=== PATIENT | male | born 1945 | race Caucasian/White ===

== ENCOUNTER 2017-02-03 15:02 | Emergency (ER) | payer MEDICARE, MEDICAID ==
--- NOTE | 2017-02-03 15:12 | ER Document Report ---
ED Cardiac - General Chief Complaint: Chest Pain > 30 Stated Complaint: DIZZINESS Notes: The patient is a 71-year-old male, past medical history diabetes, hypertension, CAD s/p 3 stents, vascular dementia, presents with 4 weeks of intermittent dizziness described as room spinning. He says the dizziness is worse when he stands up. He also having intermittent chest pain over the same time period. He denies numbness, tingling, headache, current chest pain, shortness of breath , back pain, blurry vision, fevers, chills, neck pain or rash. TRAVEL OUTSIDE OF THE [place] IN LAST 30 DAYS: No - Related Data Allergies/Adverse Reactions: No Known Allergies Allergy (Verified 02/03/17 15:44) Past Medical History - General Information source: Patient - Social History Smoking Status: Unknown if Ever Smoked Family History: Reviewed & Not Pertinent - Past Medical History Cardiac Medical History: Reports: Hx Coronary Artery Disease, Hx Heart Attack, Hx Hypercholesterolemia, Hx Hypertension Pulmonary Medical History: Reports: Hx Pneumonia Denies: Hx Tuberculosis Endocrine Medical History: Reports: Hx Diabetes Mellitus Type 2 Musculoskeltal Medical History: Reports Hx Arthritis Psychiatric Medical History: Reports: Hx Anxiety, Hx Depression Traumatic Medical History: Reports: Hx Fractures - left arm childhood Past Surgical History: Reports: Hx Cardiac Catheterization - Stent x3, Hx Cholecystectomy, Hx Coronary Stent. Denies: Hx Pacemaker - Immunizations Immunizations up to date: Yes Hx Diphtheria, Pertussis, Tetanus Vaccination: No Hx Pneumococcal Vaccination: 09/20/10 Review of Systems - Review of Systems Notes: REVIEW OF SYSTEMS: CONSTITUTIONAL: -fevers, -chills EENT: -eye pain, -difficulty swallowing, -nasal congestion CARDIOVASCULAR: +chest pain, -syncope. RESPIRATORY: -cough, -SOB GASTROINTESTINAL: -abdominal pain, -nausea, -vomiting, -diarrhea GENITOURINARY: -dysuria, -hematuria MUSCULOSKELETAL: -back pain, -neck pain SKIN: -rash or skin lesions. HEMATOLOGIC: -easy bruising or bleeding. LYMPHATIC: -swollen, enlarged glands. NEUROLOGICAL: -altered mental status or loss of consciousness, -headache, + dizziness PSYCHIATRIC: -anxiety, -depression. ALL OTHER SYSTEMS REVIEWED AND NEGATIVE. Physical Exam - Vital signs Vitals: Temp Pulse Resp BP Pulse Ox 98.1 F 59 L 20 148/69 H 94 02/03/17 15:15 02/03/17 15:15 02/03/17 15:15 02/03/17 15:15 02/03/17 15:15 - Notes Notes: PHYSICAL EXAMINATION: GENERAL: Well-appearing, well-nourished and in no acute distress. HEAD: Atraumatic, normocephalic. EYES: Horizontal nystagmus when looking right. Pupils equal round and reactive to light, extraocular movements intact, sclera anicteric, conjunctiva are normal. ENT: nares patent, oropharynx clear without exudates. Moist mucous membranes. NECK: Normal range of motion, supple without lymphadenopathy LUNGS: Breath sounds clear to auscultation bilaterally and equal. No wheezes rales or rhonchi. HEART: Regular rate and rhythm without murmurs ABDOMEN: Soft, nontender, normoactive bowel sounds. No guarding, no rebound. No masses appreciated. EXTREMITIES: Normal range of motion, no pitting or edema. No cyanosis. NEUROLOGICAL: +past pointing. Cranial nerves grossly intact. Normal speech, normal gait. Normal sensory, motor, and reflex exams. PSYCH: Normal mood, normal affect. SKIN: Warm, Dry, normal turgor, no rashes or lesions noted. Course - Re-evaluation Re-evalutation: Patient does have symptoms of posterior cerebellar involvement. Will obtain CT head and then MRI of the brain to assess posterior circulation. He already received 162 mg aspirin by EMS earlier today. He does not have any chest pain at this time. HEART score is 3. 02/03/17 21:58 Pt's MRI of the brain does not show any evidence of posterior cerebellar involvement or any other acute changes. Patient's symptoms consistent with a vertigo and treated with meclizine. Chest pain is atypical in nature and has been ongoing for some the last month. 2 sets of troponins are negative and EKG does not show any ischemic changes. Will have patient follow with his primary care physician for further evaluation and treatment. Patient comfortable with plan. - Vital Signs Vital signs: Temp Pulse Resp BP Pulse Ox 98.0 F 55 L 16 165/82 H 95 02/03/17 19:01 02/03/17 18:15 02/03/17 21:31 02/03/17 21:31 02/03/17 21:31 - Laboratory Result Diagrams: 02/03/17 16:34 02/03/17 16:34 Laboratory results interpreted by me: 03/17/17 03/17/17 16:34 16:34 RBC 3.92 L Hgb 12.1 L Hct 36.3 L Glucose 331 H - Diagnostic Test Radiology reviewed: Image reviewed, Reports reviewed - EKG Interpretation by Me EKG shows normal: Sinus rhythm, [place], Intervals, QRS Complexes, ST-T Waves Voltage: Consistant with LVH When compared to previous EKG there are: No significant change Discharge - Discharge Clinical Impression: Vertigo Chest pain Qualifiers: Chest pain type: unspecified Qualified Code(s): R07.9 - Chest pain, unspecified Condition: Good Disposition: HOME, SELF-CARE Additional Instructions: Your CAT scan of the head and MRI of the brain did not show any evidence of stroke causing her dizziness. You do have symptoms of vertigo and meclizine may help with her symptoms. The blood work and EKG looking at your heart does not show any evidence of acute heart attack. He must follow-up with her primary care physician for further evaluation and treatment. Return immediately to the emergency room if he have worsening chest pain or any other concerns. Vertigo You have experienced an episode of vertigo -- a whirling dizziness which may be accompanied by nausea and vomiting or staggering. Vertigo is often caused by an irritation of the inner ear, in which case it is called labyrinthitis. It can also be a symptom of a degenerating inner ear, nerve damage, or brain injury. Your physician has evaluated you to determine whether any further testing is necessary. Vertigo is often treated with dramamine or meclizine. These medications are helpful, but stronger medication may be needed if you are vomiting. Rest in bed. You should not drive or operate machinery until completely better. It may take one to three weeks for recovery. If there are new symptoms, such as decreased hearing or vision, severe headache, weakness or faintness, or confusion, call the physician. CHEST PAIN OF UNCLEAR CAUSE: The exact cause of your chest pain isn't clear. Fortunately, there is no evidence of a dangerous medical condition. Further testing may be required to find the source of the pain. Most often, we find that this pain is coming from the chest wall -- the muscles or rib joints in the chest. But chest pain can come from the lung and lung lining, the esophagus, the heart valves or heart lining, and even the stomach or gallbladder. Rest. Eat lightly until the pain is gone. We may prescribe medicine for pain and inflammation. You should call the physician immediately if the pain radiates to the shoulder, jaw or arms; if you start to run a fever or develop a cough; or if you develop shortness of breath, or other new or alarming symptoms. NORMAL EXAM AND WORKUP: At this time, your examination and workup show no significant abnormality. No significant abnormal physical findings were noted. All laboratory, EKG, and imaging (x-ray, CT scans, ultrasound) studies that were ordered show no significant abnormality. Although your examination and all studies that were ordered showed no significant abnormal finding, there are no examinations and no studies that are 100% accurate. There is always the possibility that some abnormality could exist and not be detected with physical examination or within the limits and capabilities of laboratory and other studies. You should return or follow up as you were instructed on your visit today for further evaluation if your symptoms do not resolve. CHEST WALL PAIN: Your chest pain may be coming from the chest wall. This is often caused by straining the muscles or joints in the chest during physical activity, direct trauma, coughing, or vigorous vomiting. Persons with arthritis are especially prone to this type of pain, due to inflammation of the cartilage joints near the breast bone. Occasionally, no cause can be found. Rest from strenuous physical activity. This kind of chest pain is usually made worse by movement of the chest. Depending on the symptoms, we may prescribe medicine for pain, muscle relaxation, and antiinflammatory effects. If the pain is new, and seems to be due to muscle strain, cold packs can help. Otherwise, apply gentle warmth to the painful area for 15 minutes every hour or two. You should call contact the doctor immediately if things change. Further evaluation is needed if you develop a fever or cough, if the nature of the pain changes, or if you become short of breath. ANGINA EPISODE: Your physician has diagnosed the pain you experienced as an episode of angina. Angina occurs when a portion of the heart muscle temporarily lacks oxygen. It does not cause any permanent heart damage, but serves as a warning. Hospitalization is not necessary now. Evaluation of your cardiac condition , and medical therapy for angina will be necessary. It's important you be sure to keep all appointments and take medication exactly as prescribed. Angina is usually treated with a type of "nitrate" medication. This is available as ointment, pills, or sublingual (under the tongue) tablets. Depending on your clinical situation, other medications may be added to help control angina. These may include beta blockers or calcium blockers. If episodes of angina are occurring with increased frequency, or if chest pain lasts longer than 15 minutes or does not respond to nitroglycerin, you must seek emergency medical care immediately. ACID REFLUX DISEASE (GERD): Gastro-Esophageal Reflux Disease (GERD) is caused by stomach acid refluxing back up into the esophagus. The valve at the end of the esophagus may be weak. This is common in persons with a hiatal hernia. GERD symptoms can include indigestion, chest pain, heartburn, or food "sticking." Certain foods, alcohol, and aspirin can make GERD worse. Treatment depends on the severity. Usually, antacids or acid-suppressing medicines are used. When the esophagus is acutely inflamed, the physician will often prescribe membrane-protective drugs such as Carafate. Some patients benefit from medication such as Reglan that tightens the valve at the top of the stomach. Avoid those foods that bring on your symptoms. For many people, these foods are coffee, chocolate, onions, garlic, and carbonated drinks. Don't use alcohol, aspirin, caffeine, or tobacco. Don't eat late at night -- within 4 hours of bedtime. Don't over-eat. If necessary, elevate the head of your bed about 4 inches so that stomach acid will not roll up into your esophagus. Call the doctor if you develop severe chest pain, inability to swallow fluids, fever, or worsening symptoms. ASPIRIN: Aspirin has been shown to have a beneficial effect on blood circulation by reducing the clotting effect of platelets in the blood. These beneficial effects can be achieved by taking just a single baby (81 mg) aspirin a day. It is recommended that any person over the age of forty take a single baby aspirin every day for heart and brain circulation, unless you are allergic to aspirin or have some significant bleeding disorder. It is strongly recommended that people who have proven cardiac or blood circulation disturbances should take a baby aspirin every day. NITRATES: Nitroglycerin and related longer-acting nitrate medications are used to prevent or treat attacks of angina. These medicines dilate blood vessels, decreasing the work of the heart, and improving its supply of oxygen. Many different forms are available, including sublingual tablets (used under the tongue), sprays, skin patches, and long-acting pills. If the particular form of medication you have been given is not working well for you, contact your doctor. Long-acting forms: Take exactly as prescribed. Sudden stopping of medication can provoke increased attacks. Sublingual tabs or spray: A headache will usually occur with use. Sit or lie while waiting for the pain to go away. If angina doesn't respond to three doses (five minutes apart), call for emergency assistance. ANTACID THERAPY: You have been instructed to start antacid therapy. Antacids directly neutralize stomach acid. This is useful for acid irritation of the esophagus, gastritis, and ulcers. You should take two tablespoons of antacid one hour after each meal and three hours after each meal. If you are not eating, take the antacid every two hours. If you are using a concentrate (such as Maalox TC), use only one tablespoon. Many antacids affect the bowels. The most common problem is diarrhea. In this case, a pure aluminum hydroxide antacid (such as AlternaGel) can be substituted for some or all doses. If the problem is constipation, add a teaspoon of Milk of Magnesia to each dose. Call the doctor if you experience continued diarrhea or constipation, or if you develop lightheadedness, bloody stool or vomitus, severe abdominal pain, or black stool. PRILOSEC (ACID PUMP INHIBITOR): Prilosec (omeprazole) is an acid-pump inhibitor. It blocks the secretion of hydrogen ions in the acid-producing cells of the stomach. Prilosec keeps your stomach from making acid. Take all medication as prescribed, even after the pain is gone. Regular antacids may be added as needed if you have symptoms while taking this medicine. There are usually no side effects from this medication. Contact your doctor if there is fever, rash, yellow skin color, increasing abdominal pain, weakness, or unusual bruising. Return at once if you develop lightheadedness, black or bloody stool, or bloody vomitus. ORAL NARCOTIC MEDICATION: You have been given a prescription for pain control. This medication is a narcotic. It's best taken with food, as nausea can result if taken on an empty stomach. Don't operate machinery or drive within six hours of taking this medication. Do not combine this medicine with alcohol, or with any medication which can cause sedation (such as cold tablets or sleeping pills) unless you get permission from the physician. Narcotics tend to cause constipation. If possible, drink plenty of fluids and eat a diet high in fiber and fruits. Please be aware that prescription narcotics also have the potential for abuse. People become addicted to these medications because of the general sense of wellbeing that they induce. This feeling along with a significant reduction in tension, anxiety, and aggression provides a stimulating seductive quality to these drugs. Once your pain is under control, we encourage you to discard your unused narcotics. FOLLOW-UP CARE: If you have been referred to a physician for follow-up care, call the physician s office for an appointment as you were instructed or within the next two days. If you experience worsening or a significant change in your symptoms, notify the physician immediately or return to the Emergency Department at any time for re-evaluation. Prescriptions: Meclizine HCl 25 mg PO Q8H PRN #10 tablet PRN Reason:
[2017-02-03] MEDS ORDERED: NORMAL SALINE 1000 ML 1,000 ML IV ONE (15:43)
[2017-02-03 16:50] LABS: ABSOLUTE BASOPHILS # (AUTO) 0.1 10^3/uL (0.0-0.2); ABSOLUTE EOSINOPHILS # (AUTO) 0.2 10^3/uL (0.0-0.6); ABSOLUTE LYMPHOCYTES (AUTO) 1.7 10^3/uL (0.5-4.7); ABSOLUTE MONOCYTES (AUTO) 0.7 10^3/uL (0.1-1.4); ABSOLUTE NEUT (AUTO) 4.8 10^3/uL (1.7-8.2); BASOPHILS % (AUTO) 0.8 % (0-2); EOSINOPHILS % (AUTO) 2.4 % (0-6); HEMATOCRIT 36.3 % (37.9-51.0); HEMOGLOBIN 12.1 g/dL (13.5-17.0); LYMPHOCYTES % (AUTO) 22.9 % (13-45); MEAN CORPUSCULAR HEMOGLOBIN 30.9 pg (27.0-33.4); MEAN CORPUSCULAR HGB CONC 33.4 g/dL (32.0-36.0); MEAN CORPUSCULAR VOLUME 93 fl (80-97); MONOCYTES % (AUTO) 9.7 % (3-13); RED BLOOD COUNT 3.92 10^6/uL (4.35-5.55); RED CELL DISTRIBUTION WIDTH 13.3 % (11.5-14.0); SEGMENTED NEUTROPHILS % (AUTO) 64.2 % (42-78); WHITE BLOOD COUNT 7.5 10^3/uL (4.0-10.5)
[2017-02-03 17:24] LABS: ALANINE AMINOTRANSFERASE 21 U/L (21-72); ALBUMIN 3.6 g/dL (3.5-5.0); ALKALINE PHOSPHATASE 107 U/L (38-126); ANION GAP 12 (5-19); ASPARTATE AMINO TRANSFERASE 40 U/L (17-59); BILIRUBIN,TOTAL 0.4 mg/dL (0.2-1.3); BLOOD UREA NITROGEN 13 mg/dL (7-20); CALCIUM 8.6 mg/dL (8.4-10.2); CARBON DIOXIDE 28 mmol/L (22-30); CHLORIDE 99 mmol/L (98-107); CREATINE KINASE 130 U/L (55-170); CREATININE RESULT 0.71 mg/dL (0.52-1.25); GLUCOSE 331 mg/dL (75-110); LIPASE 75.1 U/L (23-300); POTASSIUM 4.1 mmol/L (3.6-5.0); SODIUM 138.8 mmol/L (137-145); TOTAL PROTEIN 6.7 g/dL (6.3-8.2)
[2017-02-03] MEDS ORDERED: MIDAZOLAM 2 MG/2 ML INJ IV ONE (19:01)
[2017-02-03] MEDS ORDERED: MECLIZINE HCL 25 MG TABLET PO ONE (21:49)
[2017-02-04 01:04] VITALS: BP 136/82
--- NOTE | 2017-02-04 16:07 | EKG REPORT ---
SEVERITY:- NORMAL ECG - SINUS RHYTHM : Confirmed by: Yessenia Hutchins MD 04-Feb-2017 16:06:21
== END 2017-02-04 01:05 | disposition home or self-care (01) ==
LOC: ER 15:02
DX: R42 Dizziness and giddiness (principal); H55.00 Unspecified nystagmus; R07.89 Other chest pain; I25.10 Atherosclerotic heart disease of native coronary artery without angina pectoris; I25.2 Old myocardial infarction; I10 Essential (primary) hypertension; E11.9 Type 2 diabetes mellitus without complications; F01.50 Vascular dementia, unspecified severity, without behavioral disturbance, psychotic disturbance, mood disturbance, and anxiety
CPT/HCPCS: 93005; 99285; 96374; 36415; 82550; 83690; 85025; 80053; 84484; 70551; 71010; 70450; 93010; J2250; A9270; J7030

== ENCOUNTER 2017-08-29 00:16 | Emergency (ER) | payer MEDICARE, MEDICAID ==
--- NOTE | 2017-08-29 01:13 | ER Document Report ---
ED General - General Chief Complaint: Chest Pain > 30 Stated Complaint: GENERAL WEAKNESS, HIGH BLOOD PRESSURE Time Seen by Provider: 08/29/17 00:35 Notes: 71-year-old male from on his last presenting with multiple symptoms. Intermittent chest tightness for 2 weeks associated with generalized weakness and headache. Symptoms are intermittent. Poorly described by patient likely secondary to dementia. Noted to be hypertensive and generally weak around the house. History of cardiac stents. : History limited by dementia TRAVEL OUTSIDE OF THE [place] IN LAST 30 DAYS: No - Related Data Allergies/Adverse Reactions: No Known Allergies Allergy (Verified 02/03/17 15:44) Past Medical History - Social History Smoking Status: Never Smoker Family History: Reviewed & Not Pertinent - Past Medical History Cardiac Medical History: Reports: Hx Coronary Artery Disease, Hx Heart Attack, Hx Hypercholesterolemia, Hx Hypertension Pulmonary Medical History: Reports: Hx Pneumonia Denies: Hx Tuberculosis Endocrine Medical History: Reports: Hx Diabetes Mellitus Type 2 Musculoskeltal Medical History: Reports Hx Arthritis Psychiatric Medical History: Reports: Hx Anxiety, Hx Depression Traumatic Medical History: Reports: Hx Fractures - left arm childhood Past Surgical History: Reports: Hx Cardiac Catheterization - Stent x3, Hx Cholecystectomy, Hx Coronary Stent. Denies: Hx Pacemaker - Immunizations Immunizations up to date: Yes Hx Diphtheria, Pertussis, Tetanus Vaccination: No Hx Pneumococcal Vaccination: 09/20/10 Review of Systems - Review of Systems Notes: REVIEW OF SYSTEMS Unit secondary to dementia PHYSICAL EXAMINATION General: No acute distress, well-nourished Head: Atraumatic, normocephalic ENT: Mouth normal, oropharynx moist, no exudates or tonsillar enlargement Eyes: Conjunctiva normal, pupils equal, lids normal Neck: No JVD, supple, no guarding CVS: Normal rate, regular rhythm, no murmurs Resp: No resp distress, equal and normal breath sounds bilaterally GI: Nondistended, soft, no tenderness to palpation, no rebound or guarding Ext: No deformities, no edema, normal range of motion in upper and lower ext Back: No CVA or midline TTP Skin: No rash, warm Lymphatic: No lymphadeopathy noted Neuro: Awake, alert. Knows the year and where he is and his name. Face symmetric. GCS 15. -: Yes ROS unobtainable due to patient's medical condition Physical Exam - Vital signs Vitals: Temp Pulse Pulse Ox 97.8 F 57 L 94 10/10/17 00:28 08/29/17 00:28 08/29/17 00:28 Course - Re-evaluation Re-evalutation: 08/29/17 01:13 71-year-old male presents with hypertension generalized weakness and intermittent chest pressure. No stigmata of stroke on exam. Will rule out ACS and get electrolytes. Differential includes electrolyte abnormality acute coronary syndrome, infection. Dehydration. 08/29/17 05:49 Reassessed at 5 AM. He has now has had 2 troponins both negative and unchanged EKG and unchanged chest x-ray. His mental status remains stable and his labs are all normal. No evidence of infection. No signs or symptoms of urinary tract infection and no fever. I think that given the 2 negative troponins and his overall clinical status especially the story of being quite nonspecific for ACS that he is stable for discharge back to his facility with follow-up at the facility doctor. 08/29/17 05:50 08/29/17 05:50 I have discussed with the patient there likely diagnosis, aftercare plan, follow -up plans and my usual and customary return precautions. They verbalized understanding of this. - Vital Signs Vital signs: Temp Pulse Resp BP Pulse Ox 97.8 F 58 L 158/89 H 97 08/29/17 00:28 08/29/17 00:35 08/29/17 04:01 08/29/17 00:35 - Laboratory Result Diagrams: 08/29/17 01:20 08/29/17 01:20 Laboratory results interpreted by me: 08/29/17 08/29/17 08/29/17 01:20 01:20 01:20 RBC 4.14 L Hgb 13.0 L Hct 37.8 L RDW 14.2 H Glucose 199 H Urine Glucose (UA) 50 H - Diagnostic Test Radiology reviewed: Image reviewed, Reports reviewed Discharge - Discharge Clinical Impression: Generalized weakness Chest pain Qualifiers: Chest pain type: unspecified Qualified Code(s): R07.9 - Chest pain, unspecified Condition: Good Disposition: HOME, SELF-CARE Instructions: Chest Pain of Unclear Cause ([facility]), Weakness ([facility]) Additional Instructions: Please see your regular doctor or the doctor which works at your facility within 5 days for a recheck.
[2017-08-29 01:53] LABS: ABSOLUTE BASOPHILS # (AUTO) 0.1 10^3/uL (0.0-0.2); ABSOLUTE EOSINOPHILS # (AUTO) 0.3 10^3/uL (0.0-0.6); ABSOLUTE LYMPHOCYTES (AUTO) 2.2 10^3/uL (0.5-4.7); ABSOLUTE MONOCYTES (AUTO) 0.9 10^3/uL (0.1-1.4); ABSOLUTE NEUT (AUTO) 5.9 10^3/uL (1.7-8.2); BASOPHILS % (AUTO) 0.7 % (0-2); EOSINOPHILS % (AUTO) 3.1 % (0-6); HEMATOCRIT 37.8 % (37.9-51.0); HGB HCT DIFFERENCE 1.2; LYMPHOCYTES % (AUTO) 23.5 % (13-45); MEAN CORPUSCULAR HEMOGLOBIN 31.5 pg (27.0-33.4); MEAN CORPUSCULAR HGB CONC 34.4 g/dL (32.0-36.0); MEAN CORPUSCULAR VOLUME 92 fl (80-97); MONOCYTES % (AUTO) 9.2 % (3-13); RED BLOOD COUNT 4.14 10^6/uL (4.35-5.55); RED CELL DISTRIBUTION WIDTH 14.2 % (11.5-14.0); SEGMENTED NEUTROPHILS % (AUTO) 63.5 % (42-78); WHITE BLOOD COUNT 9.3 10^3/uL (4.0-10.5)
[2017-08-29 01:58] LABS: APPEARANCE,URINE CLEAR; BILIRUBIN,URINE NEGATIVE (NEGATIVE); GLUCOSE, URINE 50 mg/dL (NEGATIVE); KETONES,URINE NEGATIVE (NEGATIVE); LEUKOCYTE ESTERASE,URINE NEGATIVE (NEGATIVE); NITRITE,URINE NEGATIVE (NEGATIVE); PROTEIN,URINE NEGATIVE (NEGATIVE); URINE SPECIFIC GRAVITY 1.001; UROBILINOGEN,URINE NEGATIVE mg/dL (<2.0)
[2017-08-29 02:06] LABS: ANION GAP 13 (5-19); BLOOD UREA NITROGEN 7 mg/dL (7-20); CALCIUM 9.4 mg/dL (8.4-10.2); CARBON DIOXIDE 29 mmol/L (22-30); CHLORIDE 100 mmol/L (98-107); GLUCOSE 199 mg/dL (75-110); POTASSIUM 3.6 mmol/L (3.6-5.0); SODIUM 141.8 mmol/L (137-145)
--- NOTE | 2017-08-29 05:12 | RADIOLOGY REPORT (SQ) ---
EXAM DESCRIPTION: CHEST SINGLE VIEW COMPLETED DATE/TIME: 08/29/2017 4:51 am REASON FOR STUDY: sob COMPARISON: None. EXAM PARAMETERS: NUMBER OF VIEWS: One view. TECHNIQUE: Single frontal radiographic view of the chest acquired. RADIATION DOSE: NA LIMITATIONS: None. FINDINGS: LUNGS AND PLEURA: Moderate interstitial markings with peripheral predominance, left more t merrill right. MEDIASTINUM AND HILAR STRUCTURES: No masses. Contour normal. HEART AND VASCULAR STRUCTURES: Mild -moderate enlargement of the cardiac silhouette. Atherosclerosis . BONES: No acute findings. HARDWARE: None in the chest. OTHER: No other significant finding. IMPRESSION: No significant interval change. Cardiac enlargement. Chronic interstitial lung disease . TECHNICAL DOCUMENTATION: JOB ID: [id number]
[2017-08-29] MEDS ORDERED: ACETAMINOPHEN 325 MG TABLET ONE (06:33)
[2017-08-29] MEDS ORDERED: ACETAMINOPHEN 325 MG TABLET PO ONE (06:34)
--- NOTE | 2017-08-29 08:11 | EKG REPORT ---
SEVERITY:- ABNORMAL ECG - SINUS RHYTHM LVH WITH SECONDARY REPOLARIZATION ABNORMALITY : Confirmed by: Ian Ricardo MD 29-Aug-2017 08:11:39
[2017-08-29 08:41] VITALS: BP 157/90
== END 2017-08-29 08:40 | disposition home or self-care (01) ==
LOC: ER 00:16
DX: R53.1 Weakness (principal); R07.9 Chest pain, unspecified; R51 Headache; I25.10 Atherosclerotic heart disease of native coronary artery without angina pectoris; E78.00 Pure hypercholesterolemia, unspecified; I10 Essential (primary) hypertension; E11.9 Type 2 diabetes mellitus without complications; I25.2 Old myocardial infarction; Z90.49 Acquired absence of other specified parts of digestive tract
CPT/HCPCS: 93005; 99285; 36415; 85025; 80048; 81001; 84484; 71010; 93010; A9270

== ENCOUNTER 2018-01-01 16:17 | Inpatient (IN) | payer MEDICARE, MEDICAID ==
[2018-01-01] MEDS ORDERED: ASPIRIN 325 MG TABLET PO ONE (16:44)
--- NOTE | 2018-01-01 16:44 | RADIOLOGY REPORT (SQ) ---
EXAM DESCRIPTION: CT HEAD WITHOUT COMPLETED DATE/TIME: 01/01/2018 4:31 pm REASON FOR STUDY: stroke s/s COMPARISON: 02/03/2017 TECHNIQUE: Axial images acquired through the brain without intravenous contrast. Images reviewed wi th bone, brain and subdural windows. Images stored on PACS. All CT scanners at this facility use dose modulation, iterative reconstruction, and/or weight based d osing when appropriate to reduce radiation dose to as low as reasonably achievable (ALARA). [facility]: Dose Right [facility]: CareDose [facility]: Dose Right [facility]: Teradose 4D [facility]: [employer] RADIATION DOSE: mGy. LIMITATIONS: None. FINDINGS: VENTRICLES: Prominent. CEREBRUM: No masses. No hemorrhage. No midline shift. Areas of low density in the white matter mos t likely due to chronic micro-vascular ischemic change. No evidence for acute infarction. CEREBELLUM: Vague low density in the right cerebellar hemisphere. No hemorrhage. No mass effect. EXTRAAXIAL SPACES: Age-related involutional change. No fluid collections. No masses. ORBITS AND GLOBE: No intra- or extraconal masses. Normal contour of globe without masses. CALVARIUM: No fracture. PARANASAL SINUSES: No fluid or mucosal thickening. SOFT TISSUES: No mass or hematoma. OTHER: No other significant finding. IMPRESSION: Possible evolving infarct right cerebellar hemisphere. Atrophy and microvascular ischemia. EVIDENCE OF ACUTE STROKE: YES. RIGHT VERTEBROBASILAR COMMENT: Pertinent findings on the imaging study reported as a CRITICAL RESULT to ER PROVIDER at16 :38 on 01/01/2018. Category of Critical Result: Acute stroke TECHNICAL DOCUMENTATION: JOB ID: [id number] Quality ID # [id number]: Final reports with documentation of one or more dose reduction techniques (e.g., Au tomated exposure control, adjustment of the mA and/or kV according to patient size, use of iterative reconstruction technique) 2010 [email or web address]- All Rights Reserved
[2018-01-01 16:54] LABS: ABSOLUTE BASOPHILS # (AUTO) 0.1 10^3/uL (0.0-0.2); ABSOLUTE EOSINOPHILS # (AUTO) 0.3 10^3/uL (0.0-0.6); ABSOLUTE LYMPHOCYTES (AUTO) 2.3 10^3/uL (0.5-4.7); ABSOLUTE MONOCYTES (AUTO) 0.8 10^3/uL (0.1-1.4); ABSOLUTE NEUT (AUTO) 5.7 10^3/uL (1.7-8.2); BASOPHILS % (AUTO) 0.9 % (0-2); EOSINOPHILS % (AUTO) 3.5 % (0-6); HEMATOCRIT 34.9 % (37.9-51.0); HEMOGLOBIN 11.7 g/dL (13.5-17.0); LYMPHOCYTES % (AUTO) 25.2 % (13-45); MEAN CORPUSCULAR HEMOGLOBIN 30.8 pg (27.0-33.4); MEAN CORPUSCULAR HGB CONC 33.4 g/dL (32.0-36.0); MEAN CORPUSCULAR VOLUME 92 fl (80-97); MONOCYTES % (AUTO) 8.4 % (3-13); PLATELET COUNT 237 10^3/uL (150-450); RED BLOOD COUNT 3.78 10^6/uL (4.35-5.55); RED CELL DISTRIBUTION WIDTH 14.2 % (11.5-14.0); TOTAL CELLS COUNTED % (AUTO) 100 %; WHITE BLOOD COUNT 9.2 10^3/uL (4.0-10.5)
[2018-01-01 16:56] LABS: INTERNATIONAL RATION (INR) 0.99; PROTHROMBIN TIME 13.8 SEC (11.4-15.4)
[2018-01-01] MEDS ORDERED: LORAZEPAM INJ 2 MG/1 ML VIAL ONE (16:56)
[2018-01-01 16:57] LABS: PARTIAL THROMBOPLASTIN TIME 32.8 SEC (23.5-35.8)
--- NOTE | 2018-01-01 17:02 | RADIOLOGY REPORT (SQ) ---
EXAM DESCRIPTION: CHEST SINGLE VIEW COMPLETED DATE/TIME: 01/01/2018 4:39 pm REASON FOR STUDY: stroke s/s COMPARISON: 05/21/2016 EXAM PARAMETERS: NUMBER OF VIEWS: One view. TECHNIQUE: Single frontal radiographic view of the chest acquired. RADIATION DOSE: NA LIMITATIONS: Shallow inspiration. Patient body habitus FINDINGS: LUNGS AND PLEURA: The right lung is generally clear. Consolidation noted left lung base c oncerning for pulmonary infiltrate and/or pleural fluid. MEDIASTINUM AND HILAR STRUCTURES: Prominent HEART AND VASCULAR STRUCTURES: Cardiomegaly. Vascular congestion not excluded. BONES: No acute findings. HARDWARE: None in the chest. OTHER: No other significant finding. IMPRESSION: Limited filming. Opacification left lung base Cardiomegaly. TECHNICAL DOCUMENTATION: JOB ID: [id number] [employer] All Rights Reserved
[2018-01-01 17:11] LABS: ALANINE AMINOTRANSFERASE 35 U/L (21-72); ALKALINE PHOSPHATASE 87 U/L (38-126); ANION GAP 10 (5-19); ASPARTATE AMINO TRANSFERASE 27 U/L (17-59); BILIRUBIN,DIRECT 0.3 mg/dL (0.0-0.4); BILIRUBIN,TOTAL 0.4 mg/dL (0.2-1.3); BLOOD UREA NITROGEN 8 mg/dL (7-20); CALCIUM 9.6 mg/dL (8.4-10.2); CARBON DIOXIDE 28 mmol/L (22-30); CHLORIDE 98 mmol/L (98-107); CREATINE KINASE 274 U/L (55-170); GLUCOSE 125 mg/dL (75-110); POTASSIUM 3.9 mmol/L (3.6-5.0); SODIUM 135.8 mmol/L (137-145); TOTAL PROTEIN 7.2 g/dL (6.3-8.2)
[2018-01-01] MEDS ORDERED: LORAZEPAM INJ 2 MG/1 ML VIAL IV ONE (17:11)
--- NOTE | 2018-01-01 17:11 | ER Document Report ---
ED Neuro Symptoms/Deficit - General Chief Complaint: Slurred Speech Stated Complaint: SLURRED SPEECH Time Seen by Provider: 01/01/18 16:33 Notes: The patient is a 72-year-old male, past medical history vascular dementia with behavioral disturbances, anxiety, hypertension, hyperlipidemia, presents with acute onset of slurred speech at 15:15, according to MD and EMS records. On arrival to the ER, the patient is continuing to ask for a diet Pepsi. He continues to repeat his request. Patient denies any pain or any other complaints. TRAVEL OUTSIDE OF THE [place] IN LAST 30 DAYS: No - Related Data Allergies/Adverse Reactions: No Known Allergies Allergy (Verified 02/03/17 15:44) Past Medical History - General Cannot obtain history due to: Uncooperative - Social History Smoking Status: Unknown if Ever Smoked Family History: Reviewed & Not Pertinent - Past Medical History Cardiac Medical History: Reports: Hx Coronary Artery Disease, Hx Heart Attack, Hx Hypercholesterolemia, Hx Hypertension Pulmonary Medical History: Reports: Hx Pneumonia Denies: Hx Tuberculosis Endocrine Medical History: Reports: Hx Diabetes Mellitus Type 2 Musculoskeltal Medical History: Reports Hx Arthritis Psychiatric Medical History: Reports: Hx Anxiety, Hx Depression Traumatic Medical History: Reports: Hx Fractures - left arm childhood Past Surgical History: Reports: Hx Cardiac Catheterization - Stent x3, Hx Cholecystectomy, Hx Coronary Stent. Denies: Hx Pacemaker - Immunizations Immunizations up to date: Yes Hx Diphtheria, Pertussis, Tetanus Vaccination: No Hx Pneumococcal Vaccination: 09/20/10 Review of Systems - Review of Systems Notes: REVIEW OF SYSTEMS: CONSTITUTIONAL: -fevers, -chills EENT: -eye pain, -difficulty swallowing, -nasal congestion CARDIOVASCULAR: -chest pain, -syncope. RESPIRATORY: -cough, -SOB GASTROINTESTINAL: -abdominal pain, -nausea, -vomiting, -diarrhea GENITOURINARY: -dysuria, -hematuria MUSCULOSKELETAL: -back pain, -neck pain SKIN: -rash or skin lesions. HEMATOLOGIC: -easy bruising or bleeding. LYMPHATIC: -swollen, enlarged glands. NEUROLOGICAL: -altered mental status or loss of consciousness, -headache, + slurred speech PSYCHIATRIC: -anxiety, -depression. ALL OTHER SYSTEMS REVIEWED AND NEGATIVE. Physical Exam - Notes Notes: PHYSICAL EXAMINATION: GENERAL: No acute distress. Walking around room and repeating, "Give me a Diet Pepsi." HEAD: Atraumatic, normocephalic. EYES: Pupils equal round and reactive to light, extraocular movements intact, sclera anicteric, conjunctiva are normal. ENT: nares patent, oropharynx clear without exudates. Moist mucous membranes. NECK: Normal range of motion, supple without lymphadenopathy LUNGS: Breath sounds clear to auscultation bilaterally and equal. No wheezes rales or rhonchi. HEART: Regular rate and rhythm without murmurs ABDOMEN: Soft, nontender, normoactive bowel sounds. No guarding, no rebound. No masses appreciated. EXTREMITIES: Normal range of motion, no pitting or edema. No cyanosis. NEUROLOGICAL: Cranial nerves grossly intact. Mild dysarthria and aphasia, normal gait. Normal finger to nose and no past pointing. Normal sensory and motor exams. PSYCH: Mildly agitated. Redirectable. SKIN: Warm, Dry, normal turgor, no rashes or lesions noted. Course - Re-evaluation Re-evalutation: Call from radiology. Possible acute vertebrobasilar stroke found on CAT scan. No bleeds. Patient says he has mild aphasia and dysarthria. His NIH stroke scale is 2. He does not have any evidence of posterior cerebellar signs on physical exam. He has a steady gait without any past pointing. 01/01/18 16:55 Placed call to [facility] to discuss case with Neurology (no Neurology transmission superintendent at [facility]). Awaiting callback. 01/01/18 17:00 Called into room by RN. Patient began to have arm shaking and was spitting. There was concern for a possible seizure, although I suspect it was more behavioral in nature. He was given 2 mg Ativan, since he is on chronic benzos. 01/01/18 17:[address] Sonal Martinez ([facility] Neurologist) and discussed the case. With the low NIH stroke scale, history of dementia and evidence of a possible stroke already on CAT scan, the risks of TPA outweighs any benefit at this time. Recommends obtaining CTA head and neck and admission for further evaluation and treatment. Patient does not require transfer at this time because [facility] is an accredited stroke center. On chest x-ray, there is a left lower lobe opacification, but patient does not have any evidence of pneumonia. No fever, normal white count and no coughing. - Laboratory Result Diagrams: 01/01/18 16:01 01/01/18 16:01 Laboratory results interpreted by me: 01/01/18 01/01/18 16:01 16:01 RBC 3.78 L Hgb 11.7 L Hct 34.9 L RDW 14.2 H Sodium 135.8 L Glucose 125 H Creatine Kinase 274 H - Diagnostic Test Radiology reviewed: Image reviewed, Reports reviewed Radiology results interpreted by me: CT Head: Possible evolving infarct right cerebellar hemisphere. Atrophy and microvascular ischemia. EVIDENCE OF ACUTE STROKE: YES. RIGHT VERTEBROBASILAR. CXR: Limited filming. Opacification left lung base. Cardiomegaly. - EKG Interpretation by Me EKG shows normal: Sinus rhythm, Intervals, QRS Complexes Rate: Normal Voltage: Consistant with LVH When compared to previous EKG there are: No significant change Critical Care Note - Critical Care Note Total time excluding time spent on procedures (mins): 55 Discharge - Discharge Clinical Impression: CVA (cerebral vascular accident) Qualifiers: CVA mechanism: unspecified Qualified Code(s): I63.9 - Cerebral infarction, unspecified Condition: Stable Disposition: ADMITTED INPATIENT Admitting Provider: Hospitalist - [facility] Admitted: [facility]
[2018-01-01 17:23] LABS: CREATINE KINASE MB 1.94 ng/mL (<4.55)
[2018-01-01 17:26] LABS: TROPONIN I < 0.012 ng/mL
--- NOTE | 2018-01-01 18:21 | PDOC H&P ---
History of Present Illness Admission Date/PCP: 01/01/2018 Patient complains of: Slurred speech History of Present Illness: RASHAAD EDOUARD is a 72 year old male with a past history of non-insulin- dependent diabetes, dementia, coronary artery disease, TIAs Who resides in a memory care unit. He was sent to the ED for evaluation of new onset slurred speech. Further history was impossible to obtain as the patient is extremely confused and not oriented Upon evaluation in the ED CT of the brain was suggestive of an evolving right cerebellar hemisphere stroke. Patient was found not to be a candidate for TPA He was referred to hospitalist for admission. Past Medical History Cardiac Medical History: Reports: Coronary Artery Disease, Myocardial Infarction , Hyperlipidema, Hypertension Pulmonary Medical History: Reports: Pneumonia Denies: Tuberculosis Endocrine Medical History: Reports: Diabetes Mellitus Type 2 Musculoskeltal Medical History: Reports: Arthritis Psychiatric Medical History: Reports: Dementia, Depression Past Surgical History Past Surgical History: Reports: Cardiac Catheterization - Stent x3, Cholecystectomy, Coronary Stent Denies: Pacemaker Social History Smoking Status: Unknown if Ever Smoked Frequency of Alcohol Use: None Hx Recreational Drug Use: No Hx Prescription Drug Abuse: No Past Social History Note: Impossible to obtain past social history Patient cannot answer questions appropriately - Advance Directive Resuscitation Status: Full Code Surrogate healthcare decision maker:: Patient is presumed to be a few full code as he cannot answer questions Family History Family History: Reviewed & Not Pertinent Parental Family History Reviewed: No - not available Children Family History Reviewed: No Sibling(s) Family History Reviewed.: No Medication/Allergy Allergies/Adverse Reactions: No Known Allergies Allergy (Verified 02/03/17 15:44) Review of Systems ROS unobtainable: Due to mental status - Cannot obtain review of system Physical Exam Vital Signs: Temp Pulse Resp BP Pulse Ox 98.4 F 60 14 123/79 96 01/01/18 17:32 01/01/18 16:24 01/01/18 17:54 01/01/18 17:54 01/01/18 17:54 General appearance: PRESENT: no acute distress, other - Lethargic moving all 4 extremities Patient had to be sedated Head exam: PRESENT: atraumatic, normocephalic Eye exam: PRESENT: conjunctiva pink, EOMI, PERRLA. ABSENT: scleral icterus Neck exam: ABSENT: carotid bruit, JVD, lymphadenopathy, thyromegaly Respiratory exam: PRESENT: clear to auscultation harsh. ABSENT: rales, rhonchi, wheezes Cardiovascular exam: PRESENT: RRR. ABSENT: diastolic murmur, rubs, systolic murmur Pulses: PRESENT: normal dorsalis pedis pul GI/Abdominal exam: PRESENT: normal bowel sounds, soft. ABSENT: distended, guarding, mass, organolmegaly, rebound, tenderness Extremities exam: ABSENT: calf tenderness, joint swelling Musculoskeletal exam: PRESENT: full ROM Neurological exam: PRESENT: awake, CN II-XII grossly intact Skin exam: PRESENT: dry, intact, warm. ABSENT: cyanosis, rash Results Laboratory Results: 01/01/18 16:01 01/01/18 16:01 01/01/18 01/01/18 16:01 16:01 WBC 9.2 RBC 3.78 L Hgb 11.7 L Hct 34.9 L MCV 92 MCH 30.8 MCHC 33.4 RDW 14.2 H Plt Count 237 Seg Neutrophils % 62.0 Lymphocytes % 25.2 Monocytes % 8.4 Eosinophils % 3.5 Basophils % 0.9 Absolute Neutrophils 5.7 Absolute Lymphocytes 2.3 Absolute Monocytes 0.8 Absolute Eosinophils 0.3 Absolute Basophils 0.1 Sodium 135.8 L Potassium 3.9 Chloride 98 Carbon Dioxide 28 Anion Gap 10 BUN 8 Creatinine 0.83 Est GFR ( Amer) > 60 Est GFR (Non-Af Amer) > 60 Glucose 125 H Calcium 9.6 Total Bilirubin 0.4 AST 27 ALT 35 Alkaline Phosphatase 87 Total Protein 7.2 Albumin 4.0 01/01/18 01/01/18 16:01 16:01 Creatine Kinase 274 H CK-MB (CK-2) 1.94 Troponin I < 0.012 Impressions: Chest X-Ray 01/01/18 16:24 IMPRESSION: Limited filming. Opacification left lung base Cardiomegaly. Head CT 01/01/18 16:24 IMPRESSION: Possible evolving infarct right cerebellar hemisphere. Atrophy and microvascular ischemia. EVIDENCE OF ACUTE STROKE: YES. RIGHT VERTEBROBASILAR Assessment & Plan - Diagnosis (1) CVA (cerebral vascular accident) Qualifiers: CVA mechanism: unspecified Qualified Code(s): I63.9 - Cerebral infarction, unspecified Is this a current diagnosis for this admission?: Yes Plan: Evolving posterior circulation stroke We will treat with aspirin suppository MEND exams Permissive hypertension We will obtain MRA of carotids if test can be performed in a.m. Speech evaluation (2) Diabetes Qualifiers: Diabetes mellitus complication status: with unspecified complications Diabetes mellitus intermediate insulin use: without buttermaker use Is this a current diagnosis for this admission?: Yes Plan: Accu-Chek every 4 hours lispro coverage (3) Hypertension Qualifiers: Hypertension type: essential hypertension Qualified Code(s): I10 - Essential (primary) hypertension Is this a current diagnosis for this admission?: Yes Plan: Hold BP meds permissive hypertension (4) Dementia Qualifiers: Dementia type: unspecified type Is this a current diagnosis for this admission?: Yes (5) Encephalopathy Is this a current diagnosis for this admission?: Yes Plan: Encephalopathy likely sent secondary to the stroke - Time Time Spent with patient: Patient will be admitted to [facility] with telemetry as an inpatient His condition is guarded Time Spent: 50 to 70 Minutes - Inpatient Certification Based on my medical assessment, after consideration of the patient's comorbidities, presenting symptoms, or acuity I expect that the services needed warrant INPATIENT care.: Yes I certify that my determination is in accordance with my understanding of Medicare's requirements for reasonable and necessary INPATIENT services [42 CFR 412.3e].: Yes Medical Necessity: Need Close Monitoring Due to Risk of Patient Decompensation, Need For IV Fluids, Need For Continuous Telemetry Monitoring, Risk of Complication if Not Cared For in Hospital
[2018-01-01] MEDS ORDERED: LABETALOL HCL INJ 20 MG/4 ML DISP.SYRIN IV PRN (18:23)
[2018-01-01 19:08] LABS: APPEARANCE,URINE CLEAR; BILIRUBIN,URINE NEGATIVE (NEGATIVE); COLOR,URINE COLORLESS; GLUCOSE, URINE NEGATIVE (NEGATIVE); KETONES,URINE NEGATIVE (NEGATIVE); LEUKOCYTE ESTERASE,URINE NEGATIVE (NEGATIVE); NITRITE,URINE NEGATIVE (NEGATIVE); PROTEIN,URINE NEGATIVE (NEGATIVE); URINE SPECIFIC GRAVITY 1.003; UROBILINOGEN,URINE NEGATIVE mg/dL (<2.0)
[2018-01-01] MEDS: FAMOTIDINE INJ/PF 20 MG/2 ML SDV IV SCH (21:48)
[2018-01-01] MEDS: NORMAL SALINE 1000 ML 1,000 ML IV PRN (21:48)
[2018-01-02] MEDS ORDERED: INFLUENZA ADLT QUAD (36MOS+) 2017-18 VAC 0.5 ML SYR IM PRN (00:13)
[2018-01-02 06:59] LABS: ABSOLUTE BASOPHILS # (AUTO) 0.1 10^3/uL (0.0-0.2); ABSOLUTE EOSINOPHILS # (AUTO) 0.2 10^3/uL (0.0-0.6); ABSOLUTE LYMPHOCYTES (AUTO) 1.5 10^3/uL (0.5-4.7); ABSOLUTE MONOCYTES (AUTO) 0.8 10^3/uL (0.1-1.4); ABSOLUTE NEUT (AUTO) 6.9 10^3/uL (1.7-8.2); BASOPHILS % (AUTO) 0.6 % (0-2); EOSINOPHILS % (AUTO) 2.4 % (0-6); HEMOGLOBIN 12.1 g/dL (13.5-17.0); LYMPHOCYTES % (AUTO) 16.3 % (13-45); MEAN CORPUSCULAR HEMOGLOBIN 31.4 pg (27.0-33.4); MEAN CORPUSCULAR HGB CONC 34.5 g/dL (32.0-36.0); MEAN CORPUSCULAR VOLUME 91 fl (80-97); PLATELET COUNT 198 10^3/uL (150-450); RED BLOOD COUNT 3.84 10^6/uL (4.35-5.55); SEGMENTED NEUTROPHILS % (AUTO) 72.7 % (42-78); TOTAL CELLS COUNTED % (AUTO) 100 %; WHITE BLOOD COUNT 9.4 10^3/uL (4.0-10.5)
[2018-01-02 07:21] LABS: ALANINE AMINOTRANSFERASE 31 U/L (21-72); ALBUMIN 3.7 g/dL (3.5-5.0); ALKALINE PHOSPHATASE 91 U/L (38-126); ANION GAP 8 (5-19); ASPARTATE AMINO TRANSFERASE 26 U/L (17-59); BILIRUBIN,DIRECT 0.4 mg/dL (0.0-0.4); BILIRUBIN,TOTAL 0.6 mg/dL (0.2-1.3); BLOOD UREA NITROGEN 7 mg/dL (7-20); CARBON DIOXIDE 27 mmol/L (22-30); CHLORIDE 103 mmol/L (98-107); GLUCOSE 150 mg/dL (75-110); POTASSIUM 3.8 mmol/L (3.6-5.0); SODIUM 137.8 mmol/L (137-145); TOTAL PROTEIN 6.8 g/dL (6.3-8.2); TRIGLYCERIDES 87 mg/dL (<150)
[2018-01-02 07:32] LABS: DIRECT LDL 87 mg/dL (<100)
--- NOTE | 2018-01-02 09:29 | EKG REPORT ---
SEVERITY:- ABNORMAL ECG - SINUS RHYTHM LVH WITH SECONDARY REPOLARIZATION ABNORMALITY : Confirmed by: Shana Alberts 02-Jan-2018 09:27:09
[2018-01-02] MEDS ORDERED: HALOPERIDOL LACTATE INJ 5 MG/1 ML VIAL IV ONE (09:45)
[2018-01-02] MEDS ORDERED: ASPIRIN 300 MG SUPP, RECTAL PR SCH (10:00)
[2018-01-02] MEDS ORDERED: ENOXAPARIN SODIUM INJ 40 MG/0.4 ML DISP.SYRIN SUBCUT SCH (10:00)
--- NOTE | 2018-01-02 10:04 | PDOC PROGRESS REPORT ---
Subjective Progress Note for:: 01/02/18 Subjective:: Is agitated today but doing well patient is agitated today but he He passed the swallow evaluation and can take a normal diet he does not have any deficits Is moving all 4 extremities An MRI of the brain is pending at time of this dictation Reason For Visit: ACUTE CVA,DEMENTIA Physical Exam Vital Signs: Temp Pulse Resp BP Pulse Ox 98.1 F 72 16 167/72 H 94 01/02/18 07:36 01/02/18 08:00 01/02/18 08:00 01/02/18 08:00 01/02/18 08:00 Intake & Output 01/01/18 01/02/18 01/03/18 00:59 00:59 00:59 Intake Total 538 Output Total 1450 Balance -912 Weight 94.3 kg 98.1 kg General appearance: PRESENT: no acute distress, other - confused and agitated Head exam: PRESENT: atraumatic, normocephalic Eye exam: PRESENT: conjunctiva pink, EOMI, PERRLA. ABSENT: scleral icterus Neck exam: ABSENT: carotid bruit, JVD, lymphadenopathy, thyromegaly Respiratory exam: PRESENT: clear to auscultation harsh. ABSENT: rales, rhonchi, wheezes Cardiovascular exam: PRESENT: RRR. ABSENT: diastolic murmur, rubs, systolic murmur Pulses: PRESENT: normal dorsalis pedis pul GI/Abdominal exam: PRESENT: normal bowel sounds, soft. ABSENT: distended, guarding, mass, organolmegaly, rebound, tenderness Extremities exam: ABSENT: calf tenderness, joint swelling Musculoskeletal exam: PRESENT: full ROM Neurological exam: PRESENT: awake, CN II-XII grossly intact Skin exam: PRESENT: dry, intact, warm. ABSENT: cyanosis, rash Results Laboratory Results: 01/02/18 06:41 01/02/18 06:41 01/02/18 01/02/18 06:41 06:41 WBC 9.4 RBC 3.84 L Hgb 12.1 L Hct 35.0 L MCV 91 MCH 31.4 MCHC 34.5 RDW 14.0 Plt Count 198 Seg Neutrophils % 72.7 Lymphocytes % 16.3 Monocytes % 8.0 Eosinophils % 2.4 Basophils % 0.6 Absolute Neutrophils 6.9 Absolute Lymphocytes 1.5 Absolute Monocytes 0.8 Absolute Eosinophils 0.2 Absolute Basophils 0.1 Sodium 137.8 Potassium 3.8 Chloride 103 Carbon Dioxide 27 Anion Gap 8 BUN 7 Creatinine 0.70 Est GFR ( Amer) > 60 Est GFR (Non-Af Amer) > 60 Glucose 150 H Calcium 9.0 Magnesium 2.0 Total Bilirubin 0.6 AST 26 ALT 31 Alkaline Phosphatase 91 Total Protein 6.8 Albumin 3.7 Triglycerides 87 Cholesterol 130.10 LDL Cholesterol Direct 87 VLDL Cholesterol 17.0 HDL Cholesterol 33 L 01/02/18 01/02/18 00:13 06:41 Troponin I < 0.012 < 0.012 Impressions: Chest X-Ray 01/01/18 16:24 IMPRESSION: Limited filming. Opacification left lung base Cardiomegaly. Head CT 01/01/18 16:24 IMPRESSION: Possible evolving infarct right cerebellar hemisphere. Atrophy and microvascular ischemia. EVIDENCE OF ACUTE STROKE: YES. RIGHT VERTEBROBASILAR Assessment & Plan - Diagnosis (1) CVA (cerebral vascular accident) Qualifiers: CVA mechanism: unspecified Qualified Code(s): I63.9 - Cerebral infarction, unspecified Is this a current diagnosis for this admission?: Yes Plan: Evolving posterior circulation stroke? We will treat with aspirin suppository MEND exams Permissive hypertension We will obtain MRI brain , MRA of carotids if test can be performed passed speech evaluation (2) Diabetes Qualifiers: Diabetes mellitus complication status: with unspecified complications Diabetes mellitus accountant insulin use: without residential use Is this a current diagnosis for this admission?: Yes Plan: Accu-Chek every 4 hours lispro coverage (3) Hypertension Qualifiers: Hypertension type: essential hypertension Qualified Code(s): I10 - Essential (primary) hypertension Is this a current diagnosis for this admission?: Yes (4) Dementia Qualifiers: Dementia type: unspecified type Is this a current diagnosis for this admission?: Yes (5) Encephalopathy Is this a current diagnosis for this admission?: Yes Plan: Encephalopathy likely sent secondary to the stroke ; we will reevaluate meds - Time Time Spent with patient: 25-34 minutes - Awaiting MRIs to be performed PT evaluation Patient may be transferred back to assisted living today or tomorrow depending on the results and his clinical status
[2018-01-02] MEDS ORDERED: RISPERIDONE 1 MG TABLET PO SCH ×2 (10:15→22:00)
[2018-01-02] MEDS ORDERED: RISPERIDONE 1 MG TABLET PO ONE (10:30)
[2018-01-02] MEDS ORDERED: LORAZEPAM INJ 2 MG/1 ML VIAL IV ONE (10:30)
[2018-01-02] MEDS: FAMOTIDINE INJ/PF 20 MG/2 ML SDV IV SCH ×2 (11:17→22:10)
[2018-01-02] MEDS ORDERED: ASPIRIN 325 MG TABLET, ENT COATED PO ONE (14:00)
--- NOTE | 2018-01-02 15:03 | RADIOLOGY REPORT (SQ) ---
EXAM DESCRIPTION: MRI HEAD WITHOUT COMPLETED DATE/TIME: 01/02/2018 2:07 pm REASON FOR STUDY: CVA COMPARISON: CT dated 01/01/2018. CT and MRI dated 02/03/2017. TECHNIQUE: Multiplanar imaging includes non-contrasted T1, T2, FLAIR, and diffusion with ADC map seq uences. Images stored on PACS. LIMITATIONS: None. FINDINGS: ANATOMY: No anomalies. Normal vascular flow voids. Pituitary fossa normal. CSF SPACES: Atrophy induced prominence of ventricles and CSF spaces. CEREBRUM: High signal intensity lesions scattered throughout the white matter on FLAIR imaging with d istribution suggesting micro-vascular ischemic changes. No evidence of hemorrhage, mass, or extraaxi al fluid collection. POSTERIOR FOSSA: No signal alteration. No hemorrhage. No edema, masses or mass effect. Internal khoi tory canals, cerebello-pontine angles, mastoids normal. DIFFUSION IMAGING: Negative for acute or sub-acute infarction. ORBITS: No masses. Globes normal. PARANASAL SINUSES: No fluid levels. Mucosa normal. OTHER: No other significant finding. IMPRESSION: ATROPHY AND CHRONIC MICRO-VASCULAR ISCHEMIC CHANGES. NO ACUTE FINDINGS. EVIDENCE OF ACUTE STROKE: NO. TECHNICAL DOCUMENTATION: JOB ID: [id number] [employer]- All Rights Reserved
--- NOTE | 2018-01-02 15:06 | RADIOLOGY REPORT (SQ) ---
EXAM DESCRIPTION: MRA HEAD WITHOUT COMPLETED DATE/TIME: 01/02/2018 2:07 pm REASON FOR STUDY: CVA COMPARISON: None. TECHNIQUE: Axial 3-D [id number] acquisition imaging performed through the brain in the area of t he [place] of [place]. Images reformatted using 3-D MIPS. LIMITATIONS: None. FINDINGS: SOURCE IMAGES: No unexpected findings on source images. No large masses. 3-D MIP: No aneurysm. No occlusions. No significant stenosis. OTHER: No other significant finding. IMPRESSION: NORMAL MRA OF THE NATIVE OF [place]. TECHNICAL DOCUMENTATION: JOB ID: [id number] [employer]- All Rights Reserved
--- NOTE | 2018-01-02 15:10 | RADIOLOGY REPORT (SQ) ---
EXAM DESCRIPTION: MRA NECK COMBO COMPLETED DATE/TIME: 01/02/2018 2:07 pm REASON FOR STUDY: cerebellar stroke COMPARISON: None. TECHNIQUE: MRA of the carotid and vertebral arteries was performed using 2D and 3D [id number]-[id number] te chniques without and with the use of gadolinium. 3-D MIPs performed at the workstation and stored on PACS. CONTRAST TYPE AND DOSE: 20 mL Multihance. RENAL FUNCTION: GFR > 60. LIMITATIONS: Due to a unknown technical reasons, postcontrast MRA images could not be acquired. There is significant motion artifact. FINDINGS: GREAT VESSEL ORIGINS: Normal. No stenoses. VERTEBRAL ARTERIES: Patent vessels. No evidence for aneurysm or dissection. RIGHT CAROTID SYSTEM: Patent vessels. No high-grade stenosis. LEFT CAROTID SYSTEM: Patent vessels. No high-grade stenosis. OTHER: No other significant finding. IMPRESSION: STUDY LIMITED DUE TO MOTION ARTIFACT AND SUBOPTIMAL CONTRAST IMAGING. THE MAJOR EXTRACR ANIAL VESSELS ARE PATENT. NO HIGH-GRADE STENOSIS PRESENT. COMMENT: Quality ID #[id number]: Measurements of distal internal carotid diameter were used as the denomina tor for stenosis measurement. TECHNICAL DOCUMENTATION: JOB ID: [id number] [employer]- All Rights Reserved
[2018-01-02] MEDS: NORMAL SALINE 1000 ML 1,000 ML IV PRN (16:29)
--- NOTE | 2018-01-02 18:09 | PDOC TRANSFER SUMMARY ---
General - Admit/Disc Date/PCP Admission Date/Primary Care Provider: 01/01/18 18:07 Discharge Date: 01/03/18 - Discharge Diagnosis (1) Diabetes Is this a current diagnosis for this admission?: Yes (2) Hypertension Is this a current diagnosis for this admission?: Yes (3) Dementia Is this a current diagnosis for this admission?: Yes (4) Encephalopathy Is this a current diagnosis for this admission?: Yes (5) TIA (transient ischemic attack) Is this a current diagnosis for this admission?: Yes - Additional Information Resuscitation Status: Full Code Home Medications: Acetaminophen [Tylenol Extra Strength 500 mg Tablet] 500 mg PO Q4HP PRN Amlodipine Besylate [Norvasc 5 mg Tablet] 5 mg PO DAILY 01/01/18 Aspirin [Aspirin EC] 81 mg PO DAILY 01/01/18 Atorvastatin Calcium [Lipitor 20 mg Tablet] 20 mg PO QHS 01/01/18 Bupropion HCl [Wellbutrin 75 mg Tablet] 75 mg PO DAILY 01/01/18 Cholecalciferol (Vitamin D3) [Vitamin D3 2000 unit Tablet] 2,000 unit PO DAILY 01/01/18 Clopidogrel Bisulfate [Plavix 75 mg Tablet] 75 mg PO DAILY 01/01/18 Cyanocobalamin (Vitamin B-12) [Vitamin B-12] 1,000 mcg PO DAILY 01/01/18 Donepezil HCl [Aricept] 10 mg PO QHS 01/01/18 Fluoxetine HCl [Prozac 20 mg Capsule] 20 mg PO DAILY 01/01/18 Glipizide [Glucotrol 10 mg Tablet] 10 mg PO DAILY 01/01/18 Insulin Aspart [Novolog Insulin (Aspart) 100 unit/mL] See Protocol SQ QID Loperamide HCl [Loperamide] 2 mg PO DAILYP PRN 01/01/18 Lorazepam [Ativan 0.5 mg Tablet] 0.5 mg PO DAILY 01/01/18 Losartan Potassium [Cozaar 100 mg Tablet] 100 mg PO DAILY 01/01/18 Magnesium Hydroxide [Milk of Magnesia 30 ml Udcup] 30 ml PO HSP PRN 01/01/18 Meclizine HCl [Antivert 25 mg Tablet] 25 mg PO Q8HP PRN 01/01/18 Metoprolol Tartrate [Lopressor 25 mg Tablet] 25 mg PO Q12 01/01/18 Temazepam [Restoril 15 mg Capsule] 15 mg PO QHS 01/01/18 History of Present Illness Admission Date/PCP: 01/01/18 18:07 Patient complains of: confusion History of Present Illness: RASHAAD EDOUARD is a 72 year old male with a past history of non-insulin- dependent diabetes, dementia, coronary artery disease, TIAs Who resides in a memory care unit. He was sent to the ED for evaluation of new onset slurred speech. Further history was impossible to obtain as the patient is extremely confused and not oriented Upon evaluation in the ED CT of the brain was suggestive of an evolving right cerebellar hemisphere stroke. Patient was found not to be a candidate for TPA He was referred to hospitalist for admission. Hospital Course Hospital Course: (1) TIA Patient was admitted with new onset confusion and agitation initial CT of the brain was suggestive of a cerebral stroke Patient was monitored He had serial troponins that were all normal Neuro exams were performed; his mentation improved He was very confused at times but can move all 4 extremities He passed a swallow evaluation Further tests included MRI MRA of the brain; MRA of the neck and they were all normal No stroke was visualized on MRI studies Patient likely had a TIA We will discharge him on Ecotrin p.o. and add Lipitor to his medications (2) Diabetes Was fairly well controlled with blood sugars of 120-150 (3) Hypertension Was controlled (4) Dementia Patient was very confused at times We added small doses of Risperdal during his stay We will discharge him with a dose of risperidal at night (5) Encephalopathy Likely secondary to the TIA Physical Exam Vital Signs: Temp Pulse Resp BP Pulse Ox 98.1 F 93 16 167/72 H 94 01/02/18 07:36 01/02/18 14:00 01/02/18 08:00 01/02/18 08:00 01/02/18 08:00 Intake & Output 01/01/18 01/02/18 01/03/18 00:59 00:59 00:59 Intake Total 1365 Output Total 1450 Balance -85 Weight 94.3 kg 98.1 kg General appearance: PRESENT: no acute distress, other - confused and agitated Head exam: PRESENT: atraumatic, normocephalic Eye exam: PRESENT: conjunctiva pink, EOMI, PERRLA. ABSENT: scleral icterus Neck exam: ABSENT: carotid bruit, JVD, lymphadenopathy, thyromegaly Respiratory exam: PRESENT: clear to auscultation harsh. ABSENT: rales, rhonchi, wheezes Cardiovascular exam: PRESENT: RRR. ABSENT: diastolic murmur, rubs, systolic murmur Pulses: PRESENT: normal dorsalis pedis pul GI/Abdominal exam: PRESENT: normal bowel sounds, soft. ABSENT: distended, guarding, mass, organolmegaly, rebound, tenderness Extremities exam: ABSENT: calf tenderness, joint swelling Musculoskeletal exam: PRESENT: full ROM Neurological exam: PRESENT: awake, CN II-XII grossly intact Skin exam: PRESENT: dry, intact, warm. ABSENT: cyanosis, rash Results Laboratory Results: 01/02/18 06:41 01/02/18 06:41 01/02/18 01/02/18 06:41 06:41 WBC 9.4 RBC 3.84 L Hgb 12.1 L Hct 35.0 L MCV 91 MCH 31.4 MCHC 34.5 RDW 14.0 Plt Count 198 Seg Neutrophils % 72.7 Lymphocytes % 16.3 Monocytes % 8.0 Eosinophils % 2.4 Basophils % 0.6 Absolute Neutrophils 6.9 Absolute Lymphocytes 1.5 Absolute Monocytes 0.8 Absolute Eosinophils 0.2 Absolute Basophils 0.1 Sodium 137.8 Potassium 3.8 Chloride 103 Carbon Dioxide 27 Anion Gap 8 BUN 7 Creatinine 0.70 Est GFR ( Amer) > 60 Est GFR (Non-Af Amer) > 60 Glucose 150 H Calcium 9.0 Magnesium 2.0 Total Bilirubin 0.6 AST 26 ALT 31 Alkaline Phosphatase 91 Total Protein 6.8 Albumin 3.7 Triglycerides 87 Cholesterol 130.10 LDL Cholesterol Direct 87 VLDL Cholesterol 17.0 HDL Cholesterol 33 L 01/02/18 01/02/18 01/02/18 00:13 06:41 14:17 Troponin I < 0.012 < 0.012 < 0.012 Impressions: Chest X-Ray 01/01/18 16:24 IMPRESSION: Limited filming. Opacification left lung base Cardiomegaly. Head CT 01/01/18 16:24 IMPRESSION: Possible evolving infarct right cerebellar hemisphere. Atrophy and microvascular ischemia. EVIDENCE OF ACUTE STROKE: YES. RIGHT VERTEBROBASILAR Brain MRI with MRA 01/02/18 00:00 IMPRESSION: NORMAL MRA OF THE [place]. Neck MRA 02/13/18 00:00 IMPRESSION: STUDY LIMITED DUE TO MOTION ARTIFACT AND SUBOPTIMAL CONTRAST IMAGING. THE MAJOR EXTRACRANIAL VESSELS ARE PATENT. NO HIGH-GRADE STENOSIS PRESENT. Head MRI 01/02/18 10:11 IMPRESSION: ATROPHY AND CHRONIC MICRO-VASCULAR ISCHEMIC CHANGES. NO ACUTE FINDINGS. EVIDENCE OF ACUTE STROKE: NO. Transfer Plan - Disposition Transfer Plan: Discharge in a.m. back to the assisted living - Time Spent with Patient Time spent with patient: Greater than 30 Minutes
[2018-01-02] MEDS ORDERED: METOPROLOL TARTRATE 25 MG TABLET PO SCH (22:00)
[2018-01-02] MEDS ORDERED: (PENDING PHARMACY ID) (Donepezil Hcl [Aricept] 10 MG) PO SCH (22:00)
[2018-01-02] MEDS ORDERED: ATORVASTATIN CALCIUM 20 MG TABLET PO SCH (22:00)
[2018-01-02] MEDS ORDERED: DONEPEZIL HCL 5 MG TABLET PO SCH (22:00)
[2018-01-02] MEDS ORDERED: TEMAZEPAM 15 MG CAPSULE PO SCH (22:00)
[2018-01-03 05:15] VITALS: BP 115/64
[2018-01-03] MEDS: NORMAL SALINE 1000 ML 1,000 ML IV PRN (05:20)
[2018-01-03] MEDS ORDERED: CHOLECALCIFEROL (D3) 1,000 UNIT TABLET PO SCH (10:00)
[2018-01-03] MEDS ORDERED: CLOPIDOGREL BISULFATE 75 MG TABLET PO SCH (10:00)
[2018-01-03] MEDS ORDERED: FLUOXETINE HCL 20 MG CAPSULE PO SCH (10:00)
[2018-01-03] MEDS ORDERED: LORAZEPAM 0.5 MG TABLET PO SCH (10:00)
[2018-01-03] MEDS ORDERED: ASPIRIN 325 MG TABLET, ENT COATED PO SCH (10:00)
[2018-01-03] MEDS ORDERED: BUPROPION HCL 75 MG TABLET PO SCH (10:00)
[2018-01-03] MEDS ORDERED: (PENDING PHARMACY ID) (Cholecalciferol (Vitamin D3) [Vitamin D3 2000 Unit Tablet] 2,000 UN PO SCH (10:00)
[2018-01-03] MEDS ORDERED: LOSARTAN POTASSIUM 50 MG TABLET PO SCH (10:00)
[2018-01-03] MEDS ORDERED: CYANOCOBALAMIN (VITAMIN B-12) 1,000 MCG TABLET PO SCH (10:00)
== END 2018-01-03 10:05 | disposition short-term general hospital (02) | DRG 69 ==
LOC: ER 16:17 → EH 18:07 → 3N 20:46
PROVIDERS: ADMIT Emergency Medicine; ATTEND Emergency Medicine
DX: G45.9 Transient cerebral ischemic attack, unspecified (principal); G93.40 Encephalopathy, unspecified; R47.01 Aphasia; I10 Essential (primary) hypertension; E78.5 Hyperlipidemia, unspecified; R47.81 Slurred speech; F03.90 Unspecified dementia, unspecified severity, without behavioral disturbance, psychotic disturbance, mood disturbance, and anxiety; F41.9 Anxiety disorder, unspecified; I25.10 Atherosclerotic heart disease of native coronary artery without angina pectoris; I25.2 Old myocardial infarction; E11.9 Type 2 diabetes mellitus without complications; M19.90 Unspecified osteoarthritis, unspecified site; F32.9 Major depressive disorder, single episode, unspecified; Z95.5 Presence of coronary angioplasty implant and graft; R47.1 Dysarthria and anarthria
CPT/HCPCS: 36415; 70450; 70544; 70549; 70551; 71045; 80053; 80061; 81001; 82550; 82553; 83735; 84484; 85025; 85610; 85730; 93005; 93010; 96374; 99291; A9576; G8978-GP; G8979-GP; G8980-GP; G8987-GO; G8988-GO; G8989-GO; G8996-GN; G8997-GN; G8998-GN; J1650; J2060; J3490; J7030; S0028

== ENCOUNTER 2018-01-04 20:25 | Emergency (ER) | payer MEDICARE, MEDICAID ==
--- NOTE | 2018-01-04 20:57 | ER Document Report ---
ED General - General Chief Complaint: General Weakness Stated Complaint: STROKE LIKE SYMPTOMS Time Seen by Provider: 01/04/18 20:36 Cannot obtain history due to: Dementia Notes: Patient is a 72-year-old male just discharged from this hospital less than 2 days ago for concern of strokelike symptoms although had a negative MRI/MRA of his head and neck who presents by EMS with facility concerns of slurred speech. Patient is demented at baseline although is able to relate to me his hospitalization and the fact that there was "nothing wrong with me" and is asking to go back to the facility. He is able to give the entire address of the facility but does not know the month or the year. He denies any chest pain , headache, neck pain, shortness of breath, weakness, numbness, and states that his speech "feels like normal". TRAVEL OUTSIDE OF THE [place] IN LAST 30 DAYS: No - Related Data Allergies/Adverse Reactions: No Known Allergies Allergy (Verified 02/03/17 15:44) Past Medical History - General Information source: Patient, [facility] Records Cannot obtain history due to: Dementia - Social History Smoking Status: Never Smoker Frequency of alcohol use: None Drug Abuse: None Lives with: Detention Family History: Reviewed & Not Pertinent - Past Medical History Cardiac Medical History: Reports: Hx Coronary Artery Disease, Hx Heart Attack, Hx Hypercholesterolemia, Hx Hypertension Pulmonary Medical History: Reports: Hx Pneumonia Denies: Hx Tuberculosis Endocrine Medical History: Reports: Hx Diabetes Mellitus Type 2 Renal/ Medical History: Denies: Hx Peritoneal Dialysis Musculoskeltal Medical History: Reports Hx Arthritis Psychiatric Medical History: Reports: Hx Anxiety, Hx Dementia, Hx Depression Traumatic Medical History: Reports: Hx Fractures - left arm childhood Past Surgical History: Reports: Hx Cardiac Catheterization - Stent x3, Hx Cholecystectomy, Hx Coronary Stent. Denies: Hx Pacemaker - Immunizations Immunizations up to date: Yes Hx Diphtheria, Pertussis, Tetanus Vaccination: No Hx Pneumococcal Vaccination: 09/20/10 Review of Systems - Review of Systems Notes: Constitutional: Negative for fever. HENT: Negative for sore throat. Eyes: Negative for visual changes. Cardiovascular: Negative for chest pain. Respiratory: Negative for shortness of breath. Gastrointestinal: Negative for abdominal pain, vomiting or diarrhea. Genitourinary: Negative for dysuria. Musculoskeletal: Negative for back pain. Skin: Negative for rash. Neurological: Negative for headaches, weakness or numbness. 10 point ROS negative except as marked above and in HPI. Physical Exam - Vital signs Vitals: Resp Pulse Ox 20 98 01/04/18 20:36 01/04/18 20:36 Interpretation: Normal Notes: PHYSICAL EXAMINATION: GENERAL: Well-appearing, well-nourished and in no acute distress. HEAD: Atraumatic, normocephalic. EYES: Pupils equal round and reactive to light, extraocular movements intact, sclera anicteric, conjunctiva are normal. ENT: nares patent, oropharynx clear without exudates. Moist mucous membranes. NECK: Normal range of motion, supple without lymphadenopathy LUNGS: Breath sounds clear to auscultation bilaterally and equal. No wheezes rales or rhonchi. HEART: Regular rate and rhythm without murmurs ABDOMEN: Soft, nontender, normoactive bowel sounds. No guarding, no rebound. No masses appreciated. EXTREMITIES: Normal range of motion, no pitting or edema. No cyanosis. NEUROLOGICAL: Face symmetric. Tongue protrudes midline. Extraocular motions intact. Pupils are 2 mm and equally reactive. Normal speech. 5 out of 5 strength in both the distal and proximal upper and lower extremities bilaterally. Sensation is grossly intact throughout. Finger to nose testing normal. Pronator drift normal. PSYCH: Alert, oriented to person and place SKIN: Warm, Dry, normal turgor, no rashes or lesions noted. Course - Re-evaluation Re-evalutation: 01/04/18 20:55 Patient presents with reported concerns of "slurred speech" but patient has no evidence of stroke on exam. NIH stroke scale is 0 at time of presentation and was also 0 for EMS. The patient just had an MRI and MRA of his neck less than 48 hours ago for similar presentation and that did not demonstrate any evidence of a stroke or any carotid occlusions that would make him higher risk for this. The patient is very pleasant on contact but demented. He is speaking at his baseline, multiple staff members who have assessed him during his most recent visit states that this is exactly how he was speaking before. There is no indication for labs or imaging as patient himself denies any complaints and states that the staff "needs to come over here and get me and take me back home ". Vitals otherwise within normal limits. I do not see any indication for diagnostic workup at this time as the patient does not demonstrate any symptoms to suggest an acute stroke at this time. He also denies any additional complaints that would warrant further workup. At this time will discharge with return precautions and follow-up recommendations. Verbal discharge instructions given a the bedside and opportunity for questions given. Patient is in agreement with this plan and has verbalized understanding of return precautions and the need for primary care follow-up in the next 24-72 hours. - Vital Signs Vital signs: Temp Pulse Resp BP Pulse Ox 98.3 F 70 16 146/90 H 96 01/04/18 22:44 01/04/18 22:44 01/04/18 22:44 01/04/18 22:44 01/04/18 22:44 Discharge - Discharge Clinical Impression: Dementia Qualifiers: Dementia type: unspecified type Dementia behavioral disturbance: with behavioral disturbance Qualified Code(s): F03.91 - Unspecified dementia with behavioral disturbance Condition: Stable Disposition: HOME, SELF-CARE Additional Instructions: Please return to the emergency room immediately if you experience any concerning symptoms including high fevers, severe headache, chest pain, difficulty breathing, abdominal pain, slurred speech, numbness or weakness in your arms or legs, or any other symptom that concerns you.
[2018-01-04 23:59] VITALS: BP 146/90
== END 2018-01-04 22:43 | disposition home or self-care (01) ==
LOC: ER 20:25
DX: F03.91 Unspecified dementia, unspecified severity, with behavioral disturbance (principal); I25.10 Atherosclerotic heart disease of native coronary artery without angina pectoris; I25.2 Old myocardial infarction; I10 Essential (primary) hypertension; E11.9 Type 2 diabetes mellitus without complications; Z95.5 Presence of coronary angioplasty implant and graft
CPT/HCPCS: 99285

== ENCOUNTER 2018-01-06 01:03 | Emergency (ER) | payer MEDICARE, MEDICAID ==
[2018-01-06 01:48] LABS: APPEARANCE,URINE CLEAR; BILIRUBIN,URINE NEGATIVE (NEGATIVE); COLOR,URINE COLORLESS; GLUCOSE, URINE NEGATIVE (NEGATIVE); KETONES,URINE NEGATIVE (NEGATIVE); LEUKOCYTE ESTERASE,URINE NEGATIVE (NEGATIVE); NITRITE,URINE NEGATIVE (NEGATIVE); PROTEIN,URINE NEGATIVE (NEGATIVE); URINE SPECIFIC GRAVITY 1.001; UROBILINOGEN,URINE NEGATIVE mg/dL (<2.0)
[2018-01-06] MEDS ORDERED: ZIPRASIDONE MESYLATE INJ/PF 20 MG SDV IM ONE (02:34)
--- NOTE | 2018-01-06 02:35 | ER Document Report ---
ED General - General Chief Complaint: Other Stated Complaint: EVALUATION Time Seen by Provider: 01/06/18 01:14 Notes: Patient is a 72-year-old male who presents with complaints of agitation at the memory care unit at the [facility]. Patient states currently has had increased agitation presents he was admitted for possible stroke and TIA. His MRIs at that time was negative. That occurred 3 weeks ago. Patient himself says that he is supposed to have someone at the front attendant when outside his room at all times. He says when he goes out there there is no one there and therefore he starts pounding on the desk asking for help. Patient denies any recent fevers or infections. He denies any pain. He has no other complaints at this time. A news gathering technician from the facility named Irving benoit arrive and expressed concern that the patient has been continuously agitated since his admission 3 weeks ago. He says he has had no fevers or any signs of infection at the [facility]. He is concerned they may have had a stroke. I did explain to news gathering technician that the patient did have a full workup for stroke including MRI and MRA which did not show evidence of stroke. TRAVEL OUTSIDE OF THE [place] IN LAST 30 DAYS: No - Related Data Allergies/Adverse Reactions: No Known Allergies Allergy (Verified 02/03/17 15:44) Past Medical History - Social History Smoking Status: Never Smoker Frequency of alcohol use: None Drug Abuse: None Family History: Reviewed & Not Pertinent - Past Medical History Cardiac Medical History: Reports: Hx Coronary Artery Disease, Hx Heart Attack, Hx Hypercholesterolemia, Hx Hypertension Pulmonary Medical History: Reports: Hx Pneumonia Denies: Hx Tuberculosis Endocrine Medical History: Reports: Hx Diabetes Mellitus Type 2 Renal/ Medical History: Denies: Hx Peritoneal Dialysis Musculoskeltal Medical History: Reports Hx Arthritis Psychiatric Medical History: Reports: Hx Anxiety, Hx Dementia, Hx Depression Traumatic Medical History: Reports: Hx Fractures - left arm childhood Past Surgical History: Reports: Hx Cardiac Catheterization - Stent x3, Hx Cholecystectomy, Hx Coronary Stent. Denies: Hx Pacemaker - Immunizations Immunizations up to date: Yes Hx Diphtheria, Pertussis, Tetanus Vaccination: No Hx Pneumococcal Vaccination: 09/20/10 Review of Systems - Review of Systems Notes: My Normal Review Basic REVIEW OF SYSTEMS: CONSTITUTIONAL : Denies fever, chills, or sweats. Denies recent illness. EENT: Denies eye, ear, throat, or mouth pain or symptoms. Denies nasal or sinus congestion. CARDIOVASCULAR: Denies chest pain. RESPIRATORY: Denies cough, cold, or chest congestion. Denies shortness of breath, difficulty breathing, or wheezing. GASTROINTESTINAL: Denies abdominal pain. Denies nausea, vomiting, or diarrhea. Denies constipation. Last BM: MUSCULOSKELETAL: Denies neck or back pain or joint pain or swelling. SKIN: Denies rash or skin lesions. NEUROLOGICAL: Denies altered mental status or loss of consciousness. Denies headache. Denies weakness or paralysis or loss of use of either side. Denies problems with gait or speech. Denies sensory or motor loss. PSYCHIATRIC: Agitation.. ALL OTHER SYSTEMS REVIEWED AND NEGATIVE. Physical Exam - Vital signs Vitals: Temp Pulse BP Pulse Ox 98.1 F 78 149/78 H 97 01/06/18 01:09 01/06/18 01:09 01/06/18 01:09 01/06/18 01:09 - Notes Notes: General Appearance: She answers all questions appropriately. When he leaves the room he consciously is asking for constant attention. He is always asking for something to drink and always asks for someone to come in the room and answers questions. He asks about the same questions over and over again consistent with dementia. Vitals: reviewed, See vital signs table. Head: no swelling or tenderness to the head Eyes: PERRL, EOMI, Conjuctiva clear Mouth: No decreasd moisture Lungs: No wheezing, No rales, No rhonci, No accessory muscle use, good air exchange bilaterally. Heart: Normal rate, Regular rythm, No murmur, no rub Abdomen: Normal BS, soft, No rigidity, No abdominal tenderness, No guarding, no rebound, no abdominal masses, no organomegaly Extremities: strength 5/5 in all extremities, good pulses in all extremities, no swelling or tenderness in the extremities, no edema. Skin: warm, dry, appropriate color, no rash Neuro: speech clear, oriented x 3, normal affect, responds appropriately to questions. Renal nerves II through XII are intact. Distal sensation intact. Patient moves all extremities without difficulty. Normal gait. Course - Re-evaluation Re-evalutation: 01/07/18 06:31 I suspect the patient has worsening dementia. I spoke with the news gathering technician from [facility] informed him that I do not think this is stroke related being that he had an MRI 48 hours after the symptoms started become known. MRI showed no evidence of stroke. I feel that he needs medication treatment for agitation most likely related to his dementia. I informed the news gathering technician will start him on Geodon but the patient is be closely evaluated again on Monday by the medical provider at the facility to determine whether not this medication is helping and whether not to continue or adjust it. Production Foreman is agreeable plan and patient be discharged home with Geodon. Dictation of this chart was performed using voice recognition software; therefore, there may be some unintended grammatical errors. - Vital Signs Vital signs: Temp Pulse Resp BP Pulse Ox 98.1 F 77 16 144/85 H 97 01/06/18 03:31 01/06/18 03:44 01/06/18 03:31 01/06/18 03:44 01/06/18 03:44 - Laboratory Laboratory results interpreted by me: 01/06/18 01:30 Urine Blood SMALL H - EKG Interpretation by Me Additional EKG results interpreted by me: 01/06/18 02:35 EKG is reviewed and interpreted by me. EKG shows normal sinus rhythm with a rate of [address] segment elevation. Mild ST segment depression in the lateral precordial leads. No ischemic T-wave inversions. [place] interval, QRS duration, QTc intervals are within normal range. No changes comparison to his old EKG from January 01, 2018. 01/06/18 02:35 Discharge - Discharge Clinical Impression: Agitation Dementia Qualifiers: Dementia type: unspecified type Dementia behavioral disturbance: with behavioral disturbance Qualified Code(s): F03.91 - Unspecified dementia with behavioral disturbance Condition: Good Disposition: HOME, SELF-CARE Additional Instructions: Please have Mr. Leong reevaluated by his provider on Monday to help determine whether or not the Geodon is working and whether to continue it. please return to the ER if Mr. Leong has any rash, over sedation, or if you have concerns he is having an adverse reaction to the Geodon. Prescriptions: Ziprasidone HCl [Geodon 20 Mg Capsule] 20 mg PO BID #14 capsule
[2018-01-06 04:13] VITALS: BP 144/85
--- NOTE | 2018-01-06 09:51 | EKG REPORT ---
SEVERITY:- ABNORMAL ECG - SINUS RHYTHM LVH WITH SECONDARY REPOLARIZATION ABNORMALITY VS ISCHEMIA : Confirmed by: Shana Alberts 06-Jan-2018 09:50:22
== END 2018-01-06 04:12 | disposition home or self-care (01) ==
LOC: ER 01:03
DX: R45.1 Restlessness and agitation (principal); F03.91 Unspecified dementia, unspecified severity, with behavioral disturbance; I25.10 Atherosclerotic heart disease of native coronary artery without angina pectoris; E78.00 Pure hypercholesterolemia, unspecified; I10 Essential (primary) hypertension; E11.9 Type 2 diabetes mellitus without complications; I25.2 Old myocardial infarction; Z90.49 Acquired absence of other specified parts of digestive tract
CPT/HCPCS: 93005; 99285; 96372; 81001; 93010; J3486

== ENCOUNTER 2018-05-04 20:48 | Emergency (ER) | payer MEDICARE, MEDICAID ==
[2018-05-04] MEDS ORDERED: HALOPERIDOL LACTATE INJ 5 MG/1 ML VIAL IM ONE (21:35)
[2018-05-04] MEDS ORDERED: HALOPERIDOL LACTATE INJ 5 MG/1 ML VIAL ONE (21:36)
[2018-05-04 22:28] LABS: ABSOLUTE BASOPHILS # (AUTO) 0.1 10^3/uL (0.0-0.2); ABSOLUTE EOSINOPHILS # (AUTO) 0.2 10^3/uL (0.0-0.6); ABSOLUTE LYMPHOCYTES (AUTO) 2.1 10^3/uL (0.5-4.7); ABSOLUTE MONOCYTES (AUTO) 0.8 10^3/uL (0.1-1.4); ABSOLUTE NEUT (AUTO) 6.9 10^3/uL (1.7-8.2); BASOPHILS % (AUTO) 0.6 % (0-2); EOSINOPHILS % (AUTO) 2.3 % (0-6); HEMOGLOBIN 13.2 g/dL (13.5-17.0); LYMPHOCYTES % (AUTO) 21.2 % (13-45); MEAN CORPUSCULAR HGB CONC 34.8 g/dL (32.0-36.0); MEAN CORPUSCULAR VOLUME 92 fl (80-97); MONOCYTES % (AUTO) 7.8 % (3-13); PLATELET COUNT 237 10^3/uL (150-450); RED BLOOD COUNT 4.13 10^6/uL (4.35-5.55); RED CELL DISTRIBUTION WIDTH 13.8 % (11.5-14.0); SEGMENTED NEUTROPHILS % (AUTO) 68.1 % (42-78); TOTAL CELLS COUNTED % (AUTO) 100 %; WHITE BLOOD COUNT 10.1 10^3/uL (4.0-10.5)
[2018-05-04 22:33] LABS: ALANINE AMINOTRANSFERASE 32 U/L (21-72); ALBUMIN 4.1 g/dL (3.5-5.0); ALKALINE PHOSPHATASE 87 U/L (38-126); ANION GAP 12 (5-19); ASPARTATE AMINO TRANSFERASE 24 U/L (17-59); BILIRUBIN,DIRECT 0.3 mg/dL (0.0-0.4); BILIRUBIN,TOTAL 0.4 mg/dL (0.2-1.3); BLOOD UREA NITROGEN 7 mg/dL (7-20); CALCIUM 9.4 mg/dL (8.4-10.2); CARBON DIOXIDE 30 mmol/L (22-30); CHLORIDE 97 mmol/L (98-107); GLUCOSE 238 mg/dL (75-110); POTASSIUM 3.7 mmol/L (3.6-5.0); SODIUM 138.6 mmol/L (137-145); TOTAL PROTEIN 7.3 g/dL (6.3-8.2)
--- NOTE | 2018-05-04 23:01 | ER Document Report ---
ED General - General Chief Complaint: Probable Seizure Stated Complaint: POSSIBLE SEIZURE Time Seen by Provider: 05/04/18 21:34 Cannot obtain history due to: Dementia Notes: The patient is a 72 year old male who presents from [facility] with concerns of a possible seizure. The patient apparently had an event at the nursing facility that the staff was uncertain how to describe. He was however apparently talking during this episode. Although the patient apparently has a history of seizures during his most recent hospitalization this was not listed as a known problem and he is not on any antiepileptic medications. The patient himself is profoundly demented and unable to provide any form of meaningful history. TRAVEL OUTSIDE OF THE [place] IN LAST 30 DAYS: No - Related Data Allergies/Adverse Reactions: No Known Allergies Allergy (Verified 02/03/17 15:44) Past Medical History - General Information source: Relative, Transfer Record, Emergency Med Personnel - Social History Smoking Status: Never Smoker Frequency of alcohol use: None Drug Abuse: None Lives with: Correction Family History: Reviewed & Not Pertinent Patient has suicidal ideation: No Patient has homicidal ideation: No - Past Medical History Cardiac Medical History: Reports: Hx Coronary Artery Disease, Hx Heart Attack, Hx Hypercholesterolemia, Hx Hypertension Pulmonary Medical History: Reports: Hx Pneumonia Denies: Hx Tuberculosis Neurological Medical History: Reports: Hx Seizures - "several" per pt's son Endocrine Medical History: Reports: Hx Diabetes Mellitus Type 2 Renal/ Medical History: Denies: Hx Peritoneal Dialysis Musculoskeltal Medical History: Reports Hx Arthritis Psychiatric Medical History: Reports: Hx Anxiety, Hx Dementia, Hx Depression Traumatic Medical History: Reports: Hx Fractures - left arm childhood Past Surgical History: Reports: Hx Cardiac Catheterization - Stent x3, Hx Cholecystectomy, Hx Coronary Stent. Denies: Hx Pacemaker - Immunizations Immunizations up to date: Yes Hx Diphtheria, Pertussis, Tetanus Vaccination: No Hx Pneumococcal Vaccination: 09/20/10 Review of Systems - Review of Systems Notes: Constitutional: Negative for fever. HENT: Negative for sore throat. Eyes: Negative for visual changes. Cardiovascular: Negative for chest pain. Respiratory: Negative for shortness of breath. Gastrointestinal: Negative for abdominal pain, vomiting or diarrhea. Genitourinary: Negative for dysuria. Musculoskeletal: Negative for back pain. Skin: Negative for rash. Neurological: Negative for headaches, weakness or numbness. 10 point ROS negative except as marked above and in HPI. Physical Exam - Vital signs Vitals: Temp Pulse Resp BP Pulse Ox 97.9 F 85 18 126/70 H 97 05/05/18 02:29 05/05/18 02:29 05/05/18 02:29 05/05/18 02:29 05/05/18 02:29 Interpretation: Normal Notes: PHYSICAL EXAMINATION: GENERAL: Well-appearing, well-nourished and in no acute distress. HEAD: Atraumatic, normocephalic. EYES: Pupils equal round and reactive to light, extraocular movements intact, sclera anicteric, conjunctiva are normal. ENT: nares patent, oropharynx clear without exudates. Moist mucous membranes. NECK: Normal range of motion, supple without lymphadenopathy LUNGS: Breath sounds clear to auscultation bilaterally and equal. No wheezes rales or rhonchi. HEART: Regular rate and rhythm without murmurs ABDOMEN: Soft, nontender, normoactive bowel sounds. No guarding, no rebound. No masses appreciated. EXTREMITIES: Normal range of motion, no pitting or edema. No cyanosis. NEUROLOGICAL: No focal neurological deficits. Moves all extremities spontaneously and on command. PSYCH: Alert, oriented only to person SKIN: Warm, Dry, normal turgor, no rashes or lesions noted. Course - Re-evaluation Re-evalutation: 05/04/18 23:00 Presentation of progressively worsening dementia with associated agitation. Have had a long conversation with the patient's son at the bedside who initially seemed unaware that the patient was actually formally diagnosed with dementia and currently residing in a memory care unit at [facility]. We have reviewed that the patient's behaviors here are not at all consistent with seizures and he is not on any antiepileptic drugs. The patient is noted to be on lorazepam which would be ill advised 72-year-old male with dementia and I have encouraged the patient's son discussed with the nursing facility about discontinuation of this medication. He is also not on any antipsychotics which would be more appropriate for his agitated behaviors. Review of previous hospitalizations and visits to the emergency department reveal a pattern of similar behaviors. Will obtain basic laboratories to ensure that there is no obvious alternative etiology of today's presentation and plan for discharge home. Patient has had improvement of his behaviors after receiving 3 mg of haloperidol. 05/04/18 23:50 Labs unremarkable. Patient's continued behaviors are very consistent with dementia with associated behavioral disruption. He will be discharged back to [facility]. 05/04/18 23:59 The patient has had a witnessed generalized tonic-clonic seizure lasting for 45 seconds that spontaneously terminated. This was markedly different than the patient's previous behaviors here in the emergency department and different from what was described at [facility]. This does however corroborate that the patient does have a history of seizures. The patient is not however on any antiepileptic medications at the nursing facility. He has been loaded with levetiracetam and will be prescribed this to be started at the facility. I have also made recommendations that he needs to follow-up with neurology and have called and informed the family of this diagnosis. - Vital Signs Vital signs: Temp Pulse Resp BP Pulse Ox 97.9 F 85 18 126/70 H 97 05/05/18 02:29 05/05/18 02:29 05/05/18 02:29 05/05/18 02:29 05/05/18 02:29 - Laboratory Result Diagrams: 05/04/18 21:14 05/04/18 21:14 Laboratory results interpreted by me: 05/04/18 05/04/18 05/04/18 21:05 21:14 21:14 RBC 4.13 L Hgb 13.2 L Chloride 97 L Glucose 238 H Urine Glucose (UA) >=500 H Discharge - Discharge Clinical Impression: Agitation, Seizure Dementia Qualifiers: Dementia type: Alzheimer's disease Alzheimer's disease onset: unspecified onset Dementia behavioral disturbance: with behavioral disturbance Qualified Code(s): G30.9 - Alzheimer's disease, unspecified Condition: Good Disposition: HOME-SNF (ED ONLY) Additional Instructions: The patient's behaviors are related to his advancing dementia. I would strongly advise that you discontinue administration of lorazepam to this patient as this is contraindicated in patients with known history of dementia. An alternative consideration could be to start something such as risperidone, Geodon, or haloperidol which have a much better evidence basis for behavioral control in patients with dementia. Laboratories today are also normal. The patient does also have true seizures. I would discontinue bupropion as this can be a cause of seizures even at therapeutic doses. He has been started on Keppra but does need a complete evaluation by a neurologist including an EEG. He had an MRI within the last several months which was normal. The patient should return to the emergency department if he has recurrent seizures, has persistent vomiting, fever, or any other symptoms that are of concern to you. Prescriptions: Levetiracetam [Keppra 500 mg Tablet] 500 mg PO Q12 #60 tablet
[2018-05-04] MEDS ORDERED: RISPERIDONE 1 MG TABLET PO ONE (23:04)
[2018-05-04 23:19] LABS: APPEARANCE,URINE CLEAR; BILIRUBIN,URINE NEGATIVE (NEGATIVE); COLOR,URINE STRAW; GLUCOSE, URINE >=500 mg/dL (NEGATIVE); KETONES,URINE NEGATIVE (NEGATIVE); LEUKOCYTE ESTERASE,URINE NEGATIVE (NEGATIVE); NITRITE,URINE NEGATIVE (NEGATIVE); PROTEIN,URINE NEGATIVE (NEGATIVE); URINE SPECIFIC GRAVITY 1.007; UROBILINOGEN,URINE NEGATIVE mg/dL (<2.0)
[2018-05-04] MEDS ORDERED: LEVETIRACETAM 1500 MG/NACL-ISO 1,500 MG/100 ML RTUPB IV ONE (23:59)
[2018-05-05 02:30] VITALS: BP 126/70
== END 2018-05-05 02:40 ==
LOC: ER 20:48
DX: G30.9 Alzheimer's disease, unspecified (principal); F02.80 Dementia in other diseases classified elsewhere, unspecified severity, without behavioral disturbance, psychotic disturbance, mood disturbance, and anxiety; R56.9 Unspecified convulsions; R45.1 Restlessness and agitation; I25.2 Old myocardial infarction; I10 Essential (primary) hypertension; E11.9 Type 2 diabetes mellitus without complications
CPT/HCPCS: 99284; 96372; 96374; 36415; 85025; 80053; 81001; A9270; J1630; J1953

== ENCOUNTER 2018-05-11 09:14 | Emergency (ER) | payer MEDICARE, MEDICAID ==
[2018-05-11] MEDS ORDERED: HALOPERIDOL LACTATE INJ 5 MG/1 ML VIAL IV ONE (09:41)
[2018-05-11 09:53] LABS: ABSOLUTE EOSINOPHILS # (AUTO) 0.1 10^3/uL (0.0-0.6); ABSOLUTE LYMPHOCYTES (AUTO) 1.1 10^3/uL (0.5-4.7); ABSOLUTE MONOCYTES (AUTO) 0.5 10^3/uL (0.1-1.4); ABSOLUTE NEUT (AUTO) 7.8 10^3/uL (1.7-8.2); BASOPHILS % (AUTO) 0.4 % (0-2); EOSINOPHILS % (AUTO) 0.6 % (0-6); LYMPHOCYTES % (AUTO) 11.6 % (13-45); MEAN CORPUSCULAR HEMOGLOBIN 31.1 pg (27.0-33.4); MEAN CORPUSCULAR HGB CONC 34.1 g/dL (32.0-36.0); MEAN CORPUSCULAR VOLUME 91 fl (80-97); MONOCYTES % (AUTO) 5.7 % (3-13); PLATELET COUNT 237 10^3/uL (150-450); RED BLOOD COUNT 4.17 10^6/uL (4.35-5.55); RED CELL DISTRIBUTION WIDTH 13.8 % (11.5-14.0); SEGMENTED NEUTROPHILS % (AUTO) 81.7 % (42-78); TOTAL CELLS COUNTED % (AUTO) 100 %; WHITE BLOOD COUNT 9.6 10^3/uL (4.0-10.5)
[2018-05-11] MEDS ORDERED: LORAZEPAM INJ 2 MG/1 ML VIAL IV ONE ×2 (09:57→13:00)
[2018-05-11] MEDS ORDERED: DIPHENHYDRAMINE HCL 50 MG/ML VIAL IV ONE (09:57)
[2018-05-11 10:11] LABS: ALANINE AMINOTRANSFERASE 33 U/L (21-72); ALBUMIN 4.1 g/dL (3.5-5.0); ALKALINE PHOSPHATASE 99 U/L (38-126); ANION GAP 15 (5-19); ASPARTATE AMINO TRANSFERASE 26 U/L (17-59); BILIRUBIN,DIRECT 0.3 mg/dL (0.0-0.4); BILIRUBIN,TOTAL 0.6 mg/dL (0.2-1.3); BLOOD UREA NITROGEN 5 mg/dL (7-20); CALCIUM 9.1 mg/dL (8.4-10.2); CARBON DIOXIDE 27 mmol/L (22-30); CHLORIDE 97 mmol/L (98-107); GLUCOSE 252 mg/dL (75-110); POTASSIUM 3.6 mmol/L (3.6-5.0); SODIUM 139.4 mmol/L (137-145); TOTAL PROTEIN 7.1 g/dL (6.3-8.2)
[2018-05-11 10:21] LABS: APPEARANCE,URINE CLEAR; BILIRUBIN,URINE NEGATIVE (NEGATIVE); COLOR,URINE COLORLESS; GLUCOSE, URINE >=500 mg/dL (NEGATIVE); KETONES,URINE TRACE mg/dL (NEGATIVE); LEUKOCYTE ESTERASE,URINE NEGATIVE (NEGATIVE); NITRITE,URINE NEGATIVE (NEGATIVE); PROTEIN,URINE NEGATIVE (NEGATIVE); URINE SPECIFIC GRAVITY 1.001; UROBILINOGEN,URINE NEGATIVE mg/dL (<2.0)
[2018-05-11] MEDS ORDERED: LEVETIRACETAM 500 MG TABLET PO ONE (12:10)
--- NOTE | 2018-05-11 12:41 | ER Document Report ---
ED General - General Chief Complaint: Altered Mental Status Stated Complaint: ALTERED MENTAL STATUS Time Seen by Provider: 05/11/18 09:26 Notes: Patient Is a Resident of [facility]. EMS was called to the scene this morning and told that the patient was altered mental status. There was no other information provided. There is recorded on his paperwork from transit, that he had blood pressures of 250 systolic both at the facility and by EMS. However, upon his arrival here, his blood pressure is 172/91. Patient was brought in very loudly hollering and screaming and requesting ice water and waving his Bible at everyone. I spoke with the patient's daughter who is concerned he may have had a seizure. He was diagnosed with seizures earlier this month when he was here in this emergency department and acted in the similar manner to his behavior today. He was observed to have a seizure at that time. He was placed on Keppra 500 mg twice a day and Ativan 1 mg in the morning and 1 mg in the evening and a half a milligram midday. Nurse here called [facility] and found out that they did not give the patient his 8 AM Keppra and Ativan 1 mg. He was picked up by EMS about 9 AM and they arrived here about 9:15. No one reports seeing a seizure at [facility], however. In route here, patient was given 2 mg of Ativan IM and 2.5 mg of Versed intranasal. Patient is still very agitated and loud and confused. He answers some questions appropriately and follows some commands, and then does not seem to make any sense at all and what he saying. He has been diagnosed as having dementia. Patient is a DNR patient and has the proper yellow form with his records sent here. TRAVEL OUTSIDE OF THE [place] IN LAST 30 DAYS: No - Related Data Allergies/Adverse Reactions: No Known Allergies Allergy (Verified 05/11/18 09:39) Past Medical History - Social History Smoking Status: Never Smoker Chew tobacco use (# tins/day): No Frequency of alcohol use: None Drug Abuse: None Lives with: Custodial Family History: Reviewed & Not Pertinent Patient has suicidal ideation: No Patient has homicidal ideation: No - Past Medical History Cardiac Medical History: Reports: Hx Coronary Artery Disease, Hx Heart Attack, Hx Hypercholesterolemia, Hx Hypertension Pulmonary Medical History: Reports: Hx Pneumonia Neurological Medical History: Reports: Hx Seizures - "several" per pt's son Endocrine Medical History: Reports: Hx Diabetes Mellitus Type 1, Hx Diabetes Mellitus Type 2, Hx Hypothyroidism Musculoskeltal Medical History: Reports Hx Arthritis Psychiatric Medical History: Reports: Hx Anxiety, Hx Dementia, Hx Depression Traumatic Medical History: Reports: Hx Fractures - left arm childhood Past Surgical History: Reports: Hx Cardiac Catheterization - Stent x3, Hx Cholecystectomy, Hx Coronary Stent - Immunizations Immunizations up to date: Yes Hx Diphtheria, Pertussis, Tetanus Vaccination: No Hx Pneumococcal Vaccination: 09/20/10 Review of Systems - Review of Systems -: Yes ROS unobtainable due to patient's medical condition Physical Exam - Vital signs Vitals: Temp Pulse Resp BP Pulse Ox 98.3 F 93 19 172/91 H 95 05/11/18 09:14 05/11/18 09:14 05/11/18 09:14 05/11/18 09:14 05/11/18 09:14 Interpretation: Normal, Hypertensive - Mild - Notes Notes: PHYSICAL EXAMINATION: GENERAL: Well-appearing, but agitated and loud and somewhat disruptive, although not belligerent or hostile. HEAD: Atraumatic, normocephalic. EYES: Pupils equal round and reactive to light, extraocular movements intact. ENT: oropharynx clear without exudates. Moist mucous membranes. NECK: Normal range of motion, supple. LUNGS: Breath sounds clear and equal bilaterally. HEART: Regular rate and rhythm without murmurs. ABDOMEN: Soft, nontender. No guarding or rebound. No masses. BACK: No tenderness throughout entire back. EXTREMITIES: Normal range of motion without pain. NEUROLOGICAL: Patient is able to stand at bedside. His speech is confused at times although at other times you can understand what he saying. He follows some commands and not others. Grossly normal sensory, motor, and reflex exams. Awake, alert, not oriented x3. PSYCH: Normal mood, normal affect. SKIN: Warm, dry, no rashes. Course - Re-evaluation Re-evalutation: 05/11/18 19:58 Patient's agitation was controlled with Haldol, Benadryl, and Ativan IV. By the time of his discharge, he had eaten lunch and had calm down and was relatively quiet and cooperative. - Vital Signs Vital signs: Temp Pulse Resp BP Pulse Ox 98.4 F 93 16 154/86 H 95 05/11/18 14:59 05/11/18 09:14 05/11/18 15:00 05/11/18 14:59 05/11/18 15:00 - Laboratory Result Diagrams: 05/11/18 09:20 05/11/18 09:20 Laboratory results interpreted by me: 05/11/18 05/11/18 05/11/18 09:20 09:20 09:20 RBC 4.17 L Hgb 13.0 L Seg Neutrophils % 81.7 H Lymphocytes % 11.6 L Chloride 97 L BUN 5 L Glucose 252 H Urine Glucose (UA) >=500 H Urine Ketones TRACE H Discharge - Discharge Clinical Impression: Altered mental status, Dementia, Seizure Condition: Stable Disposition: HOME, SELF-CARE Additional Instructions: Altered Mental Status An altered mental status is a change in the normal functioning of the brain. This alteration of function can range from minor decreased brain function with some forgetfulness and confusion to complete loss of consciousness and coma. There are many possible causes of an altered mental status and include brain injuries such as trauma or strokes, problems with oxygen supply to the brain, fever and infections of the brain and/or elsewhere in the body, metabolic abnormalities such as low or high blood sugar, overdoses or excessive medication ingestion, and mental and psychiatric illnesses. Sometimes the altered mental status resolves and a definite cause is not determined. If a cause for your altered mental status was found, it has likely been corrected. Your evaluation has not shown any condition that requires that you be admitted to the hospital. It is believed that you are safe to leave and return to your home. If you have a return of your symptoms, you should return for re-evaluation. Dementia The exam shows a decrease in mental ability called dementia. Signs of dementia include a gradual loss of memory and a decreased ability to reason and solve problems. Personality changes, hostility, lack of self-care, and loss of bladder or bowel control are later signs of dementia. In these later stages, patients may become confused, lost, fearful, or agitated, even in familiar places. Alzheimer's disease is the most common type of dementia. It has no known cause or specific treatment. Other causes include alcohol and drug abuse, medication effects (especially tranquilizers and sleeping pills), strokes, head injuries, and brain tumors. Sometimes severe depression in an elderly person is mistaken for dementia, and this can be treated if recognized. A complete medical evaluation and ongoing care with a doctor is important. Most people with dementia need help or supervision with daily living. Some may be able to live independently with occasional help; others require foster care or even fpc placement. Alcohol, sedatives, and antihistamines may make the symptoms worse and should be avoided. Alzheimer's disease support groups are available in some communities and can be very valuable to the entire family. Prescription medication can ease the symptoms of Alzheimer's disease in some patients. Please arrange for medical follow-up. Return here if there is a sudden change in mental function, inability to move an arm or leg, inability to speak, fever, or any other significant change. Possible Seizure, Known Epileptic You have had a seizure. Seizures may "break through" in an epileptic due to stress of infection or injury, a change in blood chemistry, or drug and alcohol use. Another common cause is failure to take medication as prescribed. Your doctor has evaluated your situation for the likely cause of this seizure. It is important that you follow his advice concerning any medication changes and follow-up care. Further testing of anti-seizure medication levels in your blood may be necessary. If you have a courtesy bus driver's license, it's important that you DO NOT DRIVE until given permission by your physician. This seizure must be reported to the courtesy bus driver 's license bureau. Call the doctor or return if seizures recur, or if new or unusual symptoms arise -- such as severe headache, confusion, excessive sleepiness, local weakness or numbness, neck stiffness, or fever. Give patient his seizure medications as scheduled.
[2018-05-11 15:21] VITALS: BP 154/86
== END 2018-05-11 15:00 | disposition home or self-care (01) ==
LOC: ER 09:14
DX: R56.9 Unspecified convulsions (principal); F03.90 Unspecified dementia, unspecified severity, without behavioral disturbance, psychotic disturbance, mood disturbance, and anxiety; R45.1 Restlessness and agitation; I25.10 Atherosclerotic heart disease of native coronary artery without angina pectoris; I25.2 Old myocardial infarction; I10 Essential (primary) hypertension; E11.9 Type 2 diabetes mellitus without complications; Z66 Do not resuscitate
CPT/HCPCS: 96376; 99285; 96374; 96375; 36415; 85025; 80053; 81001; J1200; J1630; J2060; A9270

== ENCOUNTER 2018-05-22 13:20 | Observation (INO) | payer MEDICARE, MEDICAID ==
--- NOTE | 2018-05-22 13:32 | ER Document Report ---
ED General - General Stated Complaint: PSYCH EVAL Time Seen by Provider: 05/22/18 13:27 Mode of Arrival: Medic Information source: Patient TRAVEL OUTSIDE OF THE [place] IN LAST 30 DAYS: No - HPI Notes: 72-year-old male with a history of dementia, Alzheimer's and newly diagnosed seizure disorder who is a resident at [place] presents via EMS today for concerns of altered mental status and acting "weird" today. patient is very agitated, loud and appears to be confused. Olegario warren was concerned about patient having manic-like behavior in want him evaluated in the ED. Olegario Warren states that his behavior changes started declining back in July 2016. Patient is taking Aricept for his dementia. Vitals are stable. Pt has been very combative and hostile towards staff from when he came to the ER. - Related Data Allergies/Adverse Reactions: No Known Allergies Allergy (Verified 05/11/18 09:39) Past Medical History - General Information source: Patient - Social History Smoking Status: Unknown if Ever Smoked Family History: Reviewed & Not Pertinent - Past Medical History Cardiac Medical History: Reports: Hx Coronary Artery Disease, Hx Heart Attack, Hx Hypercholesterolemia, Hx Hypertension Pulmonary Medical History: Reports: Hx Pneumonia Denies: Hx Tuberculosis Neurological Medical History: Reports: Hx Seizures - "several" per pt's son Endocrine Medical History: Reports: Hx Diabetes Mellitus Type 1, Hx Diabetes Mellitus Type 2, Hx Hypothyroidism Renal/ Medical History: Denies: Hx Peritoneal Dialysis Musculoskeltal Medical History: Reports Hx Arthritis Psychiatric Medical History: Reports: Hx Anxiety, Hx Dementia, Hx Depression Traumatic Medical History: Reports: Hx Fractures - left arm childhood Past Surgical History: Reports: Hx Cardiac Catheterization - Stent x3, Hx Cholecystectomy, Hx Coronary Stent. Denies: Hx Pacemaker - Immunizations Immunizations up to date: Yes Hx Diphtheria, Pertussis, Tetanus Vaccination: No Hx Pneumococcal Vaccination: 09/20/10 Review of Systems - Review of Systems Constitutional: See HPI EENT: No symptoms reported Cardiovascular: No symptoms reported Respiratory: No symptoms reported Gastrointestinal: No symptoms reported Genitourinary: No symptoms reported Male Genitourinary: No symptoms reported Musculoskeletal: See HPI Skin: No symptoms reported Hematologic/Lymphatic: No symptoms reported Neurological/Psychological: See HPI Physical Exam - Vital signs Vitals: Temp Pulse Resp BP Pulse Ox 98.2 F 72 18 157/81 H 97 05/22/18 13:27 07/03/18 13:27 05/22/18 13:27 05/22/18 13:27 05/22/18 13:27 - Notes Notes: PHYSICAL EXAMINATION: GENERAL: Well-appearing, well-nourished and in no mild distress. HEAD: Atraumatic, normocephalic. EYES: Pupils equal round and reactive to light, extraocular movements intact, sclera anicteric, conjunctiva are normal. ENT: Nares patent, oropharynx clear without exudates. Moist mucous membranes. NECK: Normal range of motion, supple without lymphadenopathy LUNGS: Breath sounds clear to auscultation bilaterally and equal. No wheezes rales or rhonchi. HEART: Regular rate and rhythm without murmurs ABDOMEN: Soft, nontender, nondistended abdomen. No guarding, no rebound. No masses appreciated. Musculoskeletal: Normal range of motion, no pitting or edema. No cyanosis. NEUROLOGICAL: Cranial nerves grossly intact. Normal speech, normal gait. Normal sensory, motor exams SKIN: Warm, Dry, normal turgor, no rashes or lesions noted. - Psychological Associated symptoms: Aggressive, Agitated, Combative, Restlessness, Uncooperative Course - Re-evaluation Re-evalutation: 05/22/18 14:09 72-year-old male with past medical history of Alzheimer's and dementia presents via EMS from [facility] concerns of not acting himself and appearing to be manic. Patient being aggressive with staff, attempting to kick and punch staff members. Patient redirected multiple times, patient unwilling to listen to staff to not kick and punch, patient given 5 mg of Haldol to try and calm patient, 50 mg of Benadryl given, patient placed in 4 point restraints as he is continually attempting to punch and kick bedside nurse and staff at 1400. Patient is making Chest x-ray negative for any acute findings per radiology. Lactic is 1.4. Ammonia is 10.3. CT head without contrast essentially unchanged, no acute stroke. BNP is 192. CBC shows slight elevation leukocytosis, however I do not suspect this to be urinalysis negative for infection, proteinuria or glucosuria , CMP negative for hepatic or renal deficiency. no electrolyte disturbances. Pt remains combative, screaming at staff and nonsensical manner. Psych consult initiated patient given Ativan because he missed his home dose this morning, given IV Keppra, advised to start patient on Depakote, BuSpar and Klonopin patch and to DC all home medications. Pt has encephalopathy and altered mental status, will admit under hospitalist, Dr. Marquis Valdes, for further evaluation and management of his care - Vital Signs Vital signs: Temp Pulse Resp BP Pulse Ox 98.2 F 72 18 157/81 H 97 05/22/18 13:27 05/22/18 13:27 05/22/18 13:27 05/22/18 13:27 05/22/18 13:27 - Laboratory Result Diagrams: 05/22/18 13:25 05/22/18 13:25 Laboratory results interpreted by me: 05/22/18 05/22/18 05/22/18 13:25 13:25 13:25 WBC 13.4 H RBC 3.89 L Hgb 12.0 L Hct 35.5 L Absolute Neutrophils 9.4 H Potassium 3.5 L Chloride 94 L Carbon Dioxide 31 H Creatine Kinase 759 H CK-MB (CK-2) 5.71 H Salicylates < 1.0 L Acetaminophen < 10 L - EKG Interpretation by Me EKG shows normal: Sinus rhythm Rate: Normal Rhythm: NSR - no stemi When compared to previous EKG there are: No significant change Discharge - Discharge Clinical Impression: Encephalopathy Altered mental status Qualifiers: Altered mental status type: disorientation Qualified Code(s): R41.0 - Disorientation, unspecified Condition: Stable Disposition: ADMITTED INPATIENT Admitting Provider: Hospitalist - Dr. Marquis Valdes Unit Admitted: Medical Floor
[2018-05-22 13:43] LABS: ABSOLUTE BASOPHILS # (AUTO) 0.1 10^3/uL (0.0-0.2); ABSOLUTE EOSINOPHILS # (AUTO) 0.1 10^3/uL (0.0-0.6); ABSOLUTE LYMPHOCYTES (AUTO) 2.5 10^3/uL (0.5-4.7); ABSOLUTE MONOCYTES (AUTO) 1.2 10^3/uL (0.1-1.4); ABSOLUTE NEUT (AUTO) 9.4 10^3/uL (1.7-8.2); BASOPHILS % (AUTO) 0.7 % (0-2); HEMATOCRIT 35.5 % (37.9-51.0); LYMPHOCYTES % (AUTO) 18.5 % (13-45); MEAN CORPUSCULAR HEMOGLOBIN 30.9 pg (27.0-33.4); MEAN CORPUSCULAR HGB CONC 33.9 g/dL (32.0-36.0); MEAN CORPUSCULAR VOLUME 91 fl (80-97); PLATELET COUNT 267 10^3/uL (150-450); RED BLOOD COUNT 3.89 10^6/uL (4.35-5.55); SEGMENTED NEUTROPHILS % (AUTO) 70.8 % (42-78); TOTAL CELLS COUNTED % (AUTO) 100 %; WHITE BLOOD COUNT 13.4 10^3/uL (4.0-10.5)
--- NOTE | 2018-05-22 13:54 | RADIOLOGY REPORT (SQ) ---
EXAM DESCRIPTION: CHEST SINGLE VIEW COMPLETED DATE/TIME: 05/22/2018 1:42 pm REASON FOR STUDY: ams per housing residence COMPARISON: AP chest 05/21/2016, 02/03/2017, 08/29/2017, 01/01/2018 EXAM PARAMETERS: NUMBER OF VIEWS: One view. TECHNIQUE: Single frontal radiographic view of the chest acquired. RADIATION DOSE: NA LIMITATIONS: Obese patient, portable technique with mild motion artifact. FINDINGS: LUNGS AND PLEURA: No acute infiltrates. No pleural effusion or pneumothorax. Mild increa sed interstitial markings at both lung bases are stable. MEDIASTINUM AND HILAR STRUCTURES: No masses. Contour normal. HEART AND VASCULAR STRUCTURES: Stable moderate cardiomegaly BONES: No acute findings. HARDWARE: None in the chest. OTHER: No other significant finding. IMPRESSION: No acute findings TECHNICAL DOCUMENTATION: JOB ID: [id number] [employer]- All Rights Reserved Reading location - IP/workstation name: [email or web address]
[2018-05-22] MEDS ORDERED: HALOPERIDOL LACTATE INJ 5 MG/1 ML VIAL IV ONE (14:00)
[2018-05-22] MEDS ORDERED: HALOPERIDOL LACTATE INJ 5 MG/1 ML VIAL ONE (14:01)
[2018-05-22] MEDS ORDERED: DIPHENHYDRAMINE HCL 50 MG/ML VIAL IV ONE (14:02)
[2018-05-22] MEDS ORDERED: DIPHENHYDRAMINE HCL 50 MG/ML VIAL ONE (14:03)
[2018-05-22 14:04] LABS: ALANINE AMINOTRANSFERASE 32 U/L (21-72); ALKALINE PHOSPHATASE 92 U/L (38-126); ANION GAP 13 (5-19); ASPARTATE AMINO TRANSFERASE 39 U/L (17-59); BILIRUBIN,DIRECT 0.2 mg/dL (0.0-0.4); BILIRUBIN,TOTAL 0.7 mg/dL (0.2-1.3); BLOOD UREA NITROGEN 7 mg/dL (7-20); CALCIUM 8.9 mg/dL (8.4-10.2); CARBON DIOXIDE 31 mmol/L (22-30); CHLORIDE 94 mmol/L (98-107); CREATINE KINASE 759 U/L (55-170); GLUCOSE 104 mg/dL (75-110); POTASSIUM 3.5 mmol/L (3.6-5.0); SODIUM 137.7 mmol/L (137-145); TOTAL PROTEIN 7.1 g/dL (6.3-8.2)
[2018-05-22 14:05] LABS: ACETAMINOPHEN < 10 ug/mL (10-30); ALCOHOL < 10 mg/dL (NONE DETECTED); SALICYLATE < 1.0 mg/dL (2.0-20.0)
[2018-05-22 14:15] LABS: CREATINE KINASE MB 5.71 ng/mL (<4.55)
[2018-05-22] MEDS ORDERED: ZIPRASIDONE MESYLATE INJ/PF 20 MG SDV IM ONE (14:16)
[2018-05-22 14:18] LABS: TROPONIN I < 0.012 ng/mL
[2018-05-22] MEDS ORDERED: LEVETIRACETAM 1500 MG/NACL-ISO 1,500 MG/100 ML RTUPB IV ONE (14:18)
[2018-05-22] MEDS ORDERED: BUSPIRONE HCL 10 MG TABLET PO ONE (14:33)
[2018-05-22] MEDS ORDERED: CLONIDINE 0.1 MG/24 HR PATCH.TDWK TD ONE ×2 (15:02→18:13)
[2018-05-22] MEDS ORDERED: LORAZEPAM INJ 2 MG/1 ML VIAL IV ONE ×2 (15:02→17:40)
--- NOTE | 2018-05-22 16:43 | PSYCHOLOGICAL NOTE ---
Psych Note - Psych Note Psych Note: Reason for Consult: medication recommendations 72-year-old male with a history of dementia, Alzheimer's and newly diagnosed seizure disorder who is a resident at [facility] presents via EMS today for concerns of altered mental status. Information was provided at time of patient arriving to the ED. patient is very agitated, loud and appears to be confused. [facility] was concerned about patient having manic-like behavior in want him evaluated in the ED. States his fever started declining back in July 2016. Medication recommendations per [facility] contracted psychiatrist Dr. Janelle PINEDA are as follows 1. Please discontinue home medications of Haldol, Wellbutrin, lorazepam, trazodone, Prozac, and Keppra 2. Please increase Depakote to 500 mg twice daily 3. Please start BuSpar 5 mg every morning and 10 mg nightly 4. Please start Clonidine 0.1mg 24 hour patch 5. Propranolol 10 mg once Impression\plan: Patient is cleared from acute psychiatric services. Medication recommendations have been provided. Patient has advanced Alzheimer' s and is a resident of [facility]. Dr. Navarrete was consulted and the care management this patient; attending physician is agreement with recommendations and disposition.
[2018-05-22 17:37] LABS: APPEARANCE,URINE CLEAR; BILIRUBIN,URINE NEGATIVE (NEGATIVE); COLOR,URINE STRAW; GLUCOSE, URINE NEGATIVE (NEGATIVE); KETONES,URINE NEGATIVE (NEGATIVE); LEUKOCYTE ESTERASE,URINE NEGATIVE (NEGATIVE); NITRITE,URINE NEGATIVE (NEGATIVE); PROTEIN,URINE NEGATIVE (NEGATIVE); URINE SPECIFIC GRAVITY 1.002; UROBILINOGEN,URINE NEGATIVE mg/dL (<2.0)
[2018-05-22 17:57] LABS: URINE AMPHETAMINES SCREEN NEGATIVE; URINE BARBITURATES SCREEN NEGATIVE; URINE BENZODIAZEPINES SCREEN NEGATIVE; URINE COCAINE SCREEN NEGATIVE; URINE MARIJUANA (THC) SCREEN NEGATIVE; URINE METHADONE SCREEN NEGATIVE; URINE PHENCYCLIDINE SCREEN NEGATIVE
[2018-05-22] MEDS ORDERED: ACETAMINOPHEN 650 MG SUPP.RECT PR PRN (18:04)
[2018-05-22] MEDS ORDERED: ONDANSETRON HCL INJ/PF 4 MG/2 ML SDV IV PRN (18:04)
--- NOTE | 2018-05-22 18:22 | RADIOLOGY REPORT (SQ) ---
EXAM DESCRIPTION: CT HEAD WITHOUT COMPLETED DATE/TIME: 05/22/2018 6:07 pm REASON FOR STUDY: ams COMPARISON: 01/01/2018 TECHNIQUE: Axial images acquired through the brain without intravenous contrast. Images reviewed wi th bone, brain and subdural windows. Additional sagittal and coronal reconstructions were generated. Images stored on PACS. All CT scanners at this facility use dose modulation, iterative reconstruction, and/or weight based d osing when appropriate to reduce radiation dose to as low as reasonably achievable (ALARA). [facility]: Dose Right [facility]: CareDose [facility]: Dose Right [facility]: Teradose 4D [facility]: Smart Ignyta RADIATION DOSE: CT Rad equipment meets quality standard of care and radiation dose reduction techniq ues were employed. CTDIvol: 48.5 mGy. DLP: 855 mGy-cm.mGy. LIMITATIONS: None. FINDINGS: VENTRICLES: Prominent. CEREBRUM: No masses. No hemorrhage. No midline shift. Areas of low density in the white matter mos t likely due to chronic micro-vascular ischemic change. 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 No evidence for acute infarction. CEREBELLUM: No masses. No hemorrhage. No alteration of density. No evidence for acute infarction. EXTRAAXIAL SPACES: Age-related involutional change. No fluid collections. No masses. ORBITS AND GLOBE: No intra- or extraconal masses. Normal contour of globe without masses. CALVARIUM: No fracture. PARANASAL SINUSES: No fluid or mucosal thickening. SOFT TISSUES: No mass or hematoma. OTHER: No other significant finding. IMPRESSION: CHRONIC CHANGES OF ATROPHY AND MICROVASCULAR ISCHEMIA. 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 NO A CUTE PROCESS. EVIDENCE OF ACUTE STROKE: NO. TECHNICAL DOCUMENTATION: JOB ID: [id number] Quality ID # [id number]: Final reports with documentation of one or more dose reduction techniques (e.g., Au tomated exposure control, adjustment of the mA and/or kV according to patient size, use of iterative reconstruction technique) 2010 [employer]- All Rights Reserved Reading location - IP/workstation name: [email or web address]
--- NOTE | 2018-05-22 18:24 | PDOC H&P ---
History of Present Illness History of Present Illness: RASHAAD EDOUARD is a 72 year old male patient with past medical history of CAD, hyperlipidemia, hypothyroidism, Alzheimer's dementia, hypertension, recent diagnosis of seizure and diabetes mellitus who is [facility] resident today for altered mental status. Based on when he arrived to ER patient is aggressive and agitated and combative so they put four-point soft restraints. Patient has been evaluated by psych and they discontinued his home medication which includes Haldol, lorazepam, Keppra, Prozac, trazodone recommended to start him on Depakote, BuSpar and clonidine. Further detailed history and review of systems unobtainable because of patient's cognitive impairment and agitation. Past Medical History Cardiac Medical History: Reports: Coronary Artery Disease, Myocardial Infarction , Hyperlipidema, Hypertension Pulmonary Medical History: Reports: Pneumonia Denies: Tuberculosis Neurological Medical History: Reports: Seizures - "several" per pt's son Endocrine Medical History: Reports: Diabetes Mellitus Type 1, Diabetes Mellitus Type 2, Hypothyroidism Musculoskeltal Medical History: Reports: Arthritis Psychiatric Medical History: Reports: Dementia, Depression Past Surgical History Past Surgical History: Reports: Cardiac Catheterization - Stent x3, Cholecystectomy, Coronary Stent Denies: Pacemaker Social History Smoking Status: Unknown if Ever Smoked Frequency of Alcohol Use: None Hx Recreational Drug Use: No Drugs: None Hx Prescription Drug Abuse: No Family History Family History: Reviewed & Not Pertinent, Other - Unknown Parental Family History Reviewed: Yes Children Family History Reviewed: Yes Sibling(s) Family History Reviewed.: Yes Medication/Allergy Home Medications: Acetaminophen [Tylenol Extra Strength 500 mg Tablet] 500 mg PO Q4HP PRN Amlodipine Besylate [Norvasc 5 mg Tablet] 5 mg PO DAILY 01/01/18 Aspirin [Aspirin EC] 81 mg PO DAILY 01/01/18 Atorvastatin Calcium [Lipitor 20 mg Tablet] 20 mg PO QHS 01/01/18 Bupropion HCl [Wellbutrin 75 mg Tablet] 75 mg PO DAILY 01/01/18 Cholecalciferol (Vitamin D3) [Vitamin D3 2000 unit Tablet] 2,000 unit PO DAILY 01/01/18 Clopidogrel Bisulfate [Plavix 75 mg Tablet] 75 mg PO DAILY 01/01/18 Cyanocobalamin (Vitamin B-12) [Vitamin B-12] 1,000 mcg PO DAILY 01/01/18 Donepezil HCl [Aricept] 10 mg PO QHS 01/01/18 Fluoxetine HCl [Prozac 20 mg Capsule] 20 mg PO DAILY 01/01/18 Glipizide [Glucotrol 10 mg Tablet] 10 mg PO DAILY 01/01/18 Insulin Aspart [Novolog Insulin (Aspart) 100 unit/mL] See Protocol SQ QID Loperamide HCl [Loperamide] 2 mg PO DAILYP PRN 01/01/18 Lorazepam [Ativan 0.5 mg Tablet] 0.5 mg PO DAILY 01/01/18 Losartan Potassium [Cozaar 100 mg Tablet] 100 mg PO DAILY 01/01/18 Magnesium Hydroxide [Milk of Magnesia 30 ml Udcup] 30 ml PO HSP PRN 01/01/18 Meclizine HCl [Antivert 25 mg Tablet] 25 mg PO Q8HP PRN 01/01/18 Metoprolol Tartrate [Lopressor 25 mg Tablet] 25 mg PO Q12 01/01/18 Temazepam [Restoril 15 mg Capsule] 15 mg PO QHS 01/01/18 Aspirin [Ecotrin 81 mg EC Tablet] 81 mg PO DAILY 30 Days #30 tabec 01/02/18 Risperidone [Risperdal] 0.5 mg PO ACSUPPER 30 Days #30 tablet 01/02/18 Ziprasidone HCl [Geodon 20 Mg Capsule] 20 mg PO BID #14 capsule 01/06/18 Levetiracetam [Keppra 500 mg Tablet] 500 mg PO Q12 #60 tablet 05/05/18 Allergies/Adverse Reactions: No Known Allergies Allergy (Verified 05/11/18 09:39) Review of Systems ROS unobtainable: Due to mental status Physical Exam Vital Signs: Temp Pulse Resp BP Pulse Ox 98.2 F 72 18 157/81 H 97 05/22/18 13:27 05/22/18 13:27 05/22/18 13:27 05/22/18 13:27 05/22/18 13:27 Intake & Output 05/21/18 05/22/18 05/23/18 06:59 06:59 06:59 Output Total 750 Balance -750 General appearance: PRESENT: mild distress Head exam: PRESENT: atraumatic Ear exam: PRESENT: normal external ear exam Neck exam: ABSENT: carotid bruit, JVD, lymphadenopathy, thyromegaly Respiratory exam: PRESENT: clear to auscultation harsh. ABSENT: rales, rhonchi, wheezes Cardiovascular exam: PRESENT: RRR. ABSENT: diastolic murmur, rubs, systolic murmur GI/Abdominal exam: PRESENT: normal bowel sounds, soft. ABSENT: distended, guarding, mass, organolmegaly, rebound, tenderness Neurological exam: PRESENT: altered Focused psych exam: PRESENT: psychomotor agitation, restlessness Results Laboratory Results: 05/22/18 13:25 05/22/18 13:25 05/22/18 05/22/18 05/22/18 13:25 13:25 13:25 WBC 13.4 H RBC 3.89 L Hgb 12.0 L Hct 35.5 L MCV 91 MCH 30.9 MCHC 33.9 RDW 14.0 Plt Count 267 Seg Neutrophils % 70.8 Lymphocytes % 18.5 Monocytes % 9.0 Eosinophils % 1.0 Basophils % 0.7 Absolute Neutrophils 9.4 H Absolute Lymphocytes 2.5 Absolute Monocytes 1.2 Absolute Eosinophils 0.1 Absolute Basophils 0.1 Sodium 137.7 Potassium 3.5 L Chloride 94 L Carbon Dioxide 31 H Anion Gap 13 BUN 7 Creatinine 0.74 Est GFR ( Amer) > 60 Est GFR (Non-Af Amer) > 60 Glucose 104 Lactic Acid Calcium 8.9 Total Bilirubin 0.7 AST 39 ALT 32 Alkaline Phosphatase 92 Ammonia Total Protein 7.1 Albumin 4.0 TSH 2.95 Urine Color Urine Appearance Urine pH Ur Specific [place] Urine Protein Urine Glucose (UA) Urine Ketones Urine Blood Urine Nitrite Ur Leukocyte Esterase Urine WBC (Auto) Urine RBC (Auto) 05/22/18 05/22/18 05/22/18 16:50 16:50 16:50 WBC RBC Hgb Hct MCV MCH MCHC RDW Plt Count Seg Neutrophils % Lymphocytes % Monocytes % Eosinophils % Basophils % Absolute Neutrophils Absolute Lymphocytes Absolute Monocytes Absolute Eosinophils Absolute Basophils Sodium Potassium Chloride Carbon Dioxide Anion Gap BUN Creatinine Est GFR ( Amer) Est GFR (Non-Af Amer) Glucose Lactic Acid 1.4 Calcium Total Bilirubin AST ALT Alkaline Phosphatase Ammonia 10.2 Total Protein Albumin TSH Urine Color STRAW Urine Appearance CLEAR Urine pH 7.0 Ur Specific [place] 1.002 Urine Protein NEGATIVE Urine Glucose (UA) NEGATIVE Urine Ketones NEGATIVE Urine Blood NEGATIVE Urine Nitrite NEGATIVE Ur Leukocyte Esterase NEGATIVE Urine WBC (Auto) 0 Urine RBC (Auto) 0 07/03/18 07/03/18 07/03/18 13:25 13:25 13:25 Creatine Kinase 759 H CK-MB (CK-2) 5.71 H Troponin I < 0.012 NT-Pro-B Natriuret Pep 193 Impressions: Chest X-Ray 05/22/18 13:27 IMPRESSION: No acute findings Assessment & Plan - Diagnosis (1) Altered mental status Qualifiers: Altered mental status type: disorientation Qualified Code(s): R41.0 - Disorientation, unspecified Is this a current diagnosis for this admission?: Yes Plan: Patient has underlying dementia and has been on benzodiazepine and Haldol which might precipitate his current condition. His medications has been discontinued and replaced with BuSpar, clonidine, and Depakote. (2) Diabetes mellitus Qualifiers: Diabetes mellitus type: type 2 Is this a current diagnosis for this admission?: Yes Plan: Continue start his home medication he will be on sliding scale. (3) CAD (coronary artery disease) Qualifiers: Coronary Disease-Associated Artery/Lesion type: [place] artery Is this a current diagnosis for this admission?: Yes Plan: No angina. We will continue his home medications. (4) Seizure disorder Is this a current diagnosis for this admission?: Yes Plan: Patient recently diagnosed with seizure and has been on Keppra which is discontinued today by psych and he will be on Depakote. We will elevate his bed., Will monitor him for aspiration and seizure. (5) Hypothyroidism Qualifiers: Hypothyroidism type: acquired Qualified Code(s): E03.9 - Hypothyroidism, unspecified Is this a current diagnosis for this admission?: Yes Plan: Continue Synthroid
--- NOTE | 2018-05-22 18:53 | EKG REPORT ---
SEVERITY:- ABNORMAL ECG - SINUS RHYTHM PROBABLE LVH WITH SECONDARY REPOL ABNRM BORDERLINE PROLONGED QT INTERVAL : Confirmed by: Ian Ricardo MD 22-May-2018 18:53:01
[2018-05-23 05:44] LABS: ABSOLUTE BASOPHILS # (AUTO) 0.1 10^3/uL (0.0-0.2); ABSOLUTE EOSINOPHILS # (AUTO) 0.2 10^3/uL (0.0-0.6); ABSOLUTE LYMPHOCYTES (AUTO) 1.1 10^3/uL (0.5-4.7); ABSOLUTE MONOCYTES (AUTO) 0.8 10^3/uL (0.1-1.4); BASOPHILS % (AUTO) 0.6 % (0-2); EOSINOPHILS % (AUTO) 1.9 % (0-6); HEMATOCRIT 33.8 % (37.9-51.0); HEMOGLOBIN 11.7 g/dL (13.5-17.0); LYMPHOCYTES % (AUTO) 11.2 % (13-45); MEAN CORPUSCULAR HEMOGLOBIN 31.5 pg (27.0-33.4); MEAN CORPUSCULAR HGB CONC 34.6 g/dL (32.0-36.0); MEAN CORPUSCULAR VOLUME 91 fl (80-97); MONOCYTES % (AUTO) 7.6 % (3-13); PLATELET COUNT 213 10^3/uL (150-450); RED BLOOD COUNT 3.72 10^6/uL (4.35-5.55); SEGMENTED NEUTROPHILS % (AUTO) 78.7 % (42-78); TOTAL CELLS COUNTED % (AUTO) 100 %; WHITE BLOOD COUNT 10.1 10^3/uL (4.0-10.5)
[2018-05-23 05:52] LABS: ANION GAP 10 (5-19); BLOOD UREA NITROGEN 6 mg/dL (7-20); CALCIUM 8.4 mg/dL (8.4-10.2); CARBON DIOXIDE 30 mmol/L (22-30); CHLORIDE 99 mmol/L (98-107); GLUCOSE 101 mg/dL (75-110); POTASSIUM 3.1 mmol/L (3.6-5.0)
[2018-05-23] MEDS: VALPROATE SODIUM SYRUP 250 MG/5 ML UDCUP PO SCH ×3 (06:20→23:55)
[2018-05-23] MEDS: BUSPIRONE HCL 10 MG TABLET PO SCH ×3 (06:20→23:52)
[2018-05-23] MEDS ORDERED: LOPERAMIDE HCL 2 MG CAPSULE PO PRN (12:44)
[2018-05-23] MEDS ORDERED: MECLIZINE HCL 25 MG TABLET PO PRN (12:44)
[2018-05-23] MEDS ORDERED: (PENDING PHARMACY ID) (Acetaminophen [Tylenol Extra Strength 500 Mg Tablet] 500 MG) PO PRN (12:44)
[2018-05-23] MEDS ORDERED: MAGNESIUM HYDROXIDE SUSP 30 ML UDCUP PO PRN (12:44)
--- NOTE | 2018-05-23 13:23 | PDOC PROGRESS REPORT ---
Subjective Progress Note for:: 05/23/18 Subjective:: Is a 72 years old male patient transferred from custodial for altered mental status evidenced by disorientation and agitation and combativeness. Yesterday patient evaluated by psych and they recommended to discontinue Haldol, Prozac, trazodone, Keppra and lorazepam. Currently patient is getting Depakote and BuSpar. This morning I evaluated the patient while he is resting in bed comfortably. He is awake alert and less agitated and conversant. Patient is off restraint. His vital signs are stable and his lab shows mild hypokalemia with potassium of 3.1. Reason For Visit: ALTERED MENTAL STATUS POSSIBLY DUE TO UNDERLYING Physical Exam Vital Signs: Temp Pulse Resp BP Pulse Ox 97.7 F 91 17 148/69 H 94 05/23/18 11:49 05/23/18 11:49 05/23/18 11:49 05/23/18 11:49 05/23/18 11:49 General appearance: PRESENT: no acute distress, well-developed, well-nourished Head exam: PRESENT: atraumatic, normocephalic Eye exam: PRESENT: conjunctiva pink, EOMI, PERRLA. ABSENT: scleral icterus Ear exam: PRESENT: normal external ear exam Mouth exam: PRESENT: moist, tongue midline Neck exam: ABSENT: carotid bruit, JVD, lymphadenopathy, thyromegaly Respiratory exam: PRESENT: clear to auscultation harsh. ABSENT: rales, rhonchi, wheezes Cardiovascular exam: PRESENT: RRR. ABSENT: diastolic murmur, rubs, systolic murmur Pulses: PRESENT: normal dorsalis pedis pul Vascular exam: PRESENT: normal capillary refill GI/Abdominal exam: PRESENT: normal bowel sounds, soft. ABSENT: distended, guarding, mass, organolmegaly, rebound, tenderness Rectal exam: PRESENT: deferred Extremities exam: PRESENT: full ROM. ABSENT: calf tenderness, clubbing, pedal edema Neurological exam: PRESENT: alert, awake, oriented to time, oriented to situation. ABSENT: motor sensory deficit Psychiatric exam: PRESENT: appropriate affect, normal mood. ABSENT: homicidal ideation, suicidal ideation Skin exam: PRESENT: dry, intact, warm. ABSENT: cyanosis, rash Results Laboratory Results: 05/23/18 04:08 05/23/18 04:08 05/23/18 05/23/18 04:08 04:08 WBC 10.1 RBC 3.72 L Hgb 11.7 L Hct 33.8 L MCV 91 MCH 31.5 MCHC 34.6 RDW 14.0 Plt Count 213 Seg Neutrophils % 78.7 H Lymphocytes % 11.2 L Monocytes % 7.6 Eosinophils % 1.9 Basophils % 0.6 Absolute Neutrophils 8.0 Absolute Lymphocytes 1.1 Absolute Monocytes 0.8 Absolute Eosinophils 0.2 Absolute Basophils 0.1 Sodium 139.0 Potassium 3.1 L Chloride 99 Carbon Dioxide 30 Anion Gap 10 BUN 6 L Creatinine 0.68 Est GFR ( Amer) > 60 Est GFR (Non-Af Amer) > 60 Glucose 101 Calcium 8.4 Impressions: Chest X-Ray 05/22/18 13:27 IMPRESSION: No acute findings Head CT 05/22/18 15:12 IMPRESSION: CHRONIC CHANGES OF ATROPHY AND MICROVASCULAR ISCHEMIA. 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 NO ACUTE PROCESS. EVIDENCE OF ACUTE STROKE: NO. Assessment & Plan - Diagnosis (1) Altered mental status Qualifiers: Altered mental status type: disorientation Qualified Code(s): R41.0 - Disorientation, unspecified Is this a current diagnosis for this admission?: Yes Plan: Currently patient is at his baseline. (2) Diabetes mellitus Qualifiers: Diabetes mellitus type: type 2 Is this a current diagnosis for this admission?: Yes Plan: Shins on sliding scale his blood glucose is well controlled and I resumed also his metformin. (3) CAD (coronary artery disease) Qualifiers: Coronary Disease-Associated Artery/Lesion type: [place] artery Is this a current diagnosis for this admission?: Yes Plan: No angina. We will continue his home medications. (4) Seizure disorder Is this a current diagnosis for this admission?: Yes Plan: Patient recently diagnosed with seizure and has been on Keppra which is discontinued today by psych and he will be on Depakote. We will elevate his bed., Will monitor him for aspiration and seizure. (5) Hypothyroidism Qualifiers: Hypothyroidism type: acquired Qualified Code(s): E03.9 - Hypothyroidism, unspecified Is this a current diagnosis for this admission?: Yes Plan: Continue Synthroid
[2018-05-23] MEDS ORDERED: ENOXAPARIN SODIUM INJ 40 MG/0.4 ML DISP.SYRIN SUBCUT ONE (15:30)
[2018-05-23] MEDS ORDERED: GLUCAGON,HUMAN RECOMB 1 MG INJ IM PRN (20:00)
[2018-05-23] MEDS ORDERED: DEXTROSE 50%-WATER 25 GM/50 ML DISP.SYRIN IV PRN ×2 (20:00)
[2018-05-23] MEDS ORDERED: DEXTROSE 40% GEL 15 GM TUBE PO PRN ×2 (20:00)
[2018-05-23] MEDS ORDERED: HALOPERIDOL LACTATE INJ 5 MG/1 ML VIAL ONE (20:19)
[2018-05-23] MEDS ORDERED: LORAZEPAM INJ 2 MG/1 ML VIAL ONE (20:20)
[2018-05-23] MEDS ORDERED: HALOPERIDOL LACTATE INJ 5 MG/1 ML VIAL IV ONE (20:30)
[2018-05-23] MEDS ORDERED: LORAZEPAM INJ 2 MG/1 ML VIAL IV ONE (20:30)
[2018-05-23] MEDS ORDERED: (PENDING PHARMACY ID) (Donepezil Hcl [Aricept] 10 MG) PO SCH (22:00)
[2018-05-23] MEDS: DONEPEZIL HCL 5 MG TABLET PO SCH (23:51)
[2018-05-23] MEDS: ATORVASTATIN CALCIUM 20 MG TABLET PO SCH (23:52)
[2018-05-23] MEDS: METOPROLOL TARTRATE 25 MG TABLET PO SCH (23:53)
[2018-05-23] MEDS: INSULIN LISPRO 100 UNIT/ML 3 ML VIAL SUBCUT PRN (23:55)
--- NOTE | 2018-05-24 07:58 | PDOC TRANSFER SUMMARY ---
General - Admit/Disc Date/PCP Admission Date/Primary Care Provider: 05/22/18 18:32 Discharge Date: 05/24/18 - Discharge Diagnosis (1) Altered mental status Is this a current diagnosis for this admission?: Yes (2) Diabetes mellitus Is this a current diagnosis for this admission?: Yes (3) CAD (coronary artery disease) Is this a current diagnosis for this admission?: Yes (4) Seizure disorder Is this a current diagnosis for this admission?: Yes (5) Hypothyroidism Is this a current diagnosis for this admission?: Yes - Additional Information Resuscitation Status: Do Not Resuscitate Discharge Activity: Activity As Tolerated Prescriptions: Buspirone HCl [Buspar 10 mg Tablet] 10 mg PO Q12 #60 tablet Valproate Sodium [Depakene Syrup 250 mg/5 ml Udcup] 500 mg PO Q12 #60 cap Home Medications: Acetaminophen [Tylenol Extra Strength 500 mg Tablet] 500 mg PO Q4HP PRN Amlodipine Besylate [Norvasc 5 mg Tablet] 5 mg PO DAILY 01/01/18 Aspirin [Aspirin EC] 81 mg PO DAILY 01/01/18 Atorvastatin Calcium [Lipitor 20 mg Tablet] 20 mg PO QHS 01/01/18 Cholecalciferol (Vitamin D3) [Vitamin D3 2000 unit Tablet] 2,000 unit PO DAILY 01/01/18 Clopidogrel Bisulfate [Plavix 75 mg Tablet] 75 mg PO DAILY 01/01/18 Cyanocobalamin (Vitamin B-12) [Vitamin B-12] 1,000 mcg PO DAILY 01/01/18 Donepezil HCl [Aricept] 10 mg PO QHS 01/01/18 Glipizide [Glucotrol 10 mg Tablet] 10 mg PO DAILY 01/01/18 Insulin Aspart [Novolog Insulin (Aspart) 100 unit/mL] See Protocol SQ ACHS 01/01 Loperamide HCl [Loperamide] 2 mg PO DAILYP PRN 01/01/18 Losartan Potassium [Cozaar 100 mg Tablet] 100 mg PO DAILY 01/01/18 Magnesium Hydroxide [Milk of Magnesia 30 ml Udcup] 30 ml PO HSP PRN 01/01/18 Meclizine HCl [Antivert 25 mg Tablet] 25 mg PO Q8HP PRN 01/01/18 Metoprolol Tartrate [Lopressor 25 mg Tablet] 25 mg PO Q12 01/01/18 Multivitamin [One-A-Day Essential] 1 tab PO DAILY 05/22/18 Buspirone HCl [Buspar 10 mg Tablet] 10 mg PO Q12 #60 tablet 05/24/18 Valproate Sodium [Depakene Syrup 250 mg/5 ml Udcup] 500 mg PO Q12 #60 cap History of Present Illness Admission Date/PCP: 05/22/18 18:32 History of Present Illness: RASHAAD EDOUARD is a 72 year old male patient with past medical history of CAD, hyperlipidemia, hypothyroidism, Alzheimer's dementia, hypertension, recent diagnosis of seizure and diabetes mellitus who is [facility] resident today for altered mental status. Based on when he arrived to ER patient is aggressive and agitated and combative so they put four-point soft restraints. Patient has been evaluated by psych and they discontinued his home medication which includes Haldol, lorazepam, Keppra, Prozac, trazodone recommended to start him on Depakote, BuSpar and clonidine. Further detailed history and review of systems unobtainable because of patient's cognitive impairment and agitation. Hospital Course Hospital Course: Mr. Edouard is a 6 series old male patient who is a resident of [facility] brought by EMS with chief complaint of altered mental status agitation and combative behavior. His medications were reviewed by psych and they discontinued the Haldol, Keppra, trazodone, Prozac and Ativan. The above- mentioned medications are most probably the culprit to participate his altered mental status and agitation. It is also started patient has been started on BuSpar 10 mg twice daily and Depakote 500 mg twice daily. The next morning patient's conditions are remarkably improved he is awake alert less agitated and conversant. His 4 point restraints were removed while he was at ER. This morning I seen patient resting in bed comfortably his not in pain or distress he is awake alert and communicative. Patient is good to go. Physical Exam Vital Signs: Temp Pulse Resp BP Pulse Ox 98.5 F 119 H 18 173/97 H 97 05/23/18 20:20 05/23/18 20:20 05/23/18 20:20 05/23/18 20:20 05/23/18 20:20 Intake & Output 05/23/18 05/24/1818 06:59 06:59 06:59 Intake Total 2000 Balance 2000 Weight 95.1 kg General appearance: PRESENT: no acute distress, well-developed, well-nourished Head exam: PRESENT: atraumatic, normocephalic Eye exam: PRESENT: conjunctiva pink, EOMI, PERRLA. ABSENT: scleral icterus Ear exam: PRESENT: normal external ear exam Mouth exam: PRESENT: moist, tongue midline Neck exam: ABSENT: carotid bruit, JVD, lymphadenopathy, thyromegaly Respiratory exam: PRESENT: clear to auscultation harsh. ABSENT: rales, rhonchi, wheezes Cardiovascular exam: PRESENT: RRR. ABSENT: diastolic murmur, rubs, systolic murmur Pulses: PRESENT: normal dorsalis pedis pul Vascular exam: PRESENT: normal capillary refill GI/Abdominal exam: PRESENT: normal bowel sounds, soft. ABSENT: distended, guarding, mass, organolmegaly, rebound, tenderness Rectal exam: PRESENT: deferred Extremities exam: PRESENT: full ROM. ABSENT: calf tenderness, clubbing, pedal edema Neurological exam: PRESENT: alert, awake, oriented to person, oriented to place. ABSENT: motor sensory deficit Psychiatric exam: PRESENT: appropriate affect, normal mood. ABSENT: homicidal ideation, suicidal ideation Skin exam: PRESENT: dry, intact, warm. ABSENT: cyanosis, rash Results Laboratory Results: 05/23/18 04:08 05/23/18 04:08 Impressions: Chest X-Ray 05/22/18 13:27 IMPRESSION: No acute findings Head CT 05/22/18 15:12 IMPRESSION: CHRONIC CHANGES OF ATROPHY AND MICROVASCULAR ISCHEMIA. 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 NO ACUTE PROCESS. EVIDENCE OF ACUTE STROKE: NO. Qualifiers - * PATIENT BEING DISCHARGED WITH ANY OF THE FOLLOWING DIAGNOSIS: No
[2018-05-24] MEDS ORDERED: (PENDING PHARMACY ID) (Cholecalciferol (Vitamin D3) [Vitamin D3 2000 Unit Tablet] 2,000 UN PO SCH (10:00)
[2018-05-24] MEDS: ENOXAPARIN SODIUM INJ 40 MG/0.4 ML DISP.SYRIN SUBCUT SCH (10:15)
[2018-05-24] MEDS: AMLODIPINE BESYLATE 5 MG TABLET PO SCH (10:23)
[2018-05-24] MEDS: ASPIRIN 81 MG TABLET, ENT COATED PO SCH (10:23)
[2018-05-24] MEDS: CHOLECALCIFEROL (D3) 1,000 UNIT TABLET PO SCH (10:24)
[2018-05-24] MEDS: BUSPIRONE HCL 10 MG TABLET PO SCH ×2 (10:24→21:31)
[2018-05-24] MEDS: CYANOCOBALAMIN (VITAMIN B-12) 1,000 MCG TABLET PO SCH (10:24)
[2018-05-24] MEDS: CLOPIDOGREL BISULFATE 75 MG TABLET PO SCH (10:24)
[2018-05-24] MEDS: GLIPIZIDE 10 MG TABLET PO SCH (10:24)
[2018-05-24] MEDS: LOSARTAN POTASSIUM 50 MG TABLET PO SCH (10:25)
[2018-05-24] MEDS: VALPROATE SODIUM SYRUP 250 MG/5 ML UDCUP PO SCH ×2 (10:25→21:29)
[2018-05-24] MEDS: MULTIVITAMIN TABLET PO SCH (10:25)
[2018-05-24] MEDS: METOPROLOL TARTRATE 25 MG TABLET PO SCH ×2 (10:25→21:30)
[2018-05-24] MEDS: ACETAMINOPHEN 325 MG TABLET PO PRN (12:09)
[2018-05-24 17:00] LABS: ANION GAP 16 (5-19); BLOOD UREA NITROGEN 12 mg/dL (7-20); CALCIUM 9.5 mg/dL (8.4-10.2); CARBON DIOXIDE 29 mmol/L (22-30); CHLORIDE 95 mmol/L (98-107); GLUCOSE 255 mg/dL (75-110); POTASSIUM 4.1 mmol/L (3.6-5.0)
[2018-05-24] MEDS: ATORVASTATIN CALCIUM 20 MG TABLET PO SCH (21:30)
[2018-05-24] MEDS: DONEPEZIL HCL 5 MG TABLET PO SCH (21:30)
[2018-05-25] MEDS: ENOXAPARIN SODIUM INJ 40 MG/0.4 ML DISP.SYRIN SUBCUT SCH (08:21)
[2018-05-25] MEDS: AMLODIPINE BESYLATE 5 MG TABLET PO SCH (09:16)
[2018-05-25] MEDS: ASPIRIN 81 MG TABLET, ENT COATED PO SCH (09:16)
[2018-05-25] MEDS: VALPROATE SODIUM SYRUP 250 MG/5 ML UDCUP PO SCH (09:17)
[2018-05-25] MEDS: CLOPIDOGREL BISULFATE 75 MG TABLET PO SCH (09:17)
[2018-05-25] MEDS: MULTIVITAMIN TABLET PO SCH (09:17)
[2018-05-25] MEDS: BUSPIRONE HCL 10 MG TABLET PO SCH (09:17)
[2018-05-25] MEDS: CHOLECALCIFEROL (D3) 1,000 UNIT TABLET PO SCH (09:17)
[2018-05-25] MEDS: LOSARTAN POTASSIUM 50 MG TABLET PO SCH (09:17)
[2018-05-25] MEDS: METOPROLOL TARTRATE 25 MG TABLET PO SCH (09:17)
[2018-05-25] MEDS: CYANOCOBALAMIN (VITAMIN B-12) 1,000 MCG TABLET PO SCH (09:17)
[2018-05-25] MEDS: GLIPIZIDE 10 MG TABLET PO SCH (09:18)
[2018-05-25] MEDS ORDERED: INSULIN LISPRO 100 UNIT/ML 3 ML VIAL SUBCUT ONE (11:32)
[2018-05-25] MEDS: INSULIN LISPRO 100 UNIT/ML 3 ML VIAL SUBCUT PRN (11:32)
--- NOTE | 2018-05-25 11:35 | Progress Note ---
Provider Note Provider Note: This is brief addendum to discharge summary I dictated for Mr. Leong. Patient was discharged yesterday but the halfway. Accept him because his potassium is low and has hyperglycemia. This morning his potassium is 4.1 and he is able to Eliquis 175. Patient is awake alert and oriented and he is not agitated.
[2018-05-25 12:11] VITALS: BP 150/74
[2018-05-25] MEDS: ACETAMINOPHEN 325 MG TABLET PO PRN (13:37)
== END 2018-05-25 15:12 | disposition short-term general hospital (02) ==
LOC: ER 13:20 → EH 18:32 → 4N 22:39
PROVIDERS: ADMIT Internal Medicine; ATTEND Internal Medicine
DX: R41.0 Disorientation, unspecified (principal); E87.6 Hypokalemia; G30.8 Other Alzheimer's disease; F02.81 Dementia in other diseases classified elsewhere, unspecified severity, with behavioral disturbance; G40.909 Epilepsy, unspecified, not intractable, without status epilepticus; E11.9 Type 2 diabetes mellitus without complications; I10 Essential (primary) hypertension; I25.2 Old myocardial infarction; I25.10 Atherosclerotic heart disease of native coronary artery without angina pectoris; E03.9 Hypothyroidism, unspecified
CPT/HCPCS: 96376; 99285; 96375; 96365; 36415 ×3; 87086; 82553; 82962 ×3; 80307 ×4; 82140; 82550; 84443; 85025 ×2; 80048 ×2; 80053; 81001; 84484; 83605; 83880; 71045; 70450; 93005; 93010; G0378 ×5; A9270 ×29; J1200; J1630 ×2; J2060 ×2; J3490; J1953

== ENCOUNTER 2018-05-28 08:29 | Emergency (ER) | payer MEDICARE, MEDICAID ==
--- NOTE | 2018-05-28 08:40 | ER Document Report ---
ED General - General Stated Complaint: POSSIBLE SEIZURE Time Seen by Provider: 05/28/18 08:35 Mode of Arrival: Medic Information source: Patient Cannot obtain history due to: Dementia Notes: 72-year-old male with dementia with no seizure hx presents with complaints of a shaking episode while standing at the counter. pt did not lose consciousness, is at his baseline, denies any concerns at this time TRAVEL OUTSIDE OF THE [place] IN LAST 30 DAYS: No - HPI Onset: Just prior to arrival Onset/Duration: Sudden Quality of pain: No pain Severity: None Pain Level: Denies Associated symptoms: Other Exacerbated by: Denies Relieved by: Denies Similar symptoms previously: No Recently seen / treated by doctor: No - Related Data Allergies/Adverse Reactions: No Known Allergies Allergy (Verified 05/11/18 09:39) Past Medical History - Social History Smoking Status: Never Smoker Cigarette use (# per day): No Chew tobacco use (# tins/day): No Smoking Education Provided: No Family History: Reviewed & Not Pertinent - Past Medical History Cardiac Medical History: Reports: Hx Coronary Artery Disease, Hx Heart Attack, Hx Hypercholesterolemia, Hx Hypertension Pulmonary Medical History: Reports: Hx Pneumonia Denies: Hx Tuberculosis Neurological Medical History: Reports: Hx Seizures - "several" per pt's son Endocrine Medical History: Reports: Hx Diabetes Mellitus Type 1, Hx Diabetes Mellitus Type 2, Hx Hypothyroidism Renal/ Medical History: Denies: Hx Peritoneal Dialysis Musculoskeltal Medical History: Reports Hx Arthritis Psychiatric Medical History: Reports: Hx Anxiety, Hx Dementia, Hx Depression Traumatic Medical History: Reports: Hx Fractures - left arm childhood Past Surgical History: Reports: Hx Cardiac Catheterization - Stent x3, Hx Cholecystectomy, Hx Coronary Stent. Denies: Hx Pacemaker - Immunizations Immunizations up to date: Yes Hx Diphtheria, Pertussis, Tetanus Vaccination: No Hx Pneumococcal Vaccination: 09/20/10 Review of Systems - Review of Systems Notes: REVIEW OF SYSTEMS: per care facility CONSTITUTIONAL : Denies fever, chills, or sweats. Denies recent illness. EENT: Denies eye, ear, throat, or mouth pain or symptoms. Denies nasal or sinus congestion or discharge. Denies throat, tongue, or mouth swelling or difficulty swallowing. CARDIOVASCULAR: Denies chest pain. Denies palpitations or racing or irregular heart beat. Denies ankle edema. RESPIRATORY: Denies cough, cold, or chest congestion. Denies shortness of breath, difficulty breathing, or wheezing. GASTROINTESTINAL: Denies abdominal pain or distention. Denies nausea, vomiting , or diarrhea. Denies blood in vomitus, stools, or per rectum. Denies black, tarry stools. Denies constipation. GENITOURINARY: Denies difficulty urinating, painful urination, burning, frequency, blood in urine, or discharge. MUSCULOSKELETAL: Denies back or neck pain or stiffness. Denies joint pain or swelling. SKIN: Denies rash, lesions or sores. HEMATOLOGIC : Denies easy bruising or bleeding. LYMPHATIC: Denies swollen, enlarged glands. NEUROLOGICAL: shaking episode PSYCHIATRIC: Denies anxiety or stress. Denies depression, suicidal ideation, or homicidal ideation. ALL OTHER SYSTEMS REVIEWED AND NEGATIVE. Dictation was performed using [employer] voice recognition software PHYSICAL EXAMINATION: GENERAL: Well-appearing, well-nourished and in no acute distress. HEAD: Atraumatic, normocephalic. EYES: Pupils equal round and reactive to light, extraocular movements intact, sclera anicteric, conjunctiva are normal. ENT: Nares patent, oropharynx clear without exudates. Moist mucous membranes. NECK: Normal range of motion, supple without lymphadenopathy LUNGS: Breath sounds clear to auscultation bilaterally and equal. No wheezes rales or rhonchi. HEART: Regular rate and rhythm without murmurs ABDOMEN: Soft, nontender, nondistended abdomen. No guarding, no rebound. No masses appreciated. Musculoskeletal: Normal range of motion, no pitting or edema. No cyanosis. NEUROLOGICAL: Cranial nerves grossly intact. Normal speech. Normal sensory, motor exams PSYCH: Normal mood, normal affect. SKIN: Ecchymosis right antecubital from previous IV access Physical Exam - Vital signs Vitals: Temp Pulse Resp BP Pulse Ox 97.9 F 99 18 160/91 H 95 05/28/18 08:34 05/28/18 08:34 05/28/18 08:34 05/28/18 08:34 05/28/18 08:34 Course - Re-evaluation Re-evalutation: 05/28/18 08:39 Patient is pleasantly demented, denies any complaints, obviously the patient did not seize if he was standing awake and was just shaking his blood sugar was 235 I feel it is inappropriate to do further testing for an episode that does not appear to have any life-threatening issues Patient is on valproic acid After performing a Medical Screening Examination, I estimate there is LOW risk for INTRACRANIAL HEMORRHAGE, ISCHEMIC CVA, MALIGNANT DYSRHYTHMIA, ACUTE CORONARY SYNDROME, MENINGITIS, PULMONARY EMBOLISM, or SEPSIS thus I consider the discharge disposition reasonable. I have reevaluated this patient multiple times and no significant life threatening changes are noted. The patient and I have discussed the diagnosis and risks, and we agree with discharging home with close follow-up with the understanding that symptoms and presentations can change. We also discussed returning to the Emergency Department immediately if new or worsening symptoms occur. We have discussed the symptoms which are most concerning (e.g., changing or worsening pain, weakness, vomiting, fever) that necessitate immediate return. - Vital Signs Vital signs: Temp Pulse Resp BP Pulse Ox 97.9 F 99 18 160/91 H 95 05/28/18 08:34 05/28/18 08:34 05/28/18 08:34 05/28/18 08:34 05/28/18 08:34 Discharge - Discharge Clinical Impression: Seizure disorder Condition: Stable Disposition: HOME, SELF-CARE Additional Instructions: Follow up with your physician tomorrow for further care or return to the ED IMMEDIATELY if symptoms worsen or new concerns occur. If you cannot afford to follow up with your primary care physician a list of low cost clinics have been provided at the end of your discharge papers as well.
[2018-05-28 09:24] VITALS: BP 124/78
== END 2018-05-28 09:24 | disposition home or self-care (01) ==
LOC: ER 08:29
DX: G40.909 Epilepsy, unspecified, not intractable, without status epilepticus (principal); F03.90 Unspecified dementia, unspecified severity, without behavioral disturbance, psychotic disturbance, mood disturbance, and anxiety; I25.10 Atherosclerotic heart disease of native coronary artery without angina pectoris; I10 Essential (primary) hypertension; E11.9 Type 2 diabetes mellitus without complications
CPT/HCPCS: 99284

== ENCOUNTER 2018-05-30 14:19 | Emergency (ER) | payer MEDICARE, MEDICAID ==
[2018-05-30] MEDS ORDERED: OLANZAPINE 5 MG TABLET PO ONE (14:56)
--- NOTE | 2018-05-30 14:56 | ER Document Report ---
ED General - General Stated Complaint: PSYCH EVAL Time Seen by Provider: 05/30/18 14:32 TRAVEL OUTSIDE OF THE [place] IN LAST 30 DAYS: No - HPI Patient complains to provider of: IVC Notes: 72-year-old man with lengthy history of Alzheimer's dementia presents from his correction. skilled nursing states they can no longer take care of him secondary advanced dementia. He is not in the locked unit. They initiated IVC paperwork on the patient. They state patient is suicidal. On very aggressive with staff. On my evaluation patient denies any suicidal or issue. Very amiable at baseline. He son bedside states he does not think his father is mentally ill and is just as Alzheimer's. Patient denies all physical complaints but he is an unreliable review of systems secondary to advanced dementia. Patient has been seen multiple times in the emergency department for this underlying condition. At this time the patient arrives with discharge paperwork from the correction and they are refusing to take him back. - Related Data Allergies/Adverse Reactions: No Known Allergies Allergy (Verified 05/11/18 09:39) Past Medical History - Social History Smoking Status: Unknown if Ever Smoked Family History: Reviewed & Not Pertinent - Past Medical History Cardiac Medical History: Reports: Hx Coronary Artery Disease, Hx Heart Attack, Hx Hypercholesterolemia, Hx Hypertension Pulmonary Medical History: Reports: Hx Pneumonia Denies: Hx Tuberculosis Neurological Medical History: Reports: Hx Seizures - "several" per pt's son Endocrine Medical History: Reports: Hx Diabetes Mellitus Type 1, Hx Diabetes Mellitus Type 2, Hx Hypothyroidism Renal/ Medical History: Denies: Hx Peritoneal Dialysis Musculoskeletal Medical History: Reports Hx Arthritis Psychiatric Medical History: Reports: Hx Anxiety, Hx Dementia, Hx Depression Traumatic Medical History: Reports: Hx Fractures - left arm childhood Past Surgical History: Reports: Hx Cardiac Catheterization - Stent x3, Hx Cholecystectomy, Hx Coronary Stent. Denies: Hx Pacemaker - Immunizations Immunizations up to date: Yes Hx Diphtheria, Pertussis, Tetanus Vaccination: No Hx Pneumococcal Vaccination: 09/20/10 Review of Systems - Review of Systems -: Yes ROS unobtainable due to patient's medical condition - Dementia Physical Exam - Vital signs Vitals: Temp Pulse Resp BP Pulse Ox 97.8 F 80 16 151/76 H 97 05/31/18 08:26 05/31/18 08:26 05/31/18 08:26 05/31/18 08:26 05/31/18 08:26 - Notes Notes: PHYSICAL EXAMINATION: GENERAL: Well-appearing, well-nourished and in no acute distress. HEAD: Atraumatic, normocephalic. EYES: Pupils equal round and reactive to light, extraocular movements intact, sclera anicteric, conjunctiva are normal. ENT: nares patent, oropharynx clear without exudates. Moist mucous membranes. NECK: Normal range of motion, supple without lymphadenopathy LUNGS: Breath sounds clear to auscultation bilaterally and equal. No wheezes rales or rhonchi. HEART: Regular rate and rhythm without murmurs ABDOMEN: Soft, nontender, normoactive bowel sounds. No guarding, no rebound. No masses appreciated. EXTREMITIES: Normal range of motion, no pitting or edema. No cyanosis. NEUROLOGICAL: Cranial nerves grossly intact. Normal speech, normal gait. Normal sensory and motor exams. PSYCH: Normal mood, normal affect. SKIN: Warm, Dry, normal turgor, no rashes or lesions noted. Course - Re-evaluation Re-evalutation: 05/30/18 16:02 Patient presents to the emergency department with altered commitment paperwork. Psychiatry consult. Psychiatry does not think patient needs admission criteria due to underlying Alzheimer's dementia. Patient's extensive lab workup relatively unremarkable. Patient is given initial dose of olanzapine in the [facility] to ensure non-combative to staff. Patient will be requiring placement. Consult discharge planning. - Vital Signs Vital signs: Temp Pulse Resp BP Pulse Ox 97.8 F 80 16 151/76 H 97 05/31/18 08:26 05/31/18 08:26 05/31/18 08:26 05/31/18 08:26 05/31/18 08:26 - Laboratory Result Diagrams: 05/30/18 15:23 05/30/18 15:23 Laboratory results interpreted by me: 05/30/18 05/30/18 15:23 15:23 WBC 11.2 H RBC 3.76 L Hgb 11.6 L Hct 34.4 L Potassium 3.3 L Chloride 91 L Carbon Dioxide 34 H Glucose 161 H Discharge - Discharge Clinical Impression: Dementia Qualifiers: Dementia type: Alzheimer's disease Alzheimer's disease onset: unspecified onset Dementia behavioral disturbance: with behavioral disturbance Qualified Code(s): G30.9 - Alzheimer's disease, unspecified Disposition: Tertiary-Other
--- NOTE | 2018-05-30 15:15 | PSYCHOLOGICAL NOTE ---
Psych Note - Psych Note Psych Note: Reason for Consult: medication recommendations 72-year-old male with a history of dementia, Alzheimer's and newly diagnosed seizure disorder who is a resident at [facility] presents via [facility] under IVC. Information was provided at time of patient arriving to the ED. [facility] has stated the patient has been discharged from their facility. Medication recommendations per [facility] contracted psychiatrist Dr. Janelle PINEDA are as follows 1. Please discontinue home medications of Haldol, Wellbutrin, lorazepam, trazodone, Prozac, and Keppra 2. Please increase Depakote to 500 mg twice daily 3. Please start BuSpar 5 mg every morning and 10 mg nightly 4. Please start Clonidine 0.1mg 24 hour patch 5. Propranolol 10 mg once Impression\plan: Patient is cleared from acute psychiatric services. Medication recommendations have been provided. Patient has advanced Alzheimer' s. Patient was seen by the behavioral health team on 05/22/2018, there are no current changes to the original medication recommendations. Dr. Navarrete was consulted and the care management this patient; attending physician is agreement with recommendations and disposition.
[2018-05-30 15:59] LABS: ABSOLUTE BASOPHILS # (AUTO) 0.1 10^3/uL (0.0-0.2); ABSOLUTE EOSINOPHILS # (AUTO) 0.4 10^3/uL (0.0-0.6); ABSOLUTE MONOCYTES (AUTO) 0.9 10^3/uL (0.1-1.4); ABSOLUTE NEUT (AUTO) 7.7 10^3/uL (1.7-8.2); BASOPHILS % (AUTO) 0.9 % (0-2); EOSINOPHILS % (AUTO) 3.9 % (0-6); HEMATOCRIT 34.4 % (37.9-51.0); HEMOGLOBIN 11.6 g/dL (13.5-17.0); LYMPHOCYTES % (AUTO) 17.6 % (13-45); MEAN CORPUSCULAR HEMOGLOBIN 30.9 pg (27.0-33.4); MEAN CORPUSCULAR HGB CONC 33.8 g/dL (32.0-36.0); MEAN CORPUSCULAR VOLUME 92 fl (80-97); MONOCYTES % (AUTO) 8.4 % (3-13); PLATELET COUNT 247 10^3/uL (150-450); RED BLOOD COUNT 3.76 10^6/uL (4.35-5.55); SEGMENTED NEUTROPHILS % (AUTO) 69.2 % (42-78); TOTAL CELLS COUNTED % (AUTO) 100 %; WHITE BLOOD COUNT 11.2 10^3/uL (4.0-10.5)
[2018-05-30 16:23] LABS: ALANINE AMINOTRANSFERASE 53 U/L (21-72); ALBUMIN 3.6 g/dL (3.5-5.0); ALKALINE PHOSPHATASE 72 U/L (38-126); ANION GAP 12 (5-19); ASPARTATE AMINO TRANSFERASE 56 U/L (17-59); BILIRUBIN,DIRECT 0.3 mg/dL (0.0-0.4); BILIRUBIN,TOTAL 0.4 mg/dL (0.2-1.3); BLOOD UREA NITROGEN 7 mg/dL (7-20); CALCIUM 9.2 mg/dL (8.4-10.2); CARBON DIOXIDE 34 mmol/L (22-30); CHLORIDE 91 mmol/L (98-107); GLUCOSE 161 mg/dL (75-110); POTASSIUM 3.3 mmol/L (3.6-5.0); SODIUM 137.4 mmol/L (137-145); TOTAL PROTEIN 6.7 g/dL (6.3-8.2)
[2018-05-30] MEDS ORDERED: LOPERAMIDE HCL 2 MG CAPSULE PO PRN (17:48)
[2018-05-30] MEDS ORDERED: (PENDING PHARMACY ID) (Acetaminophen [Tylenol Extra Strength 500 Mg Tablet] 500 MG) PO PRN (17:48)
[2018-05-30] MEDS ORDERED: INSULIN ASPART SQ SCH (22:00)
[2018-05-30] MEDS: DONEPEZIL HCL 5 MG TABLET PO SCH (22:30)
[2018-05-30] MEDS: BUSPIRONE HCL 10 MG TABLET PO SCH (22:30)
[2018-05-30] MEDS: ATORVASTATIN CALCIUM 20 MG TABLET PO SCH (22:30)
[2018-05-30] MEDS: VALPROATE SODIUM SYRUP 250 MG/5 ML UDCUP PO SCH (22:30)
[2018-05-31] MEDS: AMLODIPINE BESYLATE 5 MG TABLET PO SCH (09:15)
[2018-05-31] MEDS: GLIPIZIDE 10 MG TABLET PO SCH (09:16)
[2018-05-31] MEDS: CHOLECALCIFEROL (D3) 1,000 UNIT TABLET PO SCH (09:16)
[2018-05-31] MEDS: BUSPIRONE HCL 10 MG TABLET PO SCH (09:17)
[2018-05-31] MEDS: VALPROATE SODIUM SYRUP 250 MG/5 ML UDCUP PO SCH (09:20)
[2018-05-31] MEDS: CYANOCOBALAMIN (VITAMIN B-12) 1,000 MCG TABLET PO SCH (09:35)
[2018-05-31] MEDS: LOSARTAN POTASSIUM 50 MG TABLET PO SCH (09:35)
--- NOTE | 2018-05-31 10:23 | ER Document Report ---
Doctor's Note Notes: 05/31/18 10:20 Rounds: Chart reviewed and patient interviewed. Patient's mental status is consistent with Alzheimer's and dementia. He apparently was dismissed from [facility] and sent here yesterday. He is apparently somewhat physical with patients and staff at [facility] and acting out sexually, as well. Patient also has a history of seizure disorder. Vital signs are all essentially normal. Lab studies were essentially normal. Patient will need to be placed in some permanent facility. Discharge planning has been contacted to help in finding a facility for this patient. patient appears to be medically stable for transfer or discharge. Jaqueline Huitron MD 05/31/18 19:00 Patient is reportedly acting out and not cooperating and refusing to take his medications, spitting pills out. He is talking in gibberish and I can understand anything he is saying but he is agitated. I ordered 2 mg of Haldol IM, but he did not receive it until about 20 minutes ago and that has not had time for any effect. I have now ordered 2 mg of Ativan IM and 25 mg of Benadryl IM. I think this will be sufficient sedation, but may have to go to something additional Jaqueline Huitron MD
[2018-05-31] MEDS: HALOPERIDOL 1 MG TABLET PO PRN ×2 (11:30→17:19)
[2018-05-31] MEDS ORDERED: HALOPERIDOL LACTATE INJ 5 MG/1 ML VIAL IM ONE (18:16)
[2018-05-31] MEDS ORDERED: LORAZEPAM INJ 2 MG/1 ML VIAL ONE (18:57)
[2018-05-31] MEDS ORDERED: LORAZEPAM INJ 2 MG/1 ML VIAL IM ONE (18:57)
[2018-05-31] MEDS ORDERED: DIPHENHYDRAMINE HCL 50 MG/ML VIAL ONE (18:58)
[2018-05-31] MEDS ORDERED: DIPHENHYDRAMINE HCL 50 MG/ML VIAL IM ONE (18:58)
[2018-06-01] MEDS: ATORVASTATIN CALCIUM 20 MG TABLET PO SCH
[2018-06-01] MEDS: DONEPEZIL HCL 5 MG TABLET PO SCH
[2018-06-01] MEDS: LOSARTAN POTASSIUM 50 MG TABLET PO SCH (10:00)
[2018-06-01] MEDS: CHOLECALCIFEROL (D3) 1,000 UNIT TABLET PO SCH (10:00)
[2018-06-01] MEDS: CYANOCOBALAMIN (VITAMIN B-12) 1,000 MCG TABLET PO SCH (10:01)
[2018-06-01] MEDS: AMLODIPINE BESYLATE 5 MG TABLET PO SCH (10:01)
[2018-06-01] MEDS: GLIPIZIDE 10 MG TABLET PO SCH (10:01)
[2018-06-01] MEDS: BUSPIRONE HCL 10 MG TABLET PO SCH ×2 (10:01)
[2018-06-01] MEDS: VALPROATE SODIUM SYRUP 250 MG/5 ML UDCUP PO SCH ×2 (10:02)
--- NOTE | 2018-06-01 10:18 | ER Document Report ---
Doctor's Note Notes: 06/01/18 10:17 Patient's records were reviewed. Today he is standing in the doorway, ready to meet and greet anyone who will come in. He is pleasant, alert, demented talks about getting a job at the retirement. He would like to return to [facility] where he was living prior to being sent over here. He is presently waiting on discharge planning to make arrangements for where he will go to live. 06/01/18 16:58 Patient will remain in the emergency room through the weekend on a social hold waiting for placement in a locked facility due to his worsening dementia and behavioral problems.
[2018-06-02] MEDS: VALPROATE SODIUM SYRUP 250 MG/5 ML UDCUP PO SCH ×3 (00:58→21:21)
[2018-06-02] MEDS: DONEPEZIL HCL 5 MG TABLET PO SCH ×2 (02:32→21:20)
[2018-06-02] MEDS: ATORVASTATIN CALCIUM 20 MG TABLET PO SCH ×2 (02:32→21:20)
[2018-06-02] MEDS: BUSPIRONE HCL 10 MG TABLET PO SCH ×3 (02:33→21:20)
[2018-06-02] MEDS: HALOPERIDOL 1 MG TABLET PO PRN (04:07)
--- NOTE | 2018-06-02 09:39 | ER Document Report ---
Doctor's Note Notes: 06/02/18 09:38 Patient remains on social hold through the weekend with hopes of finding placement for him on Monday. He is alert, reasonably oriented, seems a little more aggressive and less sociable today than he was yesterday. He is demented. He continues to remain stable for transfer to a lock-down type facility for dementia patients. 06/02/18 18:05 Medication changes recommended by Dr. Navarrete are to stop the prn Haldol, and start Risperdone 0.25 mg Q12 prn.
[2018-06-02] MEDS: CHOLECALCIFEROL (D3) 1,000 UNIT TABLET PO SCH (12:01)
[2018-06-02] MEDS: GLIPIZIDE 10 MG TABLET PO SCH (12:01)
[2018-06-02] MEDS: AMLODIPINE BESYLATE 5 MG TABLET PO SCH (12:01)
[2018-06-02] MEDS: CYANOCOBALAMIN (VITAMIN B-12) 1,000 MCG TABLET PO SCH (12:01)
[2018-06-02] MEDS: LOSARTAN POTASSIUM 50 MG TABLET PO SCH (12:13)
[2018-06-02] MEDS: RISPERIDONE 0.25 MG TABLET PO PRN (21:20)
--- NOTE | 2018-06-03 10:07 | ER Document Report ---
Doctor's Note Notes: 06/03/18 10:06 The patient does seem a little more pleasant today than he did yesterday, perhaps that is due to medication change. He continues to get up and walk to the doorway to try to interact with whomever walks by. Hopefully a facility will agree to take him tomorrow so that he can be discharged. He continues to remain medically stable for discharge to a lockdown type care facility.
[2018-06-03] MEDS: AMLODIPINE BESYLATE 5 MG TABLET PO SCH (10:19)
[2018-06-03] MEDS: LOSARTAN POTASSIUM 50 MG TABLET PO SCH (10:19)
[2018-06-03] MEDS: GLIPIZIDE 10 MG TABLET PO SCH (10:19)
[2018-06-03] MEDS: RISPERIDONE 0.25 MG TABLET PO PRN ×2 (10:19→22:04)
[2018-06-03] MEDS: CHOLECALCIFEROL (D3) 1,000 UNIT TABLET PO SCH (10:20)
[2018-06-03] MEDS: BUSPIRONE HCL 10 MG TABLET PO SCH ×2 (10:20→22:04)
[2018-06-03] MEDS: CYANOCOBALAMIN (VITAMIN B-12) 1,000 MCG TABLET PO SCH (11:31)
[2018-06-03] MEDS: VALPROATE SODIUM SYRUP 250 MG/5 ML UDCUP PO SCH ×2 (11:32→22:04)
[2018-06-03] MEDS: ATORVASTATIN CALCIUM 20 MG TABLET PO SCH (22:03)
[2018-06-03] MEDS: DONEPEZIL HCL 5 MG TABLET PO SCH (22:46)
[2018-06-04] MEDS ORDERED: DEXTROSE 40% GEL 15 GM TUBE X 2 PO PRN (09:42)
[2018-06-04] MEDS ORDERED: DEXTROSE 50%-WATER SYRINGE 12.5 GM/25 ML DOSE IV PRN (09:42)
[2018-06-04] MEDS ORDERED: INSULIN LISPRO 100 UNIT/ML 3 ML VIAL SUBCUT PRN (09:42)
[2018-06-04] MEDS ORDERED: DEXTROSE 50%-WATER SYRINGE 25 GM/50 ML DOSE IV PRN (09:42)
[2018-06-04] MEDS ORDERED: GLUCAGON,HUMAN RECOMB 1 MG INJ IM PRN (09:42)
[2018-06-04] MEDS ORDERED: DEXTROSE 40% GEL 15 GM TUBE PO PRN (09:42)
[2018-06-04] MEDS ORDERED: TUBERCULIN,PURIF.PROT.DERIV. 5 TU/0.1 ML TEST 1 ML VIAL ID ONE (10:00)
--- NOTE | 2018-06-04 10:00 | ER Document Report ---
Doctor's Note Notes: 06/04/18 09:59 Patient has history of dementia, he has now been here for approximately 100 hours, he is awaiting placement, I will reorder labs as they have not been performed in approximately 5 days, patient has been seen by myself previously he is at his baseline dementia state. He does become sexually aggressive towards staff members, at this time he is asking to be discharged but given that there is no placement he will be watched
[2018-06-04] MEDS: VALPROATE SODIUM SYRUP 250 MG/5 ML UDCUP PO SCH ×2 (10:08→21:41)
[2018-06-04] MEDS: BUSPIRONE HCL 10 MG TABLET PO SCH ×2 (10:09→21:39)
[2018-06-04] MEDS: CHOLECALCIFEROL (D3) 1,000 UNIT TABLET PO SCH (10:09)
[2018-06-04] MEDS: AMLODIPINE BESYLATE 5 MG TABLET PO SCH (10:09)
[2018-06-04] MEDS: LOSARTAN POTASSIUM 50 MG TABLET PO SCH (10:10)
[2018-06-04] MEDS: CYANOCOBALAMIN (VITAMIN B-12) 1,000 MCG TABLET PO SCH (10:10)
[2018-06-04] MEDS: GLIPIZIDE 10 MG TABLET PO SCH (10:10)
[2018-06-04] MEDS: RISPERIDONE 0.25 MG TABLET PO PRN ×2 (10:10→21:38)
[2018-06-04 10:32] LABS: ABSOLUTE BASOPHILS # (AUTO) 0.1 10^3/uL (0.0-0.2); ABSOLUTE EOSINOPHILS # (AUTO) 0.3 10^3/uL (0.0-0.6); ABSOLUTE LYMPHOCYTES (AUTO) 1.5 10^3/uL (0.5-4.7); ABSOLUTE MONOCYTES (AUTO) 0.9 10^3/uL (0.1-1.4); ABSOLUTE NEUT (AUTO) 8.2 10^3/uL (1.7-8.2); BASOPHILS % (AUTO) 0.6 % (0-2); EOSINOPHILS % (AUTO) 2.7 % (0-6); HEMATOCRIT 36.2 % (37.9-51.0); HEMOGLOBIN 12.4 g/dL (13.5-17.0); LYMPHOCYTES % (AUTO) 13.2 % (13-45); MEAN CORPUSCULAR HEMOGLOBIN 31.7 pg (27.0-33.4); MEAN CORPUSCULAR HGB CONC 34.4 g/dL (32.0-36.0); MEAN CORPUSCULAR VOLUME 92 fl (80-97); MONOCYTES % (AUTO) 8.3 % (3-13); PLATELET COUNT 272 10^3/uL (150-450); RED BLOOD COUNT 3.93 10^6/uL (4.35-5.55); SEGMENTED NEUTROPHILS % (AUTO) 75.2 % (42-78); TOTAL CELLS COUNTED % (AUTO) 100 %
[2018-06-04 10:51] LABS: ALANINE AMINOTRANSFERASE 37 U/L (21-72); ALKALINE PHOSPHATASE 78 U/L (38-126); ANION GAP 14 (5-19); ASPARTATE AMINO TRANSFERASE 35 U/L (17-59); BILIRUBIN,DIRECT 0.2 mg/dL (0.0-0.4); BILIRUBIN,TOTAL 0.3 mg/dL (0.2-1.3); BLOOD UREA NITROGEN 7 mg/dL (7-20); CALCIUM 9.6 mg/dL (8.4-10.2); CARBON DIOXIDE 31 mmol/L (22-30); CHLORIDE 96 mmol/L (98-107); GLUCOSE 258 mg/dL (75-110); SODIUM 141.2 mmol/L (137-145); TOTAL PROTEIN 7.4 g/dL (6.3-8.2)
[2018-06-04] MEDS: INSULIN REG, HUMAN 100 UNIT/ML 3 ML VIAL (PYX) SUBCUT PRN ×2 (10:56→21:30)
[2018-06-04] MEDS: DONEPEZIL HCL 5 MG TABLET PO SCH (21:37)
[2018-06-04] MEDS: ATORVASTATIN CALCIUM 20 MG TABLET PO SCH (21:39)
[2018-06-04] MEDS: ACETAMINOPHEN 325 MG TABLET PO PRN (21:40)
[2018-06-05] MEDS: CHOLECALCIFEROL (D3) 1,000 UNIT TABLET PO SCH (09:34)
[2018-06-05] MEDS: LOSARTAN POTASSIUM 50 MG TABLET PO SCH (09:34)
[2018-06-05] MEDS: RISPERIDONE 0.25 MG TABLET PO PRN ×2 (09:35→21:54)
[2018-06-05] MEDS: AMLODIPINE BESYLATE 5 MG TABLET PO SCH (09:35)
[2018-06-05] MEDS: BUSPIRONE HCL 10 MG TABLET PO SCH ×2 (09:35→21:54)
[2018-06-05] MEDS: GLIPIZIDE 10 MG TABLET PO SCH (09:35)
[2018-06-05] MEDS: CYANOCOBALAMIN (VITAMIN B-12) 1,000 MCG TABLET PO SCH (09:45)
[2018-06-05] MEDS: VALPROATE SODIUM SYRUP 250 MG/5 ML UDCUP PO SCH ×2 (09:45→21:55)
--- NOTE | 2018-06-05 09:51 | ER Document Report ---
Doctor's Note Notes: 06/05/18 09:50 Rounds: Patient has now been at this facility for a week. He says that he wants to go home and he begins to cry. We are awaiting placement. He is being interviewed this morning by motor vehicle field representative for [facility]. Vital signs were all essentially normal. Lab studies are all essentially normal. His valproic acid level is therapeutic. Patient appears to be medically stable for transfer or discharge. Jaqueline Huitron MD
[2018-06-05] MEDS: INSULIN REG, HUMAN 100 UNIT/ML 3 ML VIAL (PYX) SUBCUT PRN ×2 (11:52→21:57)
[2018-06-05] MEDS: ATORVASTATIN CALCIUM 20 MG TABLET PO SCH (21:54)
[2018-06-05] MEDS: DONEPEZIL HCL 5 MG TABLET PO SCH (21:54)
[2018-06-05] MEDS: ACETAMINOPHEN 325 MG TABLET PO PRN (21:55)
[2018-06-06] MEDS: INSULIN REG, HUMAN 100 UNIT/ML 3 ML VIAL (PYX) SUBCUT PRN ×3 (06:58→20:41)
--- NOTE | 2018-06-06 10:09 | ER Document Report ---
Doctor's Note Notes: 06/06/18 10:08 Rounds: No change in condition. Patient says he wants to go home. Was evaluated yesterday by retail field representative of [facility], but feeling is patient may not be as demented as earlier thought and probably needs assisted living, rather than a dementia facility. Vital signs were all stable. Patient appears to be medically stable for transfer or discharge. Jaqueline Huitron MD
[2018-06-06] MEDS: LOSARTAN POTASSIUM 50 MG TABLET PO SCH (10:49)
[2018-06-06] MEDS: RISPERIDONE 0.25 MG TABLET PO PRN ×2 (10:50→23:29)
[2018-06-06] MEDS: CHOLECALCIFEROL (D3) 1,000 UNIT TABLET PO SCH (10:50)
[2018-06-06] MEDS: VALPROATE SODIUM SYRUP 250 MG/5 ML UDCUP PO SCH ×2 (10:51→22:24)
[2018-06-06] MEDS: CYANOCOBALAMIN (VITAMIN B-12) 1,000 MCG TABLET PO SCH (10:51)
[2018-06-06] MEDS: GLIPIZIDE 10 MG TABLET PO SCH (10:51)
[2018-06-06] MEDS: AMLODIPINE BESYLATE 5 MG TABLET PO SCH (10:52)
[2018-06-06] MEDS: BUSPIRONE HCL 10 MG TABLET PO SCH ×2 (10:52→22:23)
[2018-06-06] MEDS: ATORVASTATIN CALCIUM 20 MG TABLET PO SCH (22:23)
[2018-06-06] MEDS: DONEPEZIL HCL 5 MG TABLET PO SCH (22:23)
[2018-06-07] MEDS: INSULIN REG, HUMAN 100 UNIT/ML 3 ML VIAL (PYX) SUBCUT PRN ×3 (06:50→22:00)
[2018-06-07] MEDS: LOSARTAN POTASSIUM 50 MG TABLET PO SCH (09:46)
[2018-06-07] MEDS: AMLODIPINE BESYLATE 5 MG TABLET PO SCH (09:46)
[2018-06-07] MEDS: BUSPIRONE HCL 10 MG TABLET PO SCH ×2 (09:46→21:41)
[2018-06-07] MEDS: CHOLECALCIFEROL (D3) 1,000 UNIT TABLET PO SCH (09:46)
[2018-06-07] MEDS: RISPERIDONE 0.25 MG TABLET PO PRN ×2 (09:47→21:40)
[2018-06-07] MEDS: GLIPIZIDE 10 MG TABLET PO SCH (09:47)
[2018-06-07] MEDS: CYANOCOBALAMIN (VITAMIN B-12) 1,000 MCG TABLET PO SCH (09:58)
[2018-06-07] MEDS: VALPROATE SODIUM SYRUP 250 MG/5 ML UDCUP PO SCH ×2 (09:59→21:41)
--- NOTE | 2018-06-07 10:23 | ER Document Report ---
Doctor's Note Notes: 06/07/18 10:22 Patient ambulating in the halls without difficulties, he just showered, no complaints at this point in time, when I attempted to discuss the discharge plan with him he stated that he has a home that he wants to go to, still awaiting placement of patient as it is unsafe for him to return home by himself at this point in time, will work with social work to secure appropriate placement, otherwise patient is medically stable for transfer
[2018-06-07] MEDS: ATORVASTATIN CALCIUM 20 MG TABLET PO SCH (21:40)
[2018-06-07] MEDS: ACETAMINOPHEN 325 MG TABLET PO PRN (21:40)
[2018-06-07] MEDS: DONEPEZIL HCL 5 MG TABLET PO SCH (21:41)
[2018-06-08] MEDS: CHOLECALCIFEROL (D3) 1,000 UNIT TABLET PO SCH (09:53)
[2018-06-08] MEDS: AMLODIPINE BESYLATE 5 MG TABLET PO SCH (09:54)
[2018-06-08] MEDS: CYANOCOBALAMIN (VITAMIN B-12) 1,000 MCG TABLET PO SCH (09:54)
[2018-06-08] MEDS: BUSPIRONE HCL 10 MG TABLET PO SCH ×2 (09:54→21:42)
[2018-06-08] MEDS: GLIPIZIDE 10 MG TABLET PO SCH (09:54)
[2018-06-08] MEDS: LOSARTAN POTASSIUM 50 MG TABLET PO SCH (09:54)
[2018-06-08] MEDS: VALPROATE SODIUM SYRUP 250 MG/5 ML UDCUP PO SCH ×2 (09:54→21:43)
--- NOTE | 2018-06-08 11:01 | RADIOLOGY REPORT (SQ) ---
EXAM DESCRIPTION: CHEST 2 VIEWS COMPLETED DATE/TIME: 06/08/2018 10:29 am REASON FOR STUDY: cough, LLL crackles COMPARISON: Chest x-ray 01/01/2018, 05/21/2016. EXAM PARAMETERS: NUMBER OF VIEWS: two views TECHNIQUE: Digital Frontal and Lateral radiographic views of the chest acquired. RADIATION DOSE: NA LIMITATIONS: none FINDINGS: LUNGS AND PLEURA: No consolidation, pneumothorax or pleural effusion. MEDIASTINUM AND HILAR STRUCTURES: No masses or contour abnormalities. HEART AND VASCULAR STRUCTURES: The heart is mildly enlarged. There is mild interstitial edema. BONES: Multilevel degenerative changes are seen within the spine. HARDWARE: None in the chest. IMPRESSION: Mild cardiomegaly and mild interstitial edema. TECHNICAL DOCUMENTATION: JOB ID: [id number] [employer]- All Rights Reserved Reading location - IP/workstation name: [email or web address]
[2018-06-08] MEDS: INSULIN REG, HUMAN 100 UNIT/ML 3 ML VIAL (PYX) SUBCUT PRN ×2 (11:26→22:04)
--- NOTE | 2018-06-08 20:49 | ER Document Report ---
Doctor's Note Notes: 06/08/18 20:42 Nursing reports patient has had a productive cough all night, he has not been hypoxic, tachypneic or febrile. Patient admits a cough for several weeks. Chest x-ray does not reveal any focal infiltrate. Says possible interstitial edema however his lungs are clear. At present no indication for antibiotics or diuretics. We will continue to monitor. Patient still awaits placement at [facility] [[email or web address]
[2018-06-08] MEDS: ATORVASTATIN CALCIUM 20 MG TABLET PO SCH (21:42)
[2018-06-08] MEDS: RISPERIDONE 0.25 MG TABLET PO PRN (21:42)
[2018-06-08] MEDS: DONEPEZIL HCL 5 MG TABLET PO SCH (21:43)
[2018-06-09] MEDS: INSULIN REG, HUMAN 100 UNIT/ML 3 ML VIAL (PYX) SUBCUT PRN ×3 (06:43→16:17)
[2018-06-09] MEDS: GLIPIZIDE 10 MG TABLET PO SCH (09:19)
[2018-06-09] MEDS: CHOLECALCIFEROL (D3) 1,000 UNIT TABLET PO SCH (09:19)
[2018-06-09] MEDS: VALPROATE SODIUM SYRUP 250 MG/5 ML UDCUP PO SCH (09:20)
[2018-06-09] MEDS: RISPERIDONE 0.25 MG TABLET PO PRN (09:20)
[2018-06-09] MEDS: LOSARTAN POTASSIUM 50 MG TABLET PO SCH (09:20)
[2018-06-09] MEDS: BUSPIRONE HCL 10 MG TABLET PO SCH (09:20)
[2018-06-09] MEDS: CYANOCOBALAMIN (VITAMIN B-12) 1,000 MCG TABLET PO SCH (09:20)
[2018-06-09] MEDS: AMLODIPINE BESYLATE 5 MG TABLET PO SCH (09:20)
--- NOTE | 2018-06-09 09:25 | ER Document Report ---
Doctor's Note Notes: 06/09/18 09:21 Patient pleasant and cooperative, reports that he is excited that he got a hospital bed to sleep on last night and the head goes up and down, he also has pictures of [place] Palacios hanging on his wall in his room and made sure to show me these as well, denies any complaints at the present time, otherwise medically stable, awaiting placement
[2018-06-10] MEDS: BUSPIRONE HCL 10 MG TABLET PO SCH ×3 (00:15→23:55)
[2018-06-10] MEDS: VALPROATE SODIUM SYRUP 250 MG/5 ML UDCUP PO SCH ×3 (00:15→23:55)
[2018-06-10] MEDS: ATORVASTATIN CALCIUM 20 MG TABLET PO SCH ×2 (00:15→23:55)
[2018-06-10] MEDS: INSULIN REG, HUMAN 100 UNIT/ML 3 ML VIAL (PYX) SUBCUT PRN ×4 (00:15→16:26)
[2018-06-10] MEDS: DONEPEZIL HCL 5 MG TABLET PO SCH ×2 (00:15→23:55)
[2018-06-10] MEDS: RISPERIDONE 0.25 MG TABLET PO PRN ×3 (00:15→23:55)
[2018-06-10] MEDS: LOSARTAN POTASSIUM 50 MG TABLET PO SCH (09:35)
[2018-06-10] MEDS: GLIPIZIDE 10 MG TABLET PO SCH (09:36)
[2018-06-10] MEDS: CHOLECALCIFEROL (D3) 1,000 UNIT TABLET PO SCH (09:37)
[2018-06-10] MEDS: AMLODIPINE BESYLATE 5 MG TABLET PO SCH (09:37)
[2018-06-10] MEDS: CYANOCOBALAMIN (VITAMIN B-12) 1,000 MCG TABLET PO SCH (09:37)
--- NOTE | 2018-06-10 10:07 | ER Document Report ---
Doctor's Note Notes: 06/10/18 10:06 Rounds: Chart reviewed. Patient interviewed. Patient is calm, collected, not agitated, not tearful, smiling and happy with his new hospital bed and shows off his pictures of [place] Palac[place] on the wall. Still waiting for placement for this patient. Vital signs are all normal. No new lab studies. Patient appears to be medically stable for transfer or discharge. Jaqueline Huitron MD
[2018-06-11] MEDS: INSULIN REG, HUMAN 100 UNIT/ML 3 ML VIAL (PYX) SUBCUT PRN ×3 (08:30→18:25)
[2018-06-11] MEDS: GLIPIZIDE 10 MG TABLET PO SCH (10:41)
[2018-06-11] MEDS: AMLODIPINE BESYLATE 5 MG TABLET PO SCH (10:41)
[2018-06-11] MEDS: LOSARTAN POTASSIUM 50 MG TABLET PO SCH (10:41)
[2018-06-11] MEDS: CHOLECALCIFEROL (D3) 1,000 UNIT TABLET PO SCH (10:41)
[2018-06-11] MEDS: VALPROATE SODIUM SYRUP 250 MG/5 ML UDCUP PO SCH ×2 (10:41→22:13)
[2018-06-11] MEDS: BUSPIRONE HCL 10 MG TABLET PO SCH ×2 (10:41→22:13)
[2018-06-11] MEDS: CYANOCOBALAMIN (VITAMIN B-12) 1,000 MCG TABLET PO SCH (10:41)
--- NOTE | 2018-06-11 10:44 | ER Document Report ---
Doctor's Note Notes: 06/11/18 10:44 Rounds: Chart reviewed and patient interviewed. Patient is very positive and upbeat and happy. Vital signs are all normal. Patient appears to be medically stable for transfer or discharge. Awaiting placement. Jaqueline Huitron MD
[2018-06-11] MEDS: ATORVASTATIN CALCIUM 20 MG TABLET PO SCH (22:13)
[2018-06-11] MEDS: DONEPEZIL HCL 5 MG TABLET PO SCH (22:14)
[2018-06-12] MEDS: INSULIN REG, HUMAN 100 UNIT/ML 3 ML VIAL (PYX) SUBCUT PRN ×2 (06:53→11:35)
[2018-06-12] MEDS: VALPROATE SODIUM SYRUP 250 MG/5 ML UDCUP PO SCH (09:27)
[2018-06-12] MEDS: LOSARTAN POTASSIUM 50 MG TABLET PO SCH (09:28)
[2018-06-12] MEDS: GLIPIZIDE 10 MG TABLET PO SCH (09:29)
[2018-06-12] MEDS: BUSPIRONE HCL 10 MG TABLET PO SCH (09:29)
[2018-06-12] MEDS: CHOLECALCIFEROL (D3) 1,000 UNIT TABLET PO SCH (09:30)
[2018-06-12] MEDS: AMLODIPINE BESYLATE 5 MG TABLET PO SCH (09:30)
[2018-06-12] MEDS: CYANOCOBALAMIN (VITAMIN B-12) 1,000 MCG TABLET PO SCH (09:45)
[2018-06-13] MEDS: VALPROATE SODIUM SYRUP 250 MG/5 ML UDCUP PO SCH ×2 (01:30→10:07)
[2018-06-13] MEDS: DONEPEZIL HCL 5 MG TABLET PO SCH (01:31)
[2018-06-13] MEDS: ATORVASTATIN CALCIUM 20 MG TABLET PO SCH (01:32)
[2018-06-13] MEDS: BUSPIRONE HCL 10 MG TABLET PO SCH ×2 (01:32→10:08)
[2018-06-13] MEDS: INSULIN REG, HUMAN 100 UNIT/ML 3 ML VIAL (PYX) SUBCUT PRN ×4 (01:37→16:11)
--- NOTE | 2018-06-13 09:35 | ER Document Report ---
Doctor's Note Notes: 06/13/18 09:35 72-year-old male who is pending apparent placement. Vital signs stable. Patient is very calm and cooperative during my interactions.
[2018-06-13] MEDS: LOSARTAN POTASSIUM 50 MG TABLET PO SCH (10:07)
[2018-06-13] MEDS: AMLODIPINE BESYLATE 5 MG TABLET PO SCH (10:07)
[2018-06-13] MEDS: CYANOCOBALAMIN (VITAMIN B-12) 1,000 MCG TABLET PO SCH (10:07)
[2018-06-13] MEDS: GLIPIZIDE 10 MG TABLET PO SCH (10:07)
[2018-06-13] MEDS: RISPERIDONE 0.25 MG TABLET PO PRN (10:08)
[2018-06-13] MEDS: CHOLECALCIFEROL (D3) 1,000 UNIT TABLET PO SCH (10:08)
--- NOTE | 2018-06-13 18:43 | ER Document Report ---
Doctor's Note Notes: 06/13/18 18:42 Calm and cooperative throughout the day. Vital signs are stable. No complaints. We walked the patient around the emergency department for exercise. Still attempting to find placement.
[2018-06-13] MEDS ORDERED: VALPROATE SODIUM SYRUP 250 MG/5 ML UDCUP ONE (23:47)
[2018-06-14] MEDS: BUSPIRONE HCL 10 MG TABLET PO SCH ×3 (00:26→22:49)
[2018-06-14] MEDS: DONEPEZIL HCL 5 MG TABLET PO SCH ×2 (00:26→22:51)
[2018-06-14] MEDS: VALPROATE SODIUM SYRUP 250 MG/5 ML UDCUP PO SCH ×3 (00:27→22:46)
[2018-06-14] MEDS: ATORVASTATIN CALCIUM 20 MG TABLET PO SCH ×2 (00:27→22:49)
[2018-06-14] MEDS: INSULIN REG, HUMAN 100 UNIT/ML 3 ML VIAL (PYX) SUBCUT PRN ×3 (00:27→11:20)
[2018-06-14] MEDS: CHOLECALCIFEROL (D3) 1,000 UNIT TABLET PO SCH (09:05)
[2018-06-14] MEDS: LOSARTAN POTASSIUM 50 MG TABLET PO SCH (09:05)
[2018-06-14] MEDS: AMLODIPINE BESYLATE 5 MG TABLET PO SCH (09:06)
[2018-06-14] MEDS: CYANOCOBALAMIN (VITAMIN B-12) 1,000 MCG TABLET PO SCH (09:06)
[2018-06-14] MEDS: GLIPIZIDE 10 MG TABLET PO SCH (09:06)
--- NOTE | 2018-06-14 09:26 | ER Document Report ---
Doctor's Note Notes: 06/14/18 09:25 72-year-old male awaiting placement. Vital signs are stable. Patient is very calm and cooperative. We are awaiting for possible placement.
[2018-06-15] MEDS: INSULIN REG, HUMAN 100 UNIT/ML 3 ML VIAL (PYX) SUBCUT PRN ×2 (07:26→11:12)
--- NOTE | 2018-06-15 09:32 | ER Document Report ---
Doctor's Note Notes: 06/15/18 09:31 Medical rounds: Chart reviewed and patient interviewed briefly. Vital signs remained stable. Laboratory values are satisfactory. Patient is alert, oriented, and cooperative. He verbalizes no somatic complaint. It is my understanding that transfer has been arranged and will occur today. He is medically stable.
[2018-06-15] MEDS: VALPROATE SODIUM SYRUP 250 MG/5 ML UDCUP PO SCH (09:42)
[2018-06-15] MEDS: CHOLECALCIFEROL (D3) 1,000 UNIT TABLET PO SCH (09:43)
[2018-06-15] MEDS: LOSARTAN POTASSIUM 50 MG TABLET PO SCH (09:43)
[2018-06-15] MEDS: RISPERIDONE 0.25 MG TABLET PO PRN (09:43)
[2018-06-15] MEDS: BUSPIRONE HCL 10 MG TABLET PO SCH (09:43)
[2018-06-15] MEDS: CYANOCOBALAMIN (VITAMIN B-12) 1,000 MCG TABLET PO SCH (09:43)
[2018-06-15] MEDS: AMLODIPINE BESYLATE 5 MG TABLET PO SCH (09:43)
[2018-06-15 11:40] VITALS: BP 147/78
== END 2018-06-15 11:42 | disposition other institution (70) ==
LOC: ER 14:19
DX: G30.9 Alzheimer's disease, unspecified (principal); F02.80 Dementia in other diseases classified elsewhere, unspecified severity, without behavioral disturbance, psychotic disturbance, mood disturbance, and anxiety; I25.10 Atherosclerotic heart disease of native coronary artery without angina pectoris; E78.00 Pure hypercholesterolemia, unspecified; I10 Essential (primary) hypertension; I25.2 Old myocardial infarction; Z90.49 Acquired absence of other specified parts of digestive tract
CPT/HCPCS: 99285; 96372; 36415; 82962; 85025; 80053; 80164; 71046; A9270 ×155; J1200; J1630; J2060; J3490; J1815